=== PATIENT | male | born 1970 | race Caucasian/White ===

== ENCOUNTER 2019-05-24 10:22 | Inpatient (IN) | payer SELFPAY ==
[2019-05-24 10:47] LABS: HEMATOCRIT 54.1 % (37.9-51.0); HEMOGLOBIN 18.4 g/dL (13.5-17.0); MEAN CORPUSCULAR HEMOGLOBIN 34.9 pg (27.0-33.4); MEAN CORPUSCULAR HGB CONC 34.1 g/dL (32.0-36.0); MEAN CORPUSCULAR VOLUME 102 fl (80-97); RED BLOOD COUNT 5.28 10^6/uL (4.35-5.55); WHITE BLOOD COUNT 13.4 10^3/uL (4.0-10.5)
[2019-05-24] MEDS ORDERED: NORMAL SALINE 1000 ML 1,000 ML IV ONE ×2 (10:50→11:53)
[2019-05-24] MEDS ORDERED: PANTOPRAZOLE SODIUM 40 MG VIAL IV ONE (10:50)
[2019-05-24] MEDS ORDERED: LORAZEPAM INJ 2 MG/1 ML VIAL IV ONE ×5 (10:51→22:38)
[2019-05-24] MEDS ORDERED: ONDANSETRON HCL INJ/PF 4 MG/2 ML SDV IV ONE (10:51)
[2019-05-24 11:15] LABS: PLATELET COUNT 94 10^3/uL (150-450)
[2019-05-24 11:16] LABS: ABSOLUTE LYMPHOCYTES# (MANUAL) 0.8 10^3/uL (0.5-4.7); ABSOLUTE MONOCYTES # (MANUAL) 0.4 10^3/uL (0.1-1.4); BAND NEUTROPHILS % (MANUAL) 4 % (3-5); BASOPHILS % (MANUAL) 0 % (0-2); EOSINOPHILS % (MANUAL) 0 % (0-6); LYMPHOCYTES % (MANUAL) 6 % (13-45); MONOCYTES % (MANUAL) 3 % (3-13); SEGMENTED NEUTROPHILS % (MAN) 87 % (42-78); TOTAL CELLS COUNTED 100
[2019-05-24 11:20] LABS: PLATELET COMMENT DECREASED
[2019-05-24 11:21] LABS: INTERNATIONAL RATION (INR) 1.65; PARTIAL THROMBOPLASTIN TIME 38.5 SEC (23.5-35.8); PROTHROMBIN TIME 19.7 SEC (11.4-15.4)
[2019-05-24] MEDS ORDERED: CEFEPIME 2 GM/D5W RTU 50 ML IV ONE (11:36)
[2019-05-24] MEDS ORDERED: VANCOMYCIN HCL INJ 1000 MG VIAL IV ONE (11:37)
[2019-05-24 11:40] LABS: ALBUMIN 2.8 g/dL (3.5-5.0); ALCOHOL 158 mg/dL (NONE DETECTED); ALKALINE PHOSPHATASE 128 U/L (38-126); ASPARTATE AMINO TRANSFERASE 191 U/L (17-59); BLOOD UREA NITROGEN 12 mg/dL (7-20); CALCIUM 8.3 mg/dL (8.4-10.2); GLUCOSE 129 mg/dL (75-110); POTASSIUM 4.3 mmol/L (3.6-5.0); TOTAL PROTEIN 5.7 g/dL (6.3-8.2)
[2019-05-24 11:41] LABS: ACETAMINOPHEN < 10 ug/mL (10-30)
[2019-05-24 11:45] LABS: CARBON DIOXIDE 15 mmol/L (22-30); CHLORIDE 94 mmol/L (98-107)
[2019-05-24 11:48] LABS: ANION GAP 22 (5-19)
[2019-05-24] MEDS ORDERED: CEFEPIME HCL 2 GM in DEXTROSE 5%-WATER 50 ML IV ONE (12:00)
--- NOTE | 2019-05-24 12:32 | RADIOLOGY REPORT (SQ) ---
EXAM DESCRIPTION: ACUTE ABDOMEN SERIES IMAGES COMPLETED DATE/TIME: 05/24/2019 12:16 pm REASON FOR STUDY: n/v/d COMPARISON: None. NUMBER OF VIEWS: Three views. TECHNIQUE: Frontal chest, supine abdomen and upright/decubitus abdomen radiographic images acquired. LIMITATIONS: None. FINDINGS: CHEST: Lungs clear of infiltrates. FREE AIR: None. No abnormal gas collections. BOWEL GAS PATTERN: Nonobstructive pattern. No dilated loops or air fluid levels. CALCIFICATIONS: No suspicious calcifications. HARDWARE: None in the abdomen. SOFT TISSUES: No gross mass or suggestion of organomegaly. BONES: No acute fracture. No worrisome bone lesions. OTHER: No other significant finding. IMPRESSION: NO RADIOGRAPHIC EVIDENCE FOR ACUTE ABDOMINAL DISEASE. TECHNICAL DOCUMENTATION: JOB ID: [id number] 2010 [email or web address]- All Rights Reserved Reading location - IP/workstation name: [email or web address]
[2019-05-24] MEDS ORDERED: NOREPINEPHRINE BITARTRATE INJ/PF 4 MG/4 ML SDV IV ONE ×3 (14:14→22:54)
[2019-05-24] MEDS: DEXTROSE 5%-WATER 250 ML with NOREPINEPHRINE BITARTRATE 4 MG IV PRN ×6 (14:30→22:56)
[2019-05-24 14:59] LABS: AMORPHOUS SEDIMENT,URINE TRACE /HPF; APPEARANCE,URINE TURBID; BILIRUBIN,URINE NEGATIVE (NEGATIVE); COLOR,URINE AMBER; GLUCOSE, URINE 50 mg/dL (NEGATIVE); KETONES,URINE TRACE mg/dL (NEGATIVE); LEUKOCYTE ESTERASE,URINE NEGATIVE (NEGATIVE); NITRITE,URINE NEGATIVE (NEGATIVE); PROTEIN,URINE 100 mg/dL (NEGATIVE); URINE SPECIFIC GRAVITY 1.018; UROBILINOGEN,URINE NEGATIVE mg/dL (<2.0)
[2019-05-24 15:10] LABS: URINE AMPHETAMINES SCREEN NEGATIVE; URINE BARBITURATES SCREEN NEGATIVE; URINE BENZODIAZEPINES SCREEN NEGATIVE; URINE COCAINE SCREEN NEGATIVE; URINE MARIJUANA (THC) SCREEN NEGATIVE; URINE METHADONE SCREEN NEGATIVE; URINE PHENCYCLIDINE SCREEN NEGATIVE
[2019-05-24] MEDS ORDERED: ADENOSINE INJ/PF 6 MG/2 ML SDV IV ONE (16:19)
[2019-05-24] MEDS ORDERED: AMIODARONE HCL INJ 150 MG/3 ML VIAL IV ONE (16:19)
[2019-05-24] MEDS ORDERED: SODIUM BICARBONATE 8.4% INJ 50 MEQ/50 ML DISP.SYRIN ONE ×3 (16:19→19:17)
--- NOTE | 2019-05-24 17:04 | RADIOLOGY REPORT (SQ) ---
EXAM DESCRIPTION: CT ABD/PELVIS WITH IV ORAL IMAGES COMPLETED DATE/TIME: 05/24/2019 4:35 pm REASON FOR STUDY: abd pain COMPARISON: None. TECHNIQUE: CT scan of the abdomen and pelvis performed using helical scanning technique with dynamic intravenous contrast injection. He will oral contrast. Images reviewed with lung, soft tissue, and bone windows. Reconstructed coronal and sagittal MPR images reviewed. Delayed images for evaluation o f the urinary system also acquired. All images stored on PACS. All CT scanners at this facility use dose modulation, iterative reconstruction, and/or weight based d osing when appropriate to reduce radiation dose to as low as reasonably achievable (ALARA). [facility]: Dose Right [facility]: CareDose [facility]: Dose Right [facility]: Teradose 4D [facility]: [employer] CONTRAST TYPE AND DOSE: 80 Omnipaque 350- low osmolar. RENAL FUNCTION: Creatinine 1.37 RADIATION DOSE: . LIMITATIONS: None. FINDINGS: LOWER CHEST: See separate report of the CT of the chest. LIVER: Diffuse fatty infiltration of the liver. Heterogeneous pattern. No focal masses. SPLEEN: Normal size. No focal lesions. PANCREAS: Extensive peripancreatic fluid. Fatty pancreas. GALLBLADDER: No identified stones by CT criteria. No inflammatory changes to suggest cholecystitis. ADRENAL GLANDS: No significant masses or asymmetry. RIGHT KIDNEY AND URETER: No solid masses. No significant calcifications. No hydronephrosis or hyd roureter. Little contrast seen in the collecting system on delayed images. LEFT KIDNEY AND URETER: No solid masses. No significant calcifications. No hydronephrosis or hydr oureter. Little contrast seen the collecting system on delayed images. AORTA AND VESSELS: No aneurysm. No dissection. Renal arteries, SMA, celiac without stenosis. RETROPERITONEUM: No retroperitoneal adenopathy, hemorrhage or masses. BOWEL AND PERITONEAL CAVITY: No inflammatory changes in the bowel. There is marked ascites. Fluid i s seen in the perineum and along the gutters. Around the liver spleen in the pancreas. APPENDIX: Not visualized. PELVIS: Fluid in the pelvis. Bladder unremarkable. ABDOMINAL WALL: No masses. No hernias. BONES: No significant or acute findings. OTHER: No other significant finding. IMPRESSION: Marked fatty liver with a diffuse heterogeneous pattern to the liver but no focal masses . Extensive fluid around the pancreas and extending along the gutters and into the abdomen pelvis. Flu id around the liver and spleen. These findings related either to cirrhosis or pancreatitis. No contrast seen in the ureters on delayed imaging. Question early phase of imaging versus renal tub ular dysfunction. TECHNICAL DOCUMENTATION: JOB ID: [id number] Quality ID # 436: Final reports with documentation of one or more dose reduction techniques (e.g., Au tomated exposure control, adjustment of the mA and/or kV according to patient size, use of iterative reconstruction technique) 2010 [employer]- All Rights Reserved Reading location - IP/workstation name: [email or web address]
--- NOTE | 2019-05-24 17:06 | RADIOLOGY REPORT (SQ) ---
EXAM DESCRIPTION: CTA CHEST IMAGES COMPLETED DATE/TIME: 05/24/2019 4:36 pm REASON FOR STUDY: tachycardia COMPARISON: None. TECHNIQUE: CT scan of the chest performed using helical scanning technique with dynamic intravenous contrast injection. Images reviewed with lung, soft tissue and bone windows. Reconstructed coronal and sagittal MPR images reviewed. Additional 3 dimensional post-processing performed to develop Maximal Intensity Projection images (SD P). All images stored on PACS. All CT scanners at this facility use dose modulation, iterative reconstruction, and/or weight based d osing when appropriate to reduce radiation dose to as low as reasonably achievable (ALARA). [facility]: Dose Right [facility]: CareDose [facility]: Dose Right [facility]: Teradose 4D [facility]: [employer] CONTRAST TYPE AND DOSE: contrast/concentration: Isovue mg/ml; Total Contrast Delivered: 80.0 ml; To german Saline Delivered: 80.0 ml Contrast bolus adequate for pulmonary arteries and aorta. RENAL FUNCTION: Creatinine 1.37 RADIATION DOSE: CT Rad equipment meets quality standard of care and radiation dose reduction techniq ues were employed. CTDIvol: 7.6 - 29.8 mGy. DLP: 2886 mGy-cm. . LIMITATIONS: None. FINDINGS: LUNGS AND PLEURA: Fluid in the interstitium. Small effusions and atelectasis at the bases . No pneumothorax. AORTA AND GREAT VESSELS: No aneurysm. Contrast bolus not optimized for the aorta. HEART: No pericardial effusion. No significant coronary artery calcifications. PULMONARY ARTERIES: No emboli visualized in the main pulmonary arteries or the segmental branches. HILAR AND MEDIASTINAL STRUCTURES: No identified masses or abnormal nodes. HARDWARE: None in the chest. UPPER ABDOMEN: See separate report of the CT of the abdomen. THYROID AND OTHER SOFT TISSUES: No masses. No adenopathy. BONES: No acute or significant finding. 3D MIPS: Confirm above findings. OTHER: No other significant finding. IMPRESSION: No pulmonary emboli. Fluid in the interstitium of the lungs with basilar opacities and small effusions. COMMENT: Quality ID # 436: Final reports with documentation of one or more dose reduction techniques (e.g., Automated exposure control, adjustment of the mA and/or kV according to patient size, use of iterative reconstruction technique) TECHNICAL DOCUMENTATION: JOB ID: [id number] 2010 [employer]- All Rights Reserved Reading location - IP/workstation name: [email or web address]
[2019-05-24] MEDS ORDERED: THIAMINE HCL INJ 200 MG/2 ML VIAL IM ONE (17:49)
[2019-05-24] MEDS ORDERED: EPINEPHRINE INJ/PF 1 MG/1 ML AMPULE ONE (18:06)
[2019-05-24] MEDS ORDERED: DEXTROSE 5%-WATER 250 ML with EPINEPHRINE/PF 1 MG IV PRN ×2 (18:12)
--- NOTE | 2019-05-24 18:20 | RADIOLOGY REPORT (SQ) ---
EXAM DESCRIPTION: CT HEAD WITHOUT IMAGES COMPLETED DATE/TIME: 05/24/2019 4:35 pm REASON FOR STUDY: altered mental status COMPARISON: None. TECHNIQUE: Axial images acquired through the brain without intravenous contrast. Images reviewed wi th bone, brain and subdural windows. Additional sagittal and coronal reconstructions were generated. Images stored on PACS. All CT scanners at this facility use dose modulation, iterative reconstruction, and/or weight based d osing when appropriate to reduce radiation dose to as low as reasonably achievable (ALARA). [facility]: Dose Right [facility]: CareDose [facility]: Dose Right [facility]: Teradose 4D [facility]: [employer] RADIATION DOSE: CT Rad equipment meets quality standard of care and radiation dose reduction techniq ues were employed. CTDIvol: 53.2 mGy. DLP: 1070 mGy-cm. mGy. LIMITATIONS: None. FINDINGS: VENTRICLES: Normal size and contour. CEREBRUM: No masses. No hemorrhage. No midline shift. No evidence for acute infarction. Normal gra y/white matter differentiation. No areas of low density in the white matter. CEREBELLUM: No masses. No hemorrhage. No alteration of density. No evidence for acute infarction. EXTRAAXIAL SPACES: No fluid collections. No masses. ORBITS AND GLOBE: No intra- or extraconal masses. Normal contour of globe without masses. CALVARIUM: No fracture. PARANASAL SINUSES: No fluid or mucosal thickening. SOFT TISSUES: No mass or hematoma. OTHER: No other significant finding. IMPRESSION: NORMAL BRAIN CT WITHOUT CONTRAST. EVIDENCE OF ACUTE STROKE: NO. COMMENT: Quality ID # 436: Final reports with documentation of one or more dose reduction techniques (e.g., Automated exposure control, adjustment of the mA and/or kV according to patient size, use of iterative reconstruction technique) TECHNICAL DOCUMENTATION: JOB ID: [id number] 2010 [employer]- All Rights Reserved Reading location - IP/workstation name: [email or web address]
[2019-05-24] MEDS ORDERED: ALBUMIN HUMAN 500 ML IV ONE ×2 (18:30→18:38)
--- NOTE | 2019-05-24 18:32 | ER Document Report ---
Entered by FOX DEL TORO SCRIBE 05/24/19 1606 Acting as scribe for:SHERRIE SCHULER MD ED GI/ - General Chief Complaint: Abdominal Pain Stated Complaint: STOMACH PAIN Time Seen by Provider: 05/24/19 10:47 Information source: Emergency Med Personnel Notes: This 48 year old male patient presents to the emergency department today with abdominal pain. Patient arrived by EMS and personnel are at bedside. EMS states the patient had epigastric pain last night after eating [place]ian food and vomited x5 times. EMS states the patient has not urinated for x2 days and had trouble walking this morning. EMS states the patient was hypotensive and tachycardic prior to arriving at the ED. EMS states the patient was pale, vomiting, and his skin was cool. Patient drinks beer daily. - Related Data Allergies/Adverse Reactions: No Known Allergies Allergy (Verified 05/24/19 10:50) Past Medical History - General Information source: Emergency Med Personnel - Social History Smoking Status: Unknown if Ever Smoked Chew tobacco use (# tins/day): No Frequency of alcohol use: 3 / 4 beers a day Drug Abuse: None Family History: None Patient has suicidal ideation: No Patient has homicidal ideation: No - Past Medical History Cardiac Medical History: Reports: Hx Hypercholesterolemia - Immunizations Hx Diphtheria, Pertussis, Tetanus Vaccination: Yes Review of Systems - Review of Systems Constitutional: No symptoms reported EENT: No symptoms reported Cardiovascular: See HPI Respiratory: No symptoms reported Gastrointestinal: See HPI, Abdominal pain, Vomiting Genitourinary: See HPI Male Genitourinary: No symptoms reported Musculoskeletal: No symptoms reported Skin: No symptoms reported Hematologic/Lymphatic: No symptoms reported Neurological/Psychological: No symptoms reported -: Yes All other systems reviewed and negative Physical Exam - Vital signs Vitals: Resp Pulse Ox 28 H 97 05/24/19 10:25 05/24/19 10:25 - General General appearance: Lethargic In distress: Moderate - Moderate to severe distress. - HEENT Head: Normocephalic, Atraumatic Eyes: Normal Pupils: PERRL - Respiratory Respiratory status: No respiratory distress Chest status: Nontender Breath sounds: Normal - Cardiovascular Rhythm: Tachycardia Heart sounds: S1 appreciated, S2 appreciated Normal capillary refill: No - Diminished. Notes: Spider angioma on the upper chest. - Abdominal Distension: Distended, Fluid wave Bowel sounds: Normal Tenderness: Tender. No: Guarding - Extremities General upper extremity: Normal inspection. No: Edema General lower extremity: Normal inspection. No: Edema - Neurological Neuro grossly intact: Yes Cognition: Normal Orientation: AAOx4 - Psychological Associated symptoms: Normal affect, Normal mood - Skin Skin Temperature: Cool Skin Color: Pale Course - Re-evaluation Re-evalutation: 05/24/19 18:24 Patient's condition has worsened over the ED course to requiring a total of 5 L IV fluids a norepinephrine drip for hypotension and the addition of an epinephrine drip at this time to create a systolic blood pressure greater than 77 where he is now. Patient's heart rate tachycardia has improved from 140s down to 105 110 at this time showing a normal sinus rhythm tachycardia. Patient's mental status is somewhat subdued though is easily aroused and is able to carry on a conversation. Patient still appears agitated as though he is perhaps in delirium tremens or is having some other metabolic insult. Patient apparently has acute pancreatitis ascites dehydration and lack of urine output at this time. Patient was cultured x2 and blood cultures and IV antibiotics of vancomycin and cefepime were given. - Vital Signs Vital signs: Temp Pulse Resp BP Pulse Ox 98.0 F 24 H 65/41 L 99 05/24/19 10:45 05/24/19 18:02 05/24/19 18:02 05/24/19 18:02 - Laboratory Result Diagrams: 05/24/19 09:42 05/24/19 11:08 Laboratory results interpreted by me: 05/24/19 05/24/19 05/24/19 09:42 09:42 09:42 WBC 13.4 H Hgb 18.4 H Hct 54.1 H MCV 102 H MCH 34.9 H Plt Count 94 L Seg Neuts % (Manual) 87 H Lymphocytes % (Manual) 6 L Abs Neuts (Manual) 12.2 H PT 19.7 H APTT 38.5 H D-Dimer Sodium Chloride Carbon Dioxide Anion Gap Creatinine Est GFR (MDRD) Non-Af Glucose POC Glucose Lactic Acid 13.2 H Calcium Total Bilirubin Direct Bilirubin AST Alkaline Phosphatase Total Protein Albumin Lipase Urine Protein Urine Glucose (UA) Urine Ketones Urine Blood Acetaminophen 05/24/19 05/24/19 05/24/19 11:08 11:08 14:03 WBC Hgb Hct MCV MCH Plt Count Seg Neuts % (Manual) Lymphocytes % (Manual) Abs Neuts (Manual) PT APTT D-Dimer Sodium 130.9 L Chloride 94 L Carbon Dioxide 15 L Anion Gap 22 H Creatinine 1.37 H Est GFR (MDRD) Non-Af 55 L Glucose 129 H POC Glucose Lactic Acid Calcium 8.3 L Total Bilirubin 2.0 H Direct Bilirubin 1.0 H AST 191 H Alkaline Phosphatase 128 H Total Protein 5.7 L Albumin 2.8 L Lipase 42933.0 H Urine Protein 100 H Urine Glucose (UA) 50 H Urine Ketones TRACE H Urine Blood LARGE H Acetaminophen < 10 L 05/24/19 05/24/19 05/24/19 15:29 15:34 16:45 WBC Hgb Hct MCV MCH Plt Count Seg Neuts % (Manual) Lymphocytes % (Manual) Abs Neuts (Manual) PT APTT D-Dimer > 20.00 H* Sodium Chloride Carbon Dioxide Anion Gap Creatinine Est GFR (MDRD) Non-Af Glucose POC Glucose Lactic Acid 13.1 H Calcium Total Bilirubin Direct Bilirubin AST Alkaline Phosphatase Total Protein Albumin Lipase 08507.6 H Urine Protein Urine Glucose (UA) Urine Ketones Urine Blood Acetaminophen 05/24/19 17:59 WBC Hgb Hct MCV MCH Plt Count Seg Neuts % (Manual) Lymphocytes % (Manual) Abs Neuts (Manual) PT APTT D-Dimer Sodium Chloride Carbon Dioxide Anion Gap Creatinine Est GFR (MDRD) Non-Af Glucose POC Glucose 134 H Lactic Acid Calcium Total Bilirubin Direct Bilirubin AST Alkaline Phosphatase Total Protein Albumin Lipase Urine Protein Urine Glucose (UA) Urine Ketones Urine Blood Acetaminophen - EKG Interpretation by Me Additional EKG results interpreted by me: 05/24/19 16:50 Twelve-lead EKG shows sinus tachycardia rate of 134 05/24/19 17:57 Repeat 1652 shows sinus tach 142 borderline T wave abnormalities inferior leads Repeat EKG done at 1750 T shows a sinus tachycardia [address]-T wave changes. Critical Care Note - Critical Care Note Total time excluding time spent on procedures (mins): 59 - Hypotension, sepsis, pancreatitis, decreased urine output, sinus tachycardia, and mental status changes. Discharge - Discharge Clinical Impression: Intractable nausea and vomiting, Dehydration, Sinus tachycardia, Hypotension, Altered mental status, Acute pancreatitis Condition: Critical Disposition: ADMITTED INPATIENT Admitting Provider: Wolf (Heavy Forging Machine Operator) Unit Admitted: ICU I personally performed the services described in the documentation, reviewed and edited the documentation which was dictated to the scribe in my presence, and it accurately records my words and actions.
[2019-05-24] MEDS ORDERED: ETOMIDATE INJ/PF 20 MG/10 ML SDV IV ONE (19:12)
--- NOTE | 2019-05-24 19:26 | RADIOLOGY REPORT (SQ) ---
EXAM DESCRIPTION: CHEST SINGLE VIEW IMAGES COMPLETED DATE/TIME: 05/24/2019 7:17 pm REASON FOR STUDY: er t1 COMPARISON: CT scan 05/24/2019 EXAM PARAMETERS: NUMBER OF VIEWS: One view. TECHNIQUE: Single frontal radiographic view of the chest acquired. RADIATION DOSE: NA LIMITATIONS: None. FINDINGS: LUNGS AND PLEURA: Increasing bibasilar opacities. MEDIASTINUM AND HILAR STRUCTURES: No masses. Contour normal. HEART AND VASCULAR STRUCTURES: Heart normal in size. Normal vasculature. BONES: No acute findings. HARDWARE: Venous access catheter via right IJ approach. Tip in the right atrium. OTHER: No other significant finding. IMPRESSION: Venous access catheter expected location. Increasing basilar opacities. TECHNICAL DOCUMENTATION: JOB ID: [id number] 2010 [employer]- All Rights Reserved Reading location - IP/workstation name: [email or web address]
[2019-05-24] MEDS ORDERED: PROPOFOL 1,000 MG/100 ML INFUS..BTL IV PRN (19:33)
[2019-05-24] MEDS ORDERED: DEXMEDETOMIDINE IN 0.9 % NACL 400 MCG/100 ML RTUPB IV ONE (19:35)
--- NOTE | 2019-05-24 20:03 | Operative Report ---
Bedside Procedure - History of Present Illness History of Present Illness: 48-year-old male presented with abdominal pain after eating Sudanese food. He presented to the emergency room with severe hypotension with tachycardia and required vasopressor therapy. Was placed on Levophed and epinephrine required central access secondary to dehydration and the need for vasopressor therapy. Indication for Procedure: Shock Date: 05/24/19 Provider: TOMI CHOE - Central Line Right Internal jugular Time completed: 18:45 Consent obtained: Yes Central line pre-insertion: Sterile PPE donned, Chloraprep applied, Sterile drapes applied Central line lumen type: Triple Anesthetic type: 1% Lidocaine mL's of anesthesia: 4 Ultrasound guided: Yes CM at insertion site: 15 Line secured with sutures: Yes Central line post-insertion: Blood return from lumens, Biopatch applied, Sutured, Sterile dressing applied, Position confirmed w/ CXR, Other - Wire confirmed inside internal jugular tip of triple-lumen catheter at RA SVC junction Number of attempts: 2 Complications: No
[2019-05-24] MEDS ORDERED: NORMAL SALINE INJ/PF 0.9% 10 ML SDV IV PRN (20:09)
[2019-05-24] MEDS ORDERED: PHARMACY COMMUNICATION ORDER MC NR (20:15)
[2019-05-24 20:22] LABS: CHOLESTEROL 275.65 mg/dL (0-200); PHOSPHORUS 5.4 mg/dL (2.5-4.5); TRIGLYCERIDES 166 mg/dL (<150)
--- NOTE | 2019-05-24 20:23 | RADIOLOGY REPORT (SQ) ---
CLINICAL INDICATION: post intubation. TECHNIQUE: A single portable AP view was obtained of the chest at 1928 hours. COMPARISON: 1909. FINDINGS: The cardiomediastinal silhouette is prominent but stable. The lungs are grossly clear. No evidence of effusion or pneumothorax. Endotracheal tube tip is upper limits of acceptable just below thoracic inlet, 7 cm above the ramana. Nasogastric tube tip is in good position. Right IJ central venous catheter tip in good position. IMPRESSION: Endotracheal tube tip upper limits of acceptable.
[2019-05-24 20:34] LABS: DIRECT LDL 202 mg/dL (<100)
[2019-05-24] MEDS ORDERED: MAGNESIUM SULFATE 4 GM/100 ML RTUPB IV ONE (20:34)
[2019-05-24 20:36] LABS: VLDL CHOLESTEROL 33.2 mg/dL (10-31)
[2019-05-24] MEDS ORDERED: PROPOFOL 1,000 MG/100 ML INFUS..BTL IV ONE (20:43)
[2019-05-24] MEDS ORDERED: PHENYLEPHRINE HCL INJ/PF 10 MG/1 ML SDV ONE ×2 (20:46→20:47)
[2019-05-24] MEDS ORDERED: ZINC SULFATE 220 MG CAPSULE NG ONE (21:00)
[2019-05-24] MEDS ORDERED: D5W IV ONE (21:07)
[2019-05-24] MEDS ORDERED: MAGNESIUM SULFATE IV ONE (21:07)
[2019-05-24] MEDS ORDERED: MIDAZOLAM HCL 50 MG/100 ML RTUINJ ONE (21:15)
[2019-05-24] MEDS: DEXTROSE 5%-WATER 250 ML with PHENYLEPHRINE HCL 40 MG IV PRN ×2 (21:20)
[2019-05-24] MEDS: MIDAZOLAM HCL 50 MG/100 ML RTUINJ IV PRN (21:30)
[2019-05-24] MEDS ORDERED: FOLIC ACID INJ 5 MG/1 ML 10 ML VIAL ONE (21:33)
[2019-05-24] MEDS: MAGNESIUM SULFATE/D5W 1 GM/100 ML RTUPB IV SCH ×3 (21:38→23:05)
[2019-05-24] MEDS: PANTOPRAZOLE SODIUM 40 MG VIAL IV SCH (21:39)
[2019-05-24] MEDS: HYDROCORTISONE SOD SUCCINATE INJ/PF 100 MG/2 ML SDV IV SCH (21:41)
[2019-05-24 21:42] LABS: CREATINE KINASE MB 3.19 ng/mL (<4.55); TROPONIN I 0.056 ng/mL
[2019-05-24 21:48] LABS: C-REACTIVE PROTEIN 46.8 mg/L (<10.0)
[2019-05-24] MEDS: MINERAL OIL/PETROLATUM,WHITE OPH OINT 3.5 GM OU SCH (21:53)
[2019-05-24] MEDS ORDERED: FOLIC ACID INJ 5 MG/1 ML 10 ML VIAL IV SCH (22:00)
[2019-05-24] MEDS ORDERED: THIAMINE HCL INJ 200 MG/2 ML VIAL IV SCH (22:00)
[2019-05-24 22:06] LABS: ARTERIAL BLOOD BASE EXCESS -13.5 mmol/L; ARTERIAL BLOOD H2CO3 0.91 mmol/L (1.05-1.35); ARTERIAL BLOOD HCO3 12.6 mmol/L (20-24); ARTERIAL BLOOD O2 SATURATION 94.6 % (94-98); ARTERIAL BLOOD PCO2 30.2 mmHg (35-45); ARTERIAL BLOOD PH 7.24 (7.35-7.45); ARTERIAL BLOOD PO2 83.3 mmHg (80-100); ARTERIAL BLOOD TOTAL CO2 13.5 mmol/L (23-27)
[2019-05-24 22:07] LABS: ARTERIAL BLOOD FIO2 40%
--- NOTE | 2019-05-24 22:28 | EKG REPORT ---
SEVERITY:- OTHERWISE NORMAL ECG - SINUS TACHYCARDIA : Confirmed by: Hellen Luque MD 24-May-2019 22:28:13
--- NOTE | 2019-05-24 22:28 | EKG REPORT ---
SEVERITY:- BORDERLINE ECG - SINUS TACHYCARDIA BORDERLINE T ABNORMALITIES, INFERIOR LEADS : Confirmed by: Hellen Luque MD 24-May-2019 22:28:19
--- NOTE | 2019-05-24 22:28 | EKG REPORT ---
SEVERITY:- OTHERWISE NORMAL ECG - SINUS TACHYCARDIA : Confirmed by: Hellen Luque MD 24-May-2019 22:28:09
--- NOTE | 2019-05-24 22:28 | EKG REPORT ---
SEVERITY:- OTHERWISE NORMAL ECG - SINUS TACHYCARDIA : Confirmed by: Hellen Luque MD 24-May-2019 22:28:24
--- NOTE | 2019-05-24 22:31 | Operative Report ---
Bedside Procedure - History of Present Illness History of Present Illness: indication: Respiratory Failure Procedure tube sizer and cutter operator: Mushtaq Guerrero Attending physician: Dr. Bloom Consent: Emergency procedure with cardiac arrest. Procedure summary: My hands were washed immediately prior to the procedure. I were surgical cap, mask with protective eyewear, gown and gloves throughout the procedure. The patient was placed on a quality assurance monitor body including continuous pulse oximetry. Patient was unresponsive and did not require sedation for this procedure. Cricoid pressure was maintained from time induction agent was given the time of cuff balloon inflation. Using a size 4 Meera laryngoscope and a size 1.5 endotracheal tube with stylette, the patient was intubated on the first attempt. The stylette was removed and the cuff balloon was inflated. Appropriate endotracheal tube position was confirmed by direct visualization of vocal cord passage, CO2 colorimetric indicator and symmetric breath sounds. The tube was secured at 24 centimeters at the lips. Post intubation chest x-ray confirms ET tube at 6 centimeters above the ramana. The ET tube was advanced 2 cm and is now at 26 cm at the lips. Indication for Procedure: Respiratory Failure Date: 05/24/19 Provider: MUSHTAQ GUERRERO
[2019-05-24] MEDS ORDERED: RINGERS SOLUTION,LACTATED 1,000 ML IV PRN (22:37)
[2019-05-25] MEDS: MAGNESIUM SULFATE/D5W 1 GM/100 ML RTUPB IV SCH (00:10)
[2019-05-25] MEDS ORDERED: PHENYLEPHRINE HCL INJ/PF 10 MG/1 ML SDV ONE ×2 (00:44→04:17)
[2019-05-25] MEDS: DEXTROSE 5%-WATER 250 ML with PHENYLEPHRINE HCL 40 MG IV PRN ×8 (00:46→15:24)
[2019-05-25] MEDS ORDERED: VASOPRESSIN INJ 20 UNIT/1 ML VIAL ONE (01:07)
[2019-05-25] MEDS ORDERED: IMIPENEM/CILASTATIN SODIUM INJ 500 MG VIAL IV PRN (01:22)
[2019-05-25] MEDS ORDERED: IMIPENEM/CILASTATIN SODIUM 500 MG in NORMAL SALINE 100 ML IV ONE (01:30)
[2019-05-25] MEDS ORDERED: NOREPINEPHRINE BITARTRATE INJ/PF 4 MG/4 ML SDV IV ONE ×2 (01:53→05:14)
[2019-05-25 02:13] LABS: ANION GAP 17 (5-19); BLOOD UREA NITROGEN 20 mg/dL (7-20); CARBON DIOXIDE 14 mmol/L (22-30); CHLORIDE 95 mmol/L (98-107); GLUCOSE 240 mg/dL (75-110); POTASSIUM 3.8 mmol/L (3.6-5.0)
[2019-05-25] MEDS ORDERED: IMIPENEM/CILASTATIN SODIUM INJ 500 MG VIAL IV ONE (02:15)
[2019-05-25] MEDS: MIDAZOLAM HCL 50 MG/100 ML RTUINJ IV PRN ×4 (02:20→16:13)
[2019-05-25] MEDS: DEXTROSE 5%-WATER 250 ML with NOREPINEPHRINE BITARTRATE 4 MG IV PRN ×14 (02:20→22:56)
[2019-05-25 02:28] LABS: CALCIUM 6.3 mg/dL (8.4-10.2)
[2019-05-25] MEDS ORDERED: SODIUM BICARBONATE 8.4% INJ 50 MEQ/50 ML DISP.SYRIN ONE (02:35)
[2019-05-25] MEDS ORDERED: DEXTROSE 5%-NORMAL SALINE 1,000 ML IV PRN (02:46)
[2019-05-25] MEDS ORDERED: DEXTROSE 5%-WATER 250 ML with VASOPRESSIN 100 UNIT IV PRN ×2 (02:54)
--- NOTE | 2019-05-25 02:54 | Operative Report ---
Bedside Procedure - History of Present Illness History of Present Illness: Indication: Hypotension with multiple vasoactive medications. Procedure lacquer spray booth operator: Saad Guerrero Attending physician: Dr. Bloom Consent: Sent was obtained from patient's mother prior to the procedure. Indications, risks, and benefits were explained at length. Procedure summary: A timeout was performed. My hands were washed immediately prior to the procedure. I were surgical cap, mask with protective eyewear, sterile gown and sterile gloves throughout the procedure. After an Marcin test was performed to ensure adequate perfusion and collateral circulation, the right wrist was prepped using chlorhexidine scrub and draped in sterile fashion. A radial pulse was identified and the wrist was positioned in the optimal position for radial cannulation. Anesthesia was achieved using 1% lidocaine. Using the radial arterial line kit, a needle was inserted into the radial artery. Arterial blood was seen to pulsate in the flash chamber. The internal guidewire was advanced easily into the radial artery. The catheter was then advanced over the wire and the needle and wire were withdrawn. The catheter was sutured in place. A sterile OpSite was placed over the catheter at the insertion site. The patient tolerated the procedure without any hemodynamic compromise. At the time of procedure completion, the catheter was connected to the site monitor and calibrated. Appropriate waveform and blood pressure tracing was observed. Estimated blood loss is 10 cc. The above represents the third attempt at arterial cannulation. Left radial and left axillary artery line placement was attempted prior. Patient maintained good circulation despite not being able to cannulate the left side. No apparent hematoma evident over the left radial and axillary arteries. Indication for Procedure: Blood pressure monitoring, Hypotension on Multiple vasoactive medications. Date: 05/24/19 Provider: ASAD GUERRERO
[2019-05-25] MEDS ORDERED: DEXTROSE 5%-WATER 1000 ML 1,000 ML with SODIUM BICARBONATE 100 MEQ IV PRN ×2 (04:20)
[2019-05-25] MEDS ORDERED: DEXTROSE 50%-WATER 25 GM/50 ML DISP.SYRIN IV PRN ×4 (04:21→13:30)
[2019-05-25] MEDS ORDERED: GLUCAGON,HUMAN RECOMB 1 MG INJ IM PRN ×2 (04:21→13:30)
[2019-05-25] MEDS ORDERED: DEXTROSE 40% GEL 15 GM TUBE PO PRN ×4 (04:21→13:30)
[2019-05-25] MEDS: MINERAL OIL/PETROLATUM,WHITE OPH OINT 3.5 GM OU SCH ×3 (05:02→21:08)
[2019-05-25] MEDS: INSULIN REG, HUMAN 100 UNIT/ML 3 ML VIAL (PYX) SUBCUT SCH ×2 (05:30→11:47)
[2019-05-25] MEDS: HYDROCORTISONE SOD SUCCINATE INJ/PF 100 MG/2 ML SDV IV SCH ×3 (05:30→21:13)
[2019-05-25 06:16] LABS: HEMATOCRIT 37.5 % (37.9-51.0); MEAN CORPUSCULAR HEMOGLOBIN 34.7 pg (27.0-33.4); MEAN CORPUSCULAR VOLUME 102 fl (80-97); RED BLOOD COUNT 3.68 10^6/uL (4.35-5.55); RED CELL DISTRIBUTION WIDTH 12.7 % (11.5-14.0); WHITE BLOOD COUNT 12.7 10^3/uL (4.0-10.5)
[2019-05-25 06:18] LABS: INTERNATIONAL RATION (INR) 1.61; PROTHROMBIN TIME 19.3 SEC (11.4-15.4)
[2019-05-25 06:19] LABS: PARTIAL THROMBOPLASTIN TIME 52.3 SEC (23.5-35.8)
[2019-05-25 06:26] LABS: URINE CREATININE 72.1 mg/dL (22-328)
[2019-05-25 06:31] LABS: ALBUMIN 2.2 g/dL (3.5-5.0); ALKALINE PHOSPHATASE 58 U/L (38-126); ANION GAP 16 (5-19); ASPARTATE AMINO TRANSFERASE 175 U/L (17-59); BILIRUBIN,DIRECT 3.1 mg/dL (0.0-0.4); BLOOD UREA NITROGEN 21 mg/dL (7-20); CARBON DIOXIDE 14 mmol/L (22-30); CHLORIDE 94 mmol/L (98-107); GLUCOSE 301 mg/dL (75-110); PHOSPHORUS 4.6 mg/dL (2.5-4.5); POTASSIUM 4.1 mmol/L (3.6-5.0); TOTAL PROTEIN 4.5 g/dL (6.3-8.2); TRIGLYCERIDES 222 mg/dL (<150)
--- NOTE | 2019-05-25 06:34 | RADIOLOGY REPORT (SQ) ---
Chest one view on 05/25/2019 at 6:13 AM CLINICAL INDICATION: Respiratory failure, intubated COMPARISON: 05/24/2019 FINDINGS: ET tube has been advanced with its tip now in the mid thoracic trachea approximately 3.7 cm above the level of the ramana. NG tube extends into the body of the stomach. Right IJ catheter tip is in the SVC. A few wires are noted projecting over the chest. There is mild left retrocardiac opacity consistent with atelectasis and/or pneumonia. Lungs are otherwise clear. Cardiac, hilar and mediastinal contours are within normal limits. Pulmonary vascularity is within normal limits. IMPRESSION: Advancement of the ET tube which is in good position with otherwise no significant change.
[2019-05-25 06:42] LABS: DIRECT LDL 93 mg/dL (<100)
[2019-05-25 07:00] LABS: PLATELET COUNT 55 10^3/uL (150-450)
[2019-05-25 07:01] LABS: HEMOGLOBIN 12.8 g/dL (13.5-17.0)
[2019-05-25 07:08] LABS: ABSOLUTE LYMPHOCYTES# (MANUAL) 0.6 10^3/uL (0.5-4.7); BAND NEUTROPHILS % (MANUAL) 15 % (3-5); BASOPHILS % (MANUAL) 0 % (0-2); EOSINOPHILS % (MANUAL) 2 % (0-6); LYMPHOCYTES % (MANUAL) 5 % (13-45); MONOCYTES % (MANUAL) 16 % (3-13); MYELOCYTES % (MANUAL) 1 % (0); SEGMENTED NEUTROPHILS % (MAN) 61 % (42-78); TOTAL CELLS COUNTED 100
[2019-05-25 07:11] LABS: PLATELET COMMENT DECREASED; TEAR DROP CELLS SLIGHT
[2019-05-25 07:31] LABS: AMYLASE 2112 U/L (30-110); VLDL CHOLESTEROL 44.4 mg/dL (10-31)
[2019-05-25 07:33] LABS: CALCIUM 6.1 mg/dL (8.4-10.2)
[2019-05-25] MEDS ORDERED: IMIPENEM/CILASTATIN SODIUM 500 MG in NORMAL SALINE 100 ML IV SCH (09:00)
[2019-05-25] MEDS: PANTOPRAZOLE SODIUM 40 MG VIAL IV SCH ×2 (09:11→21:13)
[2019-05-25] MEDS ORDERED: FOLIC ACID 1 MG in NORMAL SALINE 50 ML IV SCH (10:00)
[2019-05-25] MEDS ORDERED: THIAMINE HCL 250 MG in NORMAL SALINE 50 ML IV SCH (10:00)
[2019-05-25] MEDS ORDERED: ZINC SULFATE 220 MG CAPSULE NG SCH (10:00)
[2019-05-25 11:26] LABS: ARTERIAL BLOOD BASE EXCESS -10.2 mmol/L; ARTERIAL BLOOD FIO2 40%; ARTERIAL BLOOD H2CO3 0.88 mmol/L (1.05-1.35); ARTERIAL BLOOD HCO3 14.6 mmol/L (20-24); ARTERIAL BLOOD O2 SATURATION 76.4 % (94-98); ARTERIAL BLOOD PCO2 29.4 mmHg (35-45); ARTERIAL BLOOD PH 7.31 (7.35-7.45); ARTERIAL BLOOD PO2 43.7 mmHg (80-100); ARTERIAL BLOOD TOTAL CO2 15.5 mmol/L (23-27)
[2019-05-25] MEDS ORDERED: VANCOMYCIN HCL 1,500 MG in DEXTROSE 5%-WATER 250 ML IV ONE (11:30)
[2019-05-25] MEDS ORDERED: PYRIDOXINE HCL INJ 100 MG/1 ML VIAL IV ONE (12:30)
[2019-05-25] MEDS: SODIUM BICARBONATE IV PRN ×4 (12:59→23:36)
[2019-05-25] MEDS: WATER IV PRN ×4 (12:59→23:36)
[2019-05-25] MEDS: DEXTROSE 5% IV PRN ×4 (12:59→23:36)
[2019-05-25] MEDS: MEROPENEM 1 GM in NORMAL SALINE 50 ML IV SCH ×2 (13:04→22:01)
[2019-05-25] MEDS ORDERED: DEXTROSE 5% IV ONE ×3 (13:30→14:00)
[2019-05-25] MEDS ORDERED: WATER IV ONE ×3 (13:30→14:00)
[2019-05-25] MEDS ORDERED: METHYLENE BLUE IV ONE ×3 (13:30→14:00)
[2019-05-25 13:58] LABS: PATH REVIEW PATHOLOGIST REVIEWED
--- NOTE | 2019-05-25 14:22 | RADIOLOGY REPORT (SQ) ---
EXAM DESCRIPTION: U/S ABDOMEN COMPLETE W/DOPPLER IMAGES COMPLETED DATE/TIME: 05/25/2019 1:43 pm REASON FOR STUDY: renal failure COMPARISON: CT of the abdomen and pelvis from 05/24/2019. TECHNIQUE: Dynamic and static grayscale images acquired of the abdomen and recorded on PACS. Additio nal selected color Doppler and spectral images recorded. Note: Study does not meet criteria for complete doppler/duplex scan LIMITATIONS: None. FINDINGS: PANCREAS: The pancreas is obscured by overlying bowel. LIVER: The echogenicity of the parenchyma is increased and there is attenuation of the far field. LIVER VASCULATURE: Hepatopetal directional flow within the portal veins. The hepatic veins are paten t. GALLBLADDER: The gallbladder wall measures 6 mm in thickness. There is sludge within the gallbladder lumen. There is no cholelithiasis or pericholecystic fluid. ULTRASOUND-DETECTED AZMORA'S SIGN: Negative. INTRAHEPATIC DUCTS AND COMMON DUCT: The CBD is obscured by overlying bowel. There is no dilatation o f the intrahepatic bile ducts. INFERIOR VENA CAVA: Obscured by overlying bowel. AORTA: Obscured by overlying bowel. RIGHT KIDNEY: The right kidney measures 12.3 cm in length. There is no hydronephrosis LEFT KIDNEY: The left kidney measures 10.7 cm in length. There is no hydronephrosis. SPLEEN: The spleen measures 10.7 cm in length PERITONEAL AND PLEURAL SPACES: There is a small amount of ascites. OTHER: No other finding. IMPRESSION: 1. Limited ultrasound of the abdomen with non visualization of the pancreas, IVC, aorta and CBD due to overlying bowel. 2. Increased echogenicity of hepatic parenchyma consistent with diffuse hepatocellular disease (most commonly hepatic steatosis). 3. No hydronephrosis. 4. No splenomegaly. 5. Small amount of ascites. 6. Circumferential thickening of the gallbladder wall. TECHNICAL DOCUMENTATION: JOB ID: [id number] 2010 [employer]- All Rights Reserved Reading location - IP/workstation name: [email or web address]
[2019-05-25] MEDS: FOLIC ACID IV SCH ×2 (14:24→20:50)
[2019-05-25] MEDS: NORMAL SALINE IV SCH ×2 (14:24→20:50)
[2019-05-25 14:33] LABS: ARTERIAL BLOOD BASE EXCESS -11.3 mmol/L; ARTERIAL BLOOD HCO3 12.4 mmol/L (20-24); ARTERIAL BLOOD O2 SATURATION 96.7 % (94-98); ARTERIAL BLOOD PCO2 23.1 mmHg (35-45); ARTERIAL BLOOD PH 7.35 (7.35-7.45); ARTERIAL BLOOD PO2 90.1 mmHg (80-100); ARTERIAL BLOOD TOTAL CO2 13.1 mmol/L (23-27)
[2019-05-25 14:40] LABS: ARTERIAL BLOOD FIO2 ROOM AIR
[2019-05-25] MEDS: THIAMINE HCL 250 MG in NORMAL SALINE 50 ML IV SCH ×2 (14:42→22:01)
[2019-05-25 14:45] LABS: ALBUMIN 2.2 g/dL (3.5-5.0); ALKALINE PHOSPHATASE 61 U/L (38-126); ANION GAP 17 (5-19); ASPARTATE AMINO TRANSFERASE 164 U/L (17-59); BILIRUBIN,DIRECT 3.6 mg/dL (0.0-0.4); BILIRUBIN,TOTAL 4.5 mg/dL (0.2-1.3); BLOOD UREA NITROGEN 24 mg/dL (7-20); CARBON DIOXIDE 13 mmol/L (22-30); CHLORIDE 89 mmol/L (98-107); POTASSIUM 4.9 mmol/L (3.6-5.0); TOTAL PROTEIN 4.6 g/dL (6.3-8.2)
[2019-05-25] MEDS: HYDROMORPHONE HCL 30 MG/60 ML RTUINJ IV PRN (14:54)
[2019-05-25 14:58] LABS: CALCIUM 5.2 mg/dL (8.4-10.2); GLUCOSE 403 mg/dL (75-110)
[2019-05-25] MEDS: MICAFUNGIN SODIUM 100 MG in NORMAL SALINE 100 ML IV SCH (14:58)
[2019-05-25 15:31] LABS: SALICYLATE < 1.0 mg/dL (2.0-20.0)
[2019-05-25] MEDS: NORMAL SALINE 100 ML with INSULIN REGULAR, HUMAN 100 UNIT IV PRN ×2 (15:47)
[2019-05-25 16:40] LABS: C-REACTIVE PROTEIN 166.1 mg/L (<10.0)
[2019-05-25] MEDS ORDERED: CALCIUM CHLORIDE 10% PF/INJ 1000 MG/10 ML SDV IV ONE (17:30)
[2019-05-25] MEDS ORDERED: CALCIUM GLUCONATE 1 GM/NS 50 ML RTU IV ONE (18:15)
[2019-05-25 19:08] LABS: ARTERIAL BLOOD BASE EXCESS -10.6 mmol/L; ARTERIAL BLOOD FIO2 40%; ARTERIAL BLOOD H2CO3 0.81 mmol/L (1.05-1.35); ARTERIAL BLOOD HCO3 13.8 mmol/L (20-24); ARTERIAL BLOOD O2 SATURATION 96.7 % (94-98); ARTERIAL BLOOD PCO2 26.9 mmHg (35-45); ARTERIAL BLOOD PH 7.33 (7.35-7.45); ARTERIAL BLOOD PO2 91.9 mmHg (80-100); ARTERIAL BLOOD TOTAL CO2 14.6 mmol/L (23-27)
[2019-05-25 19:15] LABS: BLOOD UREA NITROGEN 26 mg/dL (7-20); CARBON DIOXIDE 13 mmol/L (22-30); CHLORIDE 86 mmol/L (98-107); PHOSPHORUS 5.9 mg/dL (2.5-4.5); POTASSIUM 4.9 mmol/L (3.6-5.0)
--- NOTE | 2019-05-25 19:27 | PDOC CONSULTATION ---
Consultation Consult Date: 05/25/19 Provider Consulted: SUSANNE SALVADOR Consult reason:: SUMAN, Severe acidosis, Anuria History of Present Illness Admission Date/PCP: 05/24/19 18:42 History of Present Illness: MEHRDAD HERMOSILLO II is a 48 year old male with unknown past medical history who presented to the emergency room yesterday with abdominal pain. History is just obtained from emergency room record as the patient is currently intubated and sedated and no one else can provide a history. ER notes indicated that the patient vomited 5 times after eating [place] food. There was also history of no urine output for 2 days. EMS found the patient to be very hypotensive, tachycardic, pale and clammy. There was a note that the patient does drink beer daily. In the emergency room patient was very hypotensive for prolonged period of time as low as blood pressure of 52/31. At one point his temperature was 94. He was also very tachycardic with heart rate into the 140s initially. He was then given fluid resuscitation of about 5 L but did nothing with the patient's blood pressure. He was started on vasopressors with norepinephrine and epinephrine initially. No urine output was noted. Patient has had multiple radiographic studies. Significantly patient had a CTA of the chest with c ontrast showing no pulmonary emboli with some fluid in the interstitium. A CT of the abdomen concomitantly done with contrast showed the kidneys have no masses nor hydronephrosis, note of fatty liver with diffuse heterogeneous pattern, note of fluid around the pancreas, findings likely could be related to pancreatitis or cirrhosis. Chest x-ray showed increased bilateral opacities but normal vasculature. Today the patient had another chest x-ray which showed the lungs are clear without pulmonary vascular congestion. Abdominal ultrasound showed normal size kidneys with right kidney of 12.3 cm and left kidney of 10.7 cm without any hydronephrosis. Currently the patient is admitted in the ICU and is on 3 vasopressors when I saw him including vasopressin, Thomas-Synephrine and Levoped with persistent low blood pressure with systolic blood pressure into the 70s and 80s this palpable dose pressors. Patient was also noted to have metabolic acidosis and is currently on sodium bicarbonate drip. His initial bicarbonate was 15. He also came in with BUN of 12 and creatinine of 1.27 and the most recent labs today showed a BUN of 24, and creatinine of 2.85. His bicarbonate continues to be low at 13. His sodium was also low with initial level of 130.9 and currently at 118.7. His initial serum osmolality was 292 and negative a small gap. Alcohol level is 158. Ethylene glycol was also was sent but pending. His serum osmolality has progressively decreased for the past 24 hours. He is HIV negative. He is severely hypocalcemic as well. His lipase is markedly elevated consistent with pancreatitis. Of note there was a report of a brief cardiac arrest in the emergency room. Past Medical History Cardiac Medical History: Reports: Hyperlipidemia Past Surgical History Past Surgical Note: Unable to get surgical history due to the patient being intubated and sedated.. Past Surgical History: Reports: None Social History Smoking Status: Unknown if Ever Smoked Electronic Cigarette use?: No Past Social History Note: Due to patient being intubated, personal social history cannot be confirmed. However EMS has gotten the information that he drinks beer daily. - Advance Directive Resuscitation Status: Full Code Family History Family History: Could not be obtained at this time due to patient being intubated. Parental Family History Reviewed: No Children Family History Reviewed: Unknown Sibling(s) Family History Reviewed.: Unknown Medication/Allergy Home Medications: Unobtainable 05/25/19 Allergies/Adverse Reactions: No Known Allergies Allergy (Verified 05/24/19 10:50) Review of Systems ROS unobtainable: Due to endotracheal tube, Due to mental status Physical Exam Vital Signs: Temp Pulse Resp BP Pulse Ox 100.0 F 28 L 25 H 84/72 L 98 05/25/19 08:00 05/24/19 21:15 05/25/19 10:11 05/25/19 10:11 05/25/19 10:10 Intake & Output 05/24/19 05/25/19 05/26/19 06:59 06:59 06:59 Intake Total 4674 567.2 Output Total 236 125 Balance 4438 442.2 Weight 74.6 kg Exam: General appearance: Intubated and sedated who looks older than his age Head exam: PRESENT: atraumatic, normocephalic Eye exam: PRESENT: Eyes are closed Mouth exam: PRESENT: ET tube in place Neck exam: PRESENT: full ROM. ABSENT: carotid bruit, JVD, lymphadenopathy, thyromegaly Respiratory exam: PRESENT: clear to auscultation bilaterally. ABSENT: rales, rhonchi, stridor, wheezes Cardiovascular exam: PRESENT: RRR, +S1, +S2. ABSENT: systolic murmur Pulses: PRESENT: normal radial pulses, normal dorsalis pedis pulses GI/Abdominal exam: PRESENT: normal bowel sounds, firm and mildly distended ABSENT: guarding, mass, tenderness Rectal exam: Deferred Extremities exam: PRESENT: full ROM. ABSENT: calf tenderness, pedal edema Musculoskeletal: PRESENT: full ROM. ABSENT: deformity Neurological exam: PRESENT: Sedated Psychiatric exam: PRESENT: Cannot be assessed at this time Skin exam: PRESENT: intact, dry, cool to touch and pale. ABSENT: rash Results Laboratory Results: 05/25/19 05:43 05/25/19 05:43 05/24/19 05/24/19 05/24/19 11:08 11:08 11:08 WBC RBC Hgb Hct MCV MCH MCHC RDW Plt Count Seg Neutrophils % Carbonic Acid HCO3/H2CO3 Ratio ABG pH ABG pCO2 ABG pO2 ABG HCO3 ABG O2 Saturation ABG Base Excess FiO2 Sodium Potassium Chloride Carbon Dioxide Anion Gap BUN Creatinine Est GFR ( Amer) Glucose Serum Osmolality Lactic Acid Calcium Phosphorus 5.4 H Magnesium 1.2 L* Ferritin Total Bilirubin AST Alkaline Phosphatase Ammonia C-Reactive Protein Total Protein Albumin Triglycerides 166 H Cholesterol 275.65 H LDL Cholesterol Direct 202 H VLDL Cholesterol 33.2 H HDL Cholesterol 51 Amylase Lipase TSH 4.61 Urine Color Urine Appearance Urine pH Ur Specific [place] Urine Protein Urine Glucose (UA) Urine Ketones Urine Blood Urine Nitrite Ur Leukocyte Esterase Urine WBC (Auto) Urine RBC (Auto) Urine Osmolality 05/24/19 05/24/19 05/24/19 14:03 14:03 14:03 WBC RBC Hgb Hct MCV MCH MCHC RDW Plt Count Seg Neutrophils % Carbonic Acid HCO3/H2CO3 Ratio ABG pH ABG pCO2 ABG pO2 ABG HCO3 ABG O2 Saturation ABG Base Excess FiO2 Sodium Potassium Chloride Carbon Dioxide Anion Gap BUN Creatinine Est GFR ( Amer) Glucose Serum Osmolality Lactic Acid Calcium Phosphorus Magnesium Ferritin Total Bilirubin AST Alkaline Phosphatase Ammonia C-Reactive Protein Total Protein Albumin Triglycerides Cholesterol LDL Cholesterol Direct VLDL Cholesterol HDL Cholesterol Amylase Lipase TSH Urine Color FADI Cancelled Urine Appearance TURBID Cancelled Urine pH 5.0 Cancelled Ur Specific [place] 1.018 Cancelled Urine Protein 100 H Cancelled Urine Glucose (UA) 50 H Cancelled Urine Ketones TRACE H Cancelled Urine Blood LARGE H Cancelled Urine Nitrite NEGATIVE Cancelled Ur Leukocyte Esterase NEGATIVE Cancelled Urine WBC (Auto) 1 Cancelled Urine RBC (Auto) 1 Cancelled Urine Osmolality Cancelled 05/24/19 05/24/19 05/24/19 15:29 15:34 16:45 WBC RBC Hgb Hct MCV MCH MCHC RDW Plt Count Seg Neutrophils % Carbonic Acid HCO3/H2CO3 Ratio ABG pH ABG pCO2 ABG pO2 ABG HCO3 ABG O2 Saturation ABG Base Excess FiO2 Sodium Potassium Chloride Carbon Dioxide Anion Gap BUN Creatinine Est GFR ( Amer) Glucose Serum Osmolality Lactic Acid 13.1 H Calcium Phosphorus Magnesium Ferritin Total Bilirubin AST Alkaline Phosphatase Ammonia 17.6 C-Reactive Protein Total Protein Albumin Triglycerides Cholesterol LDL Cholesterol Direct VLDL Cholesterol HDL Cholesterol Amylase Lipase 33765.6 H TSH Urine Color Urine Appearance Urine pH Ur Specific [place] Urine Protein Urine Glucose (UA) Urine Ketones Urine Blood Urine Nitrite Ur Leukocyte Esterase Urine WBC (Auto) Urine RBC (Auto) Urine Osmolality 05/24/19 05/24/19 05/24/19 21:00 21:00 21:00 WBC RBC Hgb Hct MCV MCH MCHC RDW Plt Count Seg Neutrophils % Carbonic Acid HCO3/H2CO3 Ratio ABG pH ABG pCO2 ABG pO2 ABG HCO3 ABG O2 Saturation ABG Base Excess FiO2 Sodium Potassium Chloride Carbon Dioxide Anion Gap BUN Creatinine Est GFR ( Amer) Glucose Serum Osmolality 292 Lactic Acid Calcium Phosphorus Magnesium Ferritin 1020.00 H Total Bilirubin AST Alkaline Phosphatase Ammonia C-Reactive Protein 46.8 H Total Protein Albumin Triglycerides 133 Cholesterol LDL Cholesterol Direct VLDL Cholesterol HDL Cholesterol Amylase 2322 H Lipase TSH Urine Color Urine Appearance Urine pH Ur Specific [place] Urine Protein Urine Glucose (UA) Urine Ketones Urine Blood Urine Nitrite Ur Leukocyte Esterase Urine WBC (Auto) Urine RBC (Auto) Urine Osmolality 05/24/19 05/25/19 05/25/19 21:32 01:23 05:08 WBC RBC Hgb Hct MCV MCH MCHC RDW Plt Count Seg Neutrophils % Carbonic Acid 0.91 L HCO3/H2CO3 Ratio 13:1 ABG pH 7.24 L ABG pCO2 30.2 L ABG pO2 83.3 ABG HCO3 12.6 L ABG O2 Saturation 94.6 ABG Base Excess -13.5 FiO2 40% Sodium 126.2 L Potassium 3.8 Chloride 95 L Carbon Dioxide 14 L Anion Gap 17 BUN 20 Creatinine 2.12 H Est GFR ( Amer) 40 L Glucose 240 H Serum Osmolality Lactic Acid Calcium 6.3 L* Phosphorus Magnesium 2.5 H D Ferritin Total Bilirubin AST Alkaline Phosphatase Ammonia C-Reactive Protein Total Protein Albumin Triglycerides Cholesterol LDL Cholesterol Direct VLDL Cholesterol HDL Cholesterol Amylase Lipase TSH Urine Color Urine Appearance Urine pH Ur Specific [place] Urine Protein Urine Glucose (UA) Urine Ketones Urine Blood Urine Nitrite Ur Leukocyte Esterase Urine WBC (Auto) Urine RBC (Auto) Urine Osmolality 293 L 05/25/19 05/25/19 05/25/19 05:43 05:43 05:43 WBC 12.7 H RBC 3.68 L Hgb 12.8 L D Hct 37.5 L MCV 102 H MCH 34.7 H MCHC 34.0 RDW 12.7 Plt Count 55 L Seg Neutrophils % Not Reportable Carbonic Acid HCO3/H2CO3 Ratio ABG pH ABG pCO2 ABG pO2 ABG HCO3 ABG O2 Saturation ABG Base Excess FiO2 Sodium 123.8 L Potassium 4.1 Chloride 94 L Carbon Dioxide 14 L Anion Gap 16 BUN 21 H Creatinine 2.51 H Est GFR ( Amer) 33 L Glucose 301 H Serum Osmolality Lactic Acid Calcium 6.1 L* Phosphorus 4.6 H Magnesium 2.1 Ferritin Total Bilirubin 4.0 H AST 175 H Alkaline Phosphatase 58 Ammonia 15.5 C-Reactive Protein Total Protein 4.5 L Albumin 2.2 L Triglycerides 222 H Cholesterol 171.10 LDL Cholesterol Direct 93 VLDL Cholesterol 44.4 H HDL Cholesterol 29 L Amylase 2112 H Lipase 82274.9 H TSH Urine Color Urine Appearance Urine pH Ur Specific [place] Urine Protein Urine Glucose (UA) Urine Ketones Urine Blood Urine Nitrite Ur Leukocyte Esterase Urine WBC (Auto) Urine RBC (Auto) Urine Osmolality 05/25/19 09:40 WBC RBC Hgb Hct MCV MCH MCHC RDW Plt Count Seg Neutrophils % Carbonic Acid 0.88 L HCO3/H2CO3 Ratio 16:1 ABG pH 7.31 L ABG pCO2 29.4 L ABG pO2 43.7 L ABG HCO3 14.6 L ABG O2 Saturation 76.4 L ABG Base Excess -10.2 FiO2 40% Sodium Potassium Chloride Carbon Dioxide Anion Gap BUN Creatinine Est GFR ( Amer) Glucose Serum Osmolality Lactic Acid Calcium Phosphorus Magnesium Ferritin Total Bilirubin AST Alkaline Phosphatase Ammonia C-Reactive Protein Total Protein Albumin Triglycerides Cholesterol LDL Cholesterol Direct VLDL Cholesterol HDL Cholesterol Amylase Lipase TSH Urine Color Urine Appearance Urine pH Ur Specific [place] Urine Protein Urine Glucose (UA) Urine Ketones Urine Blood Urine Nitrite Ur Leukocyte Esterase Urine WBC (Auto) Urine RBC (Auto) Urine Osmolality 05/24/19 05/24/19 05/24/19 11:08 11:08 21:00 Creatine Kinase CK-MB (CK-2) 3.19 Troponin I 0.013 0.056 NT-Pro-B Natriuret Pep 109 05/24/19 05/25/19 05/25/19 21:00 04:07 09:40 Creatine Kinase 403 H CK-MB (CK-2) Troponin I 0.106 0.122 NT-Pro-B Natriuret Pep Impressions: Abdomen/Pelvis CT 05/24/19 00:00 IMPRESSION: Marked fatty liver with a diffuse heterogeneous pattern to the liver but no focal masses. Extensive fluid around the pancreas and extending along the gutters and into the abdomen pelvis. Fluid around the liver and spleen. These findings related either to cirrhosis or pancreatitis. No contrast seen in the ureters on delayed imaging. Question early phase of imaging versus renal tubular dysfunction. Acute Abdomen Series 05/24/19 10:49 IMPRESSION: NO RADIOGRAPHIC EVIDENCE FOR ACUTE ABDOMINAL DISEASE. Head CT 05/24/19 13:32 IMPRESSION: NORMAL BRAIN CT WITHOUT CONTRAST. EVIDENCE OF ACUTE STROKE: NO. Chest/Abdomen CTA 05/24/19 14:09 IMPRESSION: No pulmonary emboli. Fluid in the interstitium of the lungs with basilar opacities and small effusions. Chest X-Ray 05/25/19 06:00 IMPRESSION: Advancement of the ET tube which is in good position with otherwise no significant change. Assessment & Plan - Diagnosis (1) Refractory shock Is this a current diagnosis for this admission?: Yes Plan: Patient appears to have initially hypovolemic shock but there is high likelihood that he could have septic shock as well as he did not respond well to fluid resuscitation. Currently on multiple vasopressors. He was initially given Primaxin and currently on meropenem, micafungin and vancomycin just started. 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 (2) Acute kidney injury (SUMAN) with acute tubular necrosis (ATN) Is this a current diagnosis for this admission?: Yes Plan: Patient is currently oligo- anuric. Patient has a rapidly progressing kidney injury secondary to refractory shock with hypotension and contribution of IV contrast given for imaging studies on admission. Although the patient does not require emergent renal replacement therapy at this time, I think he will require renal replacement therapy in the next 24 to 72 hours. Given that the patient has refractory shock and is very hypotensive, the only form of renal replacement therapy that we can do is continuous renal replacement therapy which is currently unavailable in this facility. I spoke to Dr. Vera about this and encouraged him to arrange for possible transfer to a tertiary care sooner than later. I do not think we can offer much in this facility for his AK I at this point. (3) Pancreatitis, alcoholic, acute Is this a current diagnosis for this admission?: Yes (4) Metabolic acidosis Is this a current diagnosis for this admission?: Yes Plan: Multifactorial causes including possible septic shock and SUMAN. I doubt toxic alcohol ingestion at this time. (5) Lactic acidosis Is this a current diagnosis for this admission?: Yes (6) Dehydration Is this a current diagnosis for this admission?: Yes (7) Hypotension Is this a current diagnosis for this admission?: Yes Plan: Refractory to fluids and pressors at this time. (8) Hyponatremia Is this a current diagnosis for this admission?: Yes Plan: Is most likely secondary to hypotonic fluids that are simultaneously being given to the patient at this point. Renal replacement therapy might help with volume control in this patient and may help with electrolyte abnormalities as well. If sodium level continues to go down he may need it hypertonic saline. (9) Hypocalcemia Is this a current diagnosis for this admission?: Yes Plan: This is most likely related to severe acute pancreatitis. Needs replacement. (10) Intractable nausea and vomiting Is this a current diagnosis for this admission?: Yes - Notes Notes: Discussed with Dr. Vera, [facility]. Patient's prognosis is poor. Needs aggressive and immediate management. Thank you very much for this consultation. - Time Time Spent: Greater than 70 Minutes
[2019-05-25 20:13] LABS: ANION GAP 18 (5-19)
[2019-05-25 20:16] LABS: CALCIUM 4.8 mg/dL (8.4-10.2); GLUCOSE 432 mg/dL (75-110)
[2019-05-25] MEDS ORDERED: THIAMINE HCL INJ 200 MG/2 ML VIAL IV SCH (22:00)
[2019-05-25] MEDS: CALCIUM GLUC IN NACL, ISO-OSM 1 GM/50 ML RTUPB IV SCH ×3 (22:08→23:36)
[2019-05-25 22:46] LABS: ARTERIAL BLOOD BASE EXCESS -10.4 mmol/L; ARTERIAL BLOOD H2CO3 0.82 mmol/L (1.05-1.35); ARTERIAL BLOOD O2 SATURATION 96.5 % (94-98); ARTERIAL BLOOD PCO2 27.1 mmHg (35-45); ARTERIAL BLOOD PH 7.33 (7.35-7.45); ARTERIAL BLOOD PO2 89.6 mmHg (80-100); ARTERIAL BLOOD TOTAL CO2 14.9 mmol/L (23-27)
[2019-05-25 22:49] LABS: ARTERIAL BLOOD FIO2 40%
[2019-05-25 23:12] LABS: BLOOD UREA NITROGEN 27 mg/dL (7-20); CARBON DIOXIDE 14 mmol/L (22-30); CHLORIDE 84 mmol/L (98-107); PHOSPHORUS 5.5 mg/dL (2.5-4.5); POTASSIUM 4.5 mmol/L (3.6-5.0)
[2019-05-25 23:17] LABS: ANION GAP 19 (5-19)
[2019-05-25 23:21] LABS: GLUCOSE 416 mg/dL (75-110)
[2019-05-25 23:23] LABS: CALCIUM 5.2 mg/dL (8.4-10.2)
[2019-05-26] MEDS ORDERED: CALCIUM GLUC IN NACL, ISO-OSM 1 GM/50 ML RTUPB IV ONE ×2 (00:22→06:41)
[2019-05-26] MEDS: CALCIUM GLUC IN NACL, ISO-OSM 1 GM/50 ML RTUPB IV SCH ×9 (01:00→21:54)
[2019-05-26] MEDS: NORMAL SALINE IV SCH ×2 (02:40→09:07)
[2019-05-26] MEDS: FOLIC ACID IV SCH ×2 (02:40→09:07)
[2019-05-26] MEDS: DEXTROSE 5%-WATER 250 ML with NOREPINEPHRINE BITARTRATE 4 MG IV PRN ×4 (02:40→06:18)
[2019-05-26 02:49] LABS: ARTERIAL BLOOD BASE EXCESS -7.8 mmol/L; ARTERIAL BLOOD H2CO3 0.78 mmol/L (1.05-1.35); ARTERIAL BLOOD HCO3 15.5 mmol/L (20-24); ARTERIAL BLOOD O2 SATURATION 96.4 % (94-98); ARTERIAL BLOOD PCO2 25.9 mmHg (35-45); ARTERIAL BLOOD PO2 83.1 mmHg (80-100); ARTERIAL BLOOD TOTAL CO2 16.3 mmol/L (23-27)
[2019-05-26 02:51] LABS: ARTERIAL BLOOD FIO2 35%
[2019-05-26] MEDS ORDERED: INSULIN REG, HUMAN 100 UNIT/ML 3 ML VIAL (PYX) ONE (02:56)
[2019-05-26] MEDS: NORMAL SALINE 100 ML with INSULIN REGULAR, HUMAN 100 UNIT IV PRN ×6 (03:00→16:00)
[2019-05-26 03:09] LABS: ANION GAP 15 (5-19); BLOOD UREA NITROGEN 28 mg/dL (7-20); CARBON DIOXIDE 18 mmol/L (22-30); CHLORIDE 85 mmol/L (98-107); GLUCOSE 334 mg/dL (75-110); PHOSPHORUS 5.2 mg/dL (2.5-4.5); POTASSIUM 4.2 mmol/L (3.6-5.0)
[2019-05-26 03:24] LABS: CALCIUM 5.4 mg/dL (8.4-10.2)
[2019-05-26] MEDS ORDERED: NORMAL SALINE 1000 ML 500 ML IV ONE (04:01)
[2019-05-26] MEDS ORDERED: MAGNESIUM SULFATE/D5W 1 GM/100 ML RTUPB IV ONE (04:04)
[2019-05-26] MEDS: MAGNESIUM SULFATE/D5W 1 GM/100 ML RTUPB IV SCH ×3 (04:14→06:19)
[2019-05-26] MEDS: MIDAZOLAM HCL 50 MG/100 ML RTUINJ IV PRN (04:38)
[2019-05-26] MEDS: DEXTROSE 5%-WATER 250 ML with PHENYLEPHRINE HCL 40 MG IV PRN ×2 (04:57)
[2019-05-26] MEDS: HYDROCORTISONE SOD SUCCINATE INJ/PF 100 MG/2 ML SDV IV SCH ×3 (05:18→21:07)
[2019-05-26] MEDS: MINERAL OIL/PETROLATUM,WHITE OPH OINT 3.5 GM OU SCH ×3 (05:19→21:09)
[2019-05-26 06:12] LABS: ARTERIAL BLOOD BASE EXCESS -6.9 mmol/L; ARTERIAL BLOOD H2CO3 0.79 mmol/L (1.05-1.35); ARTERIAL BLOOD O2 SATURATION 95.4 % (94-98); ARTERIAL BLOOD PCO2 26.2 mmHg (35-45); ARTERIAL BLOOD PO2 75.4 mmHg (80-100); ARTERIAL BLOOD TOTAL CO2 16.8 mmol/L (23-27)
[2019-05-26 06:14] LABS: ARTERIAL BLOOD FIO2 35%
[2019-05-26 06:23] LABS: HEMATOCRIT 33.3 % (37.9-51.0); HEMOGLOBIN 11.4 g/dL (13.5-17.0); MEAN CORPUSCULAR HEMOGLOBIN 34.6 pg (27.0-33.4); MEAN CORPUSCULAR HGB CONC 34.1 g/dL (32.0-36.0); MEAN CORPUSCULAR VOLUME 101 fl (80-97); RED BLOOD COUNT 3.29 10^6/uL (4.35-5.55); RED CELL DISTRIBUTION WIDTH 12.8 % (11.5-14.0); WHITE BLOOD COUNT 18.6 10^3/uL (4.0-10.5)
[2019-05-26 06:28] LABS: ANION GAP 16 (5-19); BLOOD UREA NITROGEN 29 mg/dL (7-20); CARBON DIOXIDE 17 mmol/L (22-30); CHLORIDE 84 mmol/L (98-107); GLUCOSE 288 mg/dL (75-110); POTASSIUM 3.8 mmol/L (3.6-5.0)
[2019-05-26 06:47] LABS: CALCIUM 4.8 mg/dL (8.4-10.2)
[2019-05-26 06:49] LABS: INTERNATIONAL RATION (INR) 2.01; PROTHROMBIN TIME 23.1 SEC (11.4-15.4)
[2019-05-26 06:50] LABS: PARTIAL THROMBOPLASTIN TIME 62.9 SEC (23.5-35.8)
--- NOTE | 2019-05-26 06:51 | RADIOLOGY REPORT (SQ) ---
CLINICAL HISTORY: respiratory failure COMPARISON: 05/25/2019. TECHNIQUE: XR CHEST 1 VIEW 05/26/2019 6:00 AM CDT FINDINGS: Cardiac silhouette is normal in size. Lungs are clear without consolidation, atelectasis, mass or edema. There are small pleural effusions. There is no pneumothorax. There are no acute osseous findings. Endotracheal tube has been slightly advanced into the lower third of the trachea. NG tube is unchanged as is the right central line there is bibasilar airspace disease. IMPRESSION: Developing pleural effusions with bibasilar airspace disease.
[2019-05-26 06:57] LABS: URINE CREATININE 38.7 mg/dL (22-328)
[2019-05-26 06:58] LABS: PLATELET COUNT 36 10^3/uL (150-450)
[2019-05-26 06:59] LABS: PHOSPHORUS 4.6 mg/dL (2.5-4.5)
[2019-05-26 07:07] LABS: ABSOLUTE LYMPHOCYTES# (MANUAL) 1.3 10^3/uL (0.5-4.7); ABSOLUTE MONOCYTES # (MANUAL) 4.5 10^3/uL (0.1-1.4); BAND NEUTROPHILS % (MANUAL) 18 % (3-5); BASOPHILS % (MANUAL) 0 % (0-2); EOSINOPHILS % (MANUAL) 1 % (0-6); LYMPHOCYTES % (MANUAL) 7 % (13-45); MONOCYTES % (MANUAL) 24 % (3-13); PLATELET COMMENT DECREASED; SEGMENTED NEUTROPHILS % (MAN) 50 % (42-78); TOTAL CELLS COUNTED 100
[2019-05-26 08:22] LABS: ARTERIAL BLOOD BASE EXCESS -5.8 mmol/L; ARTERIAL BLOOD H2CO3 0.85 mmol/L (1.05-1.35); ARTERIAL BLOOD HCO3 17.6 mmol/L (20-24); ARTERIAL BLOOD O2 SATURATION 95.3 % (94-98); ARTERIAL BLOOD PCO2 28.2 mmHg (35-45); ARTERIAL BLOOD PH 7.41 (7.35-7.45); ARTERIAL BLOOD PO2 73.9 mmHg (80-100); ARTERIAL BLOOD TOTAL CO2 18.4 mmol/L (23-27)
[2019-05-26 08:24] LABS: ARTERIAL BLOOD FIO2 35%
[2019-05-26 08:30] LABS: ANION GAP 15 (5-19); BLOOD UREA NITROGEN 31 mg/dL (7-20); CARBON DIOXIDE 17 mmol/L (22-30); CHLORIDE 84 mmol/L (98-107); GLUCOSE 252 mg/dL (75-110); PHOSPHORUS 4.8 mg/dL (2.5-4.5)
[2019-05-26 08:46] LABS: CALCIUM 5.1 mg/dL (8.4-10.2)
[2019-05-26] MEDS: PANTOPRAZOLE SODIUM 40 MG VIAL IV SCH ×2 (09:02→14:12)
[2019-05-26] MEDS: MEROPENEM 1 GM in NORMAL SALINE 50 ML IV SCH ×2 (09:03→21:53)
[2019-05-26] MEDS: THIAMINE HCL 250 MG in NORMAL SALINE 50 ML IV SCH ×2 (09:47→22:29)
[2019-05-26] MEDS: DEXTROSE 5% IV PRN ×2 (10:30)
[2019-05-26] MEDS: SODIUM BICARBONATE IV PRN ×6 (10:30→21:26)
[2019-05-26] MEDS: WATER IV PRN ×2 (10:30)
[2019-05-26] MEDS: HYDROMORPHONE HCL 30 MG/60 ML RTUINJ IV PRN (10:34)
[2019-05-26] MEDS: MICAFUNGIN SODIUM 100 MG in NORMAL SALINE 100 ML IV SCH (11:04)
--- NOTE | 2019-05-26 11:13 | PDOC PROGRESS REPORT ---
Subjective Progress Note for:: 05/26/19 Subjective:: Patient remains intubated, sedated and on 3 vasopressors. His blood pressure seems a little bit better with systolic blood pressure on the 80s and 90s. He made about 343 mL only of urine output yesterday. His intake and output balance since admission is +10+ liters. He continues to have multiple electrolyte abnormalities. Reason For Visit: CARDIAC ARREST METABOLIC ACIDOSIS Physical Exam Vital Signs: Temp Pulse Resp BP Pulse Ox 98.8 F 119 H 20 90/55 L 94 05/26/19 05:38 05/25/19 20:14 05/26/19 10:00 05/26/19 09:12 05/26/19 10:00 Intake & Output 05/25/19 05/26/19 05/27/19 06:59 06:59 06:59 Intake Total 4816 6653.7 1195 Output Total 236 443 60 Balance 4580 6210.7 1135 Weight 74.6 kg 80.9 kg Exam: General appearance: [PRESENT: Intubated and sedated] Head exam: [PRESENT: atraumatic, normocephalic] Eye exam: [PRESENT: Eyes are closed] Neck exam: [ABSENT: JVD] Respiratory exam: [PRESENT: Normal breath sounds. ABSENT: crackles, rales, rhonchi, unlabored, wheezes] Cardiovascular exam: [PRESENT: Regular rate rhythm -+S1, +S2. Tachycardic ABSENT: diastolic murmur, systolic murmur] GI/Abdominal exam: [PRESENT: normal bowel sounds, firm. ABSENT: guarding, mass, tenderness] Extremities exam: [ABSENT: No edema] Neurological exam: [PRESENT: Sedated] Skin exam: [PRESENT: dry, warm, pale] Results Laboratory Results: 05/26/19 05:50 05/26/19 08:00 05/25/19 05/25/19 05/25/19 09:40 12:35 14:00 WBC RBC Hgb Hct MCV MCH MCHC RDW Plt Count Seg Neutrophils % Carbonic Acid 0.88 L HCO3/H2CO3 Ratio 16:1 ABG pH 7.31 L ABG pCO2 29.4 L ABG pO2 43.7 L ABG HCO3 14.6 L ABG O2 Saturation 76.4 L ABG Base Excess -10.2 FiO2 40% Sodium 118.7 L* Potassium 4.9 Chloride 89 L Carbon Dioxide 13 L Anion Gap 17 BUN 24 H Creatinine 2.85 H Est GFR ( Amer) 29 L Glucose 403 H* Serum Osmolality Lactic Acid 9.2 H Calcium 5.2 L* Ionized Calcium Naomie Phosphorus Magnesium Ferritin 1170.00 H Total Bilirubin 4.5 H AST 164 H Alkaline Phosphatase 61 Ammonia C-Reactive Protein 166.1 H Total Protein 4.6 L Albumin 2.2 L Amylase Lipase 05/25/19 05/25/19 05/25/19 14:00 14:03 14:15 WBC RBC Hgb Hct MCV MCH MCHC RDW Plt Count Seg Neutrophils % Carbonic Acid 0.70 L HCO3/H2CO3 Ratio 17:1 ABG pH 7.35 ABG pCO2 23.1 L ABG pO2 90.1 ABG HCO3 12.4 L ABG O2 Saturation 96.7 ABG Base Excess -11.3 FiO2 ROOM AIR Sodium Potassium Chloride Carbon Dioxide Anion Gap BUN Creatinine Est GFR ( Amer) Glucose Serum Osmolality 274 L Lactic Acid Calcium Ionized Calcium Naomie Phosphorus Magnesium 1.9 Ferritin Total Bilirubin AST Alkaline Phosphatase Ammonia C-Reactive Protein Total Protein Albumin Amylase Lipase 05/25/19 05/25/19 05/25/19 18:10 18:10 20:35 WBC RBC Hgb Hct MCV MCH MCHC RDW Plt Count Seg Neutrophils % Carbonic Acid 0.81 L HCO3/H2CO3 Ratio 17:1 ABG pH 7.33 L ABG pCO2 26.9 L ABG pO2 91.9 ABG HCO3 13.8 L ABG O2 Saturation 96.7 ABG Base Excess -10.6 FiO2 40% Sodium 117.4 L* Potassium 4.9 Chloride 86 L Carbon Dioxide 13 L Anion Gap 18 BUN 26 H Creatinine 2.64 H Est GFR ( Amer) 31 L Glucose 432 H* Serum Osmolality Lactic Acid Calcium 4.8 L* Ionized Calcium Naomie 0.70 L Phosphorus 5.9 H Magnesium 1.7 Ferritin Total Bilirubin AST Alkaline Phosphatase Ammonia C-Reactive Protein Total Protein Albumin Amylase Lipase 05/25/19 05/25/19 05/26/19 22:35 22:35 02:32 WBC RBC Hgb Hct MCV MCH MCHC RDW Plt Count Seg Neutrophils % Carbonic Acid 0.82 L 0.78 L HCO3/H2CO3 Ratio 17:1 19:1 ABG pH 7.33 L 7.40 ABG pCO2 27.1 L 25.9 L ABG pO2 89.6 83.1 ABG HCO3 14.0 L 15.5 L ABG O2 Saturation 96.5 96.4 ABG Base Excess -10.4 -7.8 FiO2 40% 35% Sodium 117.4 L* Potassium 4.5 Chloride 84 L Carbon Dioxide 14 L Anion Gap 19 BUN 27 H Creatinine 3.25 H Est GFR ( Amer) 25 L Glucose 416 H* Serum Osmolality Lactic Acid Calcium 5.2 L* Ionized Calcium Naomie Phosphorus 5.5 H Magnesium 1.5 L Ferritin Total Bilirubin AST Alkaline Phosphatase Ammonia C-Reactive Protein Total Protein Albumin Amylase Lipase 05/26/19 05/26/19 05/26/19 02:32 05:50 05:50 WBC RBC Hgb Hct MCV MCH MCHC RDW Plt Count Seg Neutrophils % Carbonic Acid 0.79 L HCO3/H2CO3 Ratio 20:1 ABG pH 7.40 ABG pCO2 26.2 L ABG pO2 75.4 L ABG HCO3 16.0 L ABG O2 Saturation 95.4 ABG Base Excess -6.9 FiO2 35% Sodium 118.1 L* 117.4 L* Potassium 4.2 3.8 Chloride 85 L 84 L Carbon Dioxide 18 L 17 L Anion Gap 15 16 BUN 28 H 29 H Creatinine 3.45 H 3.41 H Est GFR ( Amer) 23 L 23 L Glucose 334 H 288 H Serum Osmolality Lactic Acid Calcium 5.4 L* 4.8 L* Ionized Calcium Naomie 0.75 L Phosphorus 5.2 H Magnesium 1.5 L 2.2 Ferritin Total Bilirubin AST Alkaline Phosphatase Ammonia C-Reactive Protein Total Protein Albumin Amylase Lipase 6464.3 H 05/26/19 05/26/19 05/26/19 05:50 05:50 06:12 WBC 18.6 H RBC 3.29 L Hgb 11.4 L Hct 33.3 L MCV 101 H MCH 34.6 H MCHC 34.1 RDW 12.8 Plt Count 36 L Seg Neutrophils % Not Reportable Carbonic Acid HCO3/H2CO3 Ratio ABG pH ABG pCO2 ABG pO2 ABG HCO3 ABG O2 Saturation ABG Base Excess FiO2 Sodium Potassium Chloride Carbon Dioxide Anion Gap BUN Creatinine Est GFR ( Amer) Glucose Serum Osmolality Lactic Acid 6.2 H Calcium Ionized Calcium Naomie 0.75 L Phosphorus Magnesium Ferritin Total Bilirubin AST Alkaline Phosphatase Ammonia C-Reactive Protein Total Protein Albumin Amylase Lipase 05/26/19 05/26/19 05/26/19 06:25 06:25 08:00 WBC RBC Hgb Hct MCV MCH MCHC RDW Plt Count Seg Neutrophils % Carbonic Acid HCO3/H2CO3 Ratio ABG pH ABG pCO2 ABG pO2 ABG HCO3 ABG O2 Saturation ABG Base Excess FiO2 Sodium 116.2 L* Potassium 4.0 Chloride 84 L Carbon Dioxide 17 L Anion Gap 15 BUN 31 H Creatinine 3.14 H Est GFR ( Amer) 26 L Glucose 252 H Serum Osmolality Lactic Acid Calcium 5.1 L* Ionized Calcium Naomie Phosphorus 4.6 H 4.8 H Magnesium 2.1 Ferritin Total Bilirubin AST Alkaline Phosphatase Ammonia 13.9 C-Reactive Protein Total Protein Albumin Amylase 762 H Lipase 05/26/19 08:00 WBC RBC Hgb Hct MCV MCH MCHC RDW Plt Count Seg Neutrophils % Carbonic Acid 0.85 L HCO3/H2CO3 Ratio 20:1 ABG pH 7.41 ABG pCO2 28.2 L ABG pO2 73.9 L ABG HCO3 17.6 L ABG O2 Saturation 95.3 ABG Base Excess -5.8 FiO2 35% Sodium Potassium Chloride Carbon Dioxide Anion Gap BUN Creatinine Est GFR ( Amer) Glucose Serum Osmolality Lactic Acid Calcium Ionized Calcium Naomie Phosphorus Magnesium Ferritin Total Bilirubin AST Alkaline Phosphatase Ammonia C-Reactive Protein Total Protein Albumin Amylase Lipase 05/24/19 05/24/19 05/24/19 11:08 11:08 21:00 Creatine Kinase CK-MB (CK-2) 3.19 Troponin I 0.013 0.056 NT-Pro-B Natriuret Pep 109 05/24/19 05/25/19 05/25/19 21:00 04:07 09:40 Creatine Kinase 403 H CK-MB (CK-2) Troponin I 0.106 0.122 NT-Pro-B Natriuret Pep Impressions: Abdomen/Pelvis CT 05/24/19 00:00 IMPRESSION: Marked fatty liver with a diffuse heterogeneous pattern to the liver but no focal masses. Extensive fluid around the pancreas and extending along the gutters and into the abdomen pelvis. Fluid around the liver and spleen. These findings related either to cirrhosis or pancreatitis. No contrast seen in the ureters on delayed imaging. Question early phase of imaging versus renal tubular dysfunction. Acute Abdomen Series 04/12/20 10:49 IMPRESSION: NO RADIOGRAPHIC EVIDENCE FOR ACUTE ABDOMINAL DISEASE. Head CT 05/24/19 13:32 IMPRESSION: NORMAL BRAIN CT WITHOUT CONTRAST. EVIDENCE OF ACUTE STROKE: NO. Chest/Abdomen CTA 05/24/19 14:09 IMPRESSION: No pulmonary emboli. Fluid in the interstitium of the lungs with basilar opacities and small effusions. Abdomen Ultrasound 05/25/19 00:00 IMPRESSION: 1. Limited ultrasound of the abdomen with non visualization of the pancreas, IVC, aorta and CBD due to overlying bowel. 2. Increased echogenicity of hepatic parenchyma consistent with diffuse hepatocellular disease (most commonly hepatic steatosis). 3. No hydronephrosis. 4. No splenomegaly. 5. Small amount of ascites. 6. Circumferential thickening of the gallbladder wall. Chest X-Ray 05/26/19 06:00 IMPRESSION: Developing pleural effusions with bibasilar airspace disease. Assessment & Plan - Diagnosis (1) Refractory shock Is this a current diagnosis for this admission?: Yes Plan: Patient remains to be on 3 vasopressors as above. He is also on antibiotics. Room Service Attendant managing. (2) Acute kidney injury (SUMAN) with acute tubular necrosis (ATN) Is this a current diagnosis for this admission?: Yes Plan: Remains to be oliguric. Kidney function is getting worse. No urgent need for renal replacement therapy at this time. Patient would still be a candidate for CRRT which is unavailable in our facility. If the patient's blood pressure improves by tomorrow and the patient's kidney function is not any better, who will consider doing a very cautious intermittent hemodialysis. I discussed this again with Dr. Vera. I will reevaluate tomorrow morning. (3) Pancreatitis, alcoholic, acute Is this a current diagnosis for this admission?: Yes Plan: Amylase and lipase levels are still elevated. (4) Metabolic acidosis Is this a current diagnosis for this admission?: Yes Plan: Slightly improved with ongoing bicarb drip. Agree with increasing the rate to 150 mL an hour. (5) Lactic acidosis Is this a current diagnosis for this admission?: Yes (6) Dehydration Is this a current diagnosis for this admission?: Yes Plan: Has been fluid resuscitated. (7) Hypotension Is this a current diagnosis for this admission?: Yes (8) Hyponatremia Is this a current diagnosis for this admission?: Yes Plan: Due to hypotonic fluids. Discussed with Dr. Vera to see if we can have his drips mixed in saline instead of D5 solutions. Hypertonic saline cautious infusion can help. (9) Hypocalcemia Is this a current diagnosis for this admission?: Yes Plan: On continuous replacements per legislative assistant. (10) Intractable nausea and vomiting Is this a current diagnosis for this admission?: Yes - Time Time with patient: 15-25 minutes
[2019-05-26 11:25] LABS: ARTERIAL BLOOD BASE EXCESS -4.7 mmol/L; ARTERIAL BLOOD H2CO3 0.83 mmol/L (1.05-1.35); ARTERIAL BLOOD HCO3 18.2 mmol/L (20-24); ARTERIAL BLOOD PCO2 27.6 mmHg (35-45); ARTERIAL BLOOD PH 7.44 (7.35-7.45); ARTERIAL BLOOD PO2 70.4 mmHg (80-100); ARTERIAL BLOOD TOTAL CO2 19.1 mmol/L (23-27)
[2019-05-26 11:30] LABS: ARTERIAL BLOOD FIO2 35%
[2019-05-26] MEDS ORDERED: NORMAL SALINE 250 ML with VASOPRESSIN 100 UNIT IV PRN ×2 (11:56)
[2019-05-26] MEDS ORDERED: VANCOMYCIN HCL 1,250 MG in DEXTROSE 5%-WATER 250 ML IV SCH (12:00)
[2019-05-26] MEDS: VANCOMYCIN HCL 750 MG in DEXTROSE 5%-WATER 250 ML IV SCH (12:31)
[2019-05-26] MEDS: NORMAL SALINE 250 ML with NOREPINEPHRINE BITARTRATE 4 MG IV PRN ×6 (13:20→20:34)
[2019-05-26] MEDS: WATER FOR INJECTION STERILE IV PRN ×4 (13:42→21:26)
[2019-05-26] MEDS: NORMAL SALINE 250 ML with PHENYLEPHRINE HCL 40 MG IV PRN ×4 (14:14→21:29)
[2019-05-26 14:26] LABS: ANION GAP 13 (5-19); BLOOD UREA NITROGEN 31 mg/dL (7-20); CARBON DIOXIDE 20 mmol/L (22-30); CHLORIDE 82 mmol/L (98-107); GLUCOSE 211 mg/dL (75-110); PHOSPHORUS 4.1 mg/dL (2.5-4.5); POTASSIUM 3.9 mmol/L (3.6-5.0)
[2019-05-26 14:51] LABS: CALCIUM 4.9 mg/dL (8.4-10.2)
[2019-05-26 15:27] LABS: ARTERIAL BLOOD BASE EXCESS -2.8 mmol/L; ARTERIAL BLOOD HCO3 20.2 mmol/L (20-24); ARTERIAL BLOOD O2 SATURATION 94.7 % (94-98); ARTERIAL BLOOD PCO2 29.9 mmHg (35-45); ARTERIAL BLOOD PH 7.45 (7.35-7.45); ARTERIAL BLOOD PO2 68.4 mmHg (80-100); ARTERIAL BLOOD TOTAL CO2 21.1 mmol/L (23-27)
[2019-05-26 15:28] LABS: ARTERIAL BLOOD FIO2 35%
[2019-05-26] MEDS: CLINDAMYCIN 900 MG/D5W RTU 900 MG/50 ML RTUPB IV SCH (15:41)
[2019-05-26] MEDS ORDERED: SODIUM CHLORIDE 3% 100 ML IV ONE (16:00)
--- NOTE | 2019-05-26 16:10 | PDOC CRITICAL CARE PROG REPORT ---
General Date:: 05/26/19 ICU Day:: 3 Ventilator Day:: 3 Hospital Day:: 3 Resuscitation Status: Full Code Medical Power of Shirt Turner: Mother Padilla Events in the past 12 to 24 Hours:: 05.26.2019: Patient is still vasopressor dependent but has had some reduction in dose. His creatinine has plateaued and is now decreasing. He does not appear to have an toxic alcohol process. Mother did disclose that he does drink a significant amount of alcohol in the form of beer. Cultures grew gram-positive cocci and he was started on clindamycin today as well. 05.25.2019: Patient admitted through the emergency room last night as noted by the H&P. During the initiation of chest x-ray after line placement he went into what appeared to be a cardiac arrest. This appeared to be related to an orthostatic process. He had transient CPR and he responded to epinephrine and intubation. He has been in refractory shock with multiple vasopressors. Epinephrine has been discontinued. As noted his amylase and lipase were extremely elevated. Notably, his osmole gap is 24 and we initiated treatment for toxic alcohol ingestion this morning. We have also notified poison control and awaiting their return phone call. Review of systems relevant to events:: 05.26.2019: Of note his calcium has been extremely low and has to be replaced multiple times. His sodium is also low. FeNa yesterday was 3% suggestive of intrinsic renal disease today 7%. Notably he has a significant monocytosis. Spoke with his mother who states that the patient has been sometime in [facility]. This raises the suspicion of a parasite disorder especially with a monocytosis. This is such as endocarditis, brucellosis, TB,rickettsial dz, celiac sprue and Listeria need to be considered as well as Loren Torito. He had no stigmata to suggest COVID19 flexion. 05.25.2019: Patient sedation has been difficult to control but propofol caused further hypotension. He is currently well sedated. Blood pressure still low and adjustments and vasopressors have been done. In consideration for toxic alcohol ingestion started on fomepizole, folic acid and thiamine. Developed temperature elevation above 103. Broad-spectrum antibiotics have been started. No clear source of infection has been found. - Medications: Medications reviewed and adjusted accordingly: Yes Vasopressors:: Levophed, vasopressin, neosynephrine Sedation:: Dexmedetomidine, benzodiazepine, Dilaudid [employer] Physical Exam Vital Signs: Temp Pulse Resp BP Pulse Ox 98.8 F 119 H 20 81/57 L 93 05/26/19 05:38 05/25/19 20:14 05/26/19 14:00 05/26/19 13:15 05/26/19 14:00 Intake & Output 05/25/19 05/26/19 05/27/19 06:59 06:59 06:59 Intake Total 4816 6653.7 1968.5 Output Total 236 443 125 Balance 4580 6210.7 1843.5 Weight 74.6 kg 80.9 kg Weight/Height Weight 80.9 kg Height 6 ft General appearance: PRESENT: no acute distress, disheveled, thin Exam: Intubated nontoxic but extremely ill 48-year-old male no active distress he is sedated appropriately Eye exam: PRESENT: PERRLA, scleral icterus. ABSENT: conjunctival injection, nys tagmus Ear exam: ABSENT: bleeding Mouth exam: PRESENT: dry mucosa Teeth exam: PRESENT: edentulous Neck exam: ABSENT: carotid bruit, JVD, lymphadenopathy, meningismus, thyromegaly, tracheal deviation Respiratory exam: PRESENT: clear to auscultation dmitri, unlabored. ABSENT: ac cessory muscle use, rales, rhonchi, tachypnea, wheezes Cardiovascular exam: PRESENT: RRR, +S1, +S2. ABSENT: clicks, systolic murmur, tachycardia Pulses: PRESENT: +1 pedal pulses bilateral GI/Abdominal exam: PRESENT: ascites - mils, firm, hypoactive bowel sounds. ABSENT: distended, guarding, mass, Ulrich's sign, organolmegaly, rebound, rigid, tenderness Rectal exam: PRESENT: deferred Gentrourinary exam: PRESENT: indwelling catheter Extremities exam: PRESENT: +1 edema Musculoskeletal exam: ABSENT: deformity, dislocation Neurological exam: PRESENT: altered - Response to noxious stimulus appropriately no focal deficit Psychiatric exam: ABSENT: agitated Skin exam: PRESENT: dry, intact, normal color, warm. ABSENT: cyanosis, jaundice, mottled, rash Tubes/Lines: PRESENT: Endotracheal Tube, Central Line, Arterial Catheter - Orogastric tube, [place] Laboratory/Radiographs Laboratory Results: 05/26/19 05:50 05/26/19 13:55 04/05/25/19 05/25/19 14:00 14:03 18:10 WBC RBC Hgb Hct MCV MCH MCHC RDW Plt Count Seg Neutrophils % Carbonic Acid 0.81 L HCO3/H2CO3 Ratio 17:1 ABG pH 7.33 L ABG pCO2 26.9 L ABG pO2 91.9 ABG HCO3 13.8 L ABG O2 Saturation 96.7 ABG Base Excess -10.6 FiO2 40% Sodium 118.7 L* Potassium 4.9 Chloride 89 L Carbon Dioxide 13 L Anion Gap 17 BUN 24 H Creatinine 2.85 H Est GFR ( Amer) 29 L Glucose 403 H* Lactic Acid Calcium 5.2 L* Ionized Calcium Naomie Phosphorus Magnesium 1.9 Ferritin 1170.00 H Total Bilirubin 4.5 H AST 164 H Alkaline Phosphatase 61 Ammonia C-Reactive Protein 166.1 H Total Protein 4.6 L Albumin 2.2 L Amylase Lipase 05/25/19 05/25/19 05/25/19 18:10 20:35 22:35 WBC RBC Hgb Hct MCV MCH MCHC RDW Plt Count Seg Neutrophils % Carbonic Acid 0.82 L HCO3/H2CO3 Ratio 17:1 ABG pH 7.33 L ABG pCO2 27.1 L ABG pO2 89.6 ABG HCO3 14.0 L ABG O2 Saturation 96.5 ABG Base Excess -10.4 FiO2 40% Sodium 117.4 L* Potassium 4.9 Chloride 86 L Carbon Dioxide 13 L Anion Gap 18 BUN 26 H Creatinine 2.64 H Est GFR ( Amer) 31 L Glucose 432 H* Lactic Acid Calcium 4.8 L* Ionized Calcium Naomie 0.70 L Phosphorus 5.9 H Magnesium 1.7 Ferritin Total Bilirubin AST Alkaline Phosphatase Ammonia C-Reactive Protein Total Protein Albumin Amylase Lipase 05/25/19 05/26/19 05/26/19 22:35 02:32 02:32 WBC RBC Hgb Hct MCV MCH MCHC RDW Plt Count Seg Neutrophils % Carbonic Acid 0.78 L HCO3/H2CO3 Ratio 19:1 ABG pH 7.40 ABG pCO2 25.9 L ABG pO2 83.1 ABG HCO3 15.5 L ABG O2 Saturation 96.4 ABG Base Excess -7.8 FiO2 35% Sodium 117.4 L* 118.1 L* Potassium 4.5 4.2 Chloride 84 L 85 L Carbon Dioxide 14 L 18 L Anion Gap 19 15 BUN 27 H 28 H Creatinine 3.25 H 3.45 H Est GFR ( Amer) 25 L 23 L Glucose 416 H* 334 H Lactic Acid Calcium 5.2 L* 5.4 L* Ionized Calcium Naomie Phosphorus 5.5 H 5.2 H Magnesium 1.5 L 1.5 L Ferritin Total Bilirubin AST Alkaline Phosphatase Ammonia C-Reactive Protein Total Protein Albumin Amylase Lipase 05/26/19 05/26/19 05/26/19 05:50 05:50 05:50 WBC 18.6 H RBC 3.29 L Hgb 11.4 L Hct 33.3 L MCV 101 H MCH 34.6 H MCHC 34.1 RDW 12.8 Plt Count 36 L Seg Neutrophils % Not Reportable Carbonic Acid 0.79 L HCO3/H2CO3 Ratio 20:1 ABG pH 7.40 ABG pCO2 26.2 L ABG pO2 75.4 L ABG HCO3 16.0 L ABG O2 Saturation 95.4 ABG Base Excess -6.9 FiO2 35% Sodium 117.4 L* Potassium 3.8 Chloride 84 L Carbon Dioxide 17 L Anion Gap 16 BUN 29 H Creatinine 3.41 H Est GFR ( Amer) 23 L Glucose 288 H Lactic Acid Calcium 4.8 L* Ionized Calcium Naomie 0.75 L Phosphorus Magnesium 2.2 Ferritin Total Bilirubin AST Alkaline Phosphatase Ammonia C-Reactive Protein Total Protein Albumin Amylase Lipase 6464.3 H 05/26/19 05/26/19 05/26/19 05:50 06:12 06:25 WBC RBC Hgb Hct MCV MCH MCHC RDW Plt Count Seg Neutrophils % Carbonic Acid HCO3/H2CO3 Ratio ABG pH ABG pCO2 ABG pO2 ABG HCO3 ABG O2 Saturation ABG Base Excess FiO2 Sodium Potassium Chloride Carbon Dioxide Anion Gap BUN Creatinine Est GFR ( Amer) Glucose Lactic Acid 6.2 H Calcium Ionized Calcium Naomie 0.75 L Phosphorus Magnesium Ferritin Total Bilirubin AST Alkaline Phosphatase Ammonia 13.9 C-Reactive Protein Total Protein Albumin Amylase Lipase 05/26/19 05/26/19 05/26/19 06:25 08:00 08:00 WBC RBC Hgb Hct MCV MCH MCHC RDW Plt Count Seg Neutrophils % Carbonic Acid 0.85 L HCO3/H2CO3 Ratio 20:1 ABG pH 7.41 ABG pCO2 28.2 L ABG pO2 73.9 L ABG HCO3 17.6 L ABG O2 Saturation 95.3 ABG Base Excess -5.8 FiO2 35% Sodium 116.2 L* Potassium 4.0 Chloride 84 L Carbon Dioxide 17 L Anion Gap 15 BUN 31 H Creatinine 3.14 H Est GFR ( Amer) 26 L Glucose 252 H Lactic Acid Calcium 5.1 L* Ionized Calcium Naomie Phosphorus 4.6 H 4.8 H Magnesium 2.1 Ferritin Total Bilirubin AST Alkaline Phosphatase Ammonia C-Reactive Protein Total Protein Albumin Amylase 762 H Lipase 05/26/19 05/26/19 05/26/19 11:00 11:00 13:55 WBC RBC Hgb Hct MCV MCH MCHC RDW Plt Count Seg Neutrophils % Carbonic Acid 0.83 L HCO3/H2CO3 Ratio 21:1 ABG pH 7.44 ABG pCO2 27.6 L ABG pO2 70.4 L ABG HCO3 18.2 L ABG O2 Saturation 95.0 ABG Base Excess -4.7 FiO2 35% Sodium 115.1 L* Potassium 3.9 Chloride 82 L Carbon Dioxide 20 L Anion Gap 13 BUN 31 H Creatinine 3.09 H Est GFR ( Amer) 26 L Glucose 211 H Lactic Acid Calcium 4.9 L* Ionized Calcium Naomie Phosphorus 4.1 Magnesium 1.9 Ferritin Total Bilirubin AST Alkaline Phosphatase Ammonia C-Reactive Protein Total Protein Albumin Amylase Lipase 05/24/19 05/24/19 05/24/19 11:08 11:08 21:00 Creatine Kinase CK-MB (CK-2) 3.19 Troponin I 0.013 0.056 NT-Pro-B Natriuret Pep 109 05/24/19 05/25/19 05/25/19 21:00 04:07 09:40 Creatine Kinase 403 H CK-MB (CK-2) Troponin I 0.106 0.122 NT-Pro-B Natriuret Pep Impressions: Abdomen/Pelvis CT 05/24/19 00:00 IMPRESSION: Marked fatty liver with a diffuse heterogeneous pattern to the liver but no focal masses. Extensive fluid around the pancreas and extending along the gutters and into the abdomen pelvis. Fluid around the liver and spleen. These findings related either to cirrhosis or pancreatitis. No contrast seen in the ureters on delayed imaging. Question early phase of imaging versus renal tubular dysfunction. Acute Abdomen Series 05/24/19 10:49 IMPRESSION: NO RADIOGRAPHIC EVIDENCE FOR ACUTE ABDOMINAL DISEASE. Head CT 05/24/19 13:32 IMPRESSION: NORMAL BRAIN CT WITHOUT CONTRAST. EVIDENCE OF ACUTE STROKE: NO. Chest/Abdomen CTA 05/24/19 14:09 IMPRESSION: No pulmonary emboli. Fluid in the interstitium of the lungs with basilar opacities and small effusions. Abdomen Ultrasound 05/25/19 00:00 IMPRESSION: 1. Limited ultrasound of the abdomen with non visualization of the pancreas, IVC, aorta and CBD due to overlying bowel. 2. Increased echogenicity of hepatic parenchyma consistent with diffuse hepatocellular disease (most commonly hepatic steatosis). 3. No hydronephrosis. 4. No splenomegaly. 5. Small amount of ascites. 6. Circumferential thickening of the gallbladder wall. Chest X-Ray 05/26/19 06:00 IMPRESSION: Developing pleural effusions with bibasilar airspace disease. All labs, radiographs, diagnostic studies and EKGs were personally reviewed: Yes In addition, reports of radiographic and diagnostic studies were read: Yes Assessment and Plan - Diagnosis (1) Refractory shock Is this a current diagnosis for this admission?: Yes (2) Pancreatitis, alcoholic, acute Is this a current diagnosis for this admission?: Yes (3) Acute renal failure Qualifiers: Acute renal failure type: with acute renal cortical necrosis Qualified Code(s): N17.1 - Acute kidney failure with acute cortical necrosis Is this a current diagnosis for this admission?: Yes (4) High anion gap metabolic acidosis Is this a current diagnosis for this admission?: Yes (5) High serum osmolar gap Is this a current diagnosis for this admission?: Yes (6) Toxic effect of unspecified alcohol Qualifiers: Encounter type: initial encounter Injury intent: accidental or unintentional Qualified Code(s): T51.91XA - Toxic effect of unspecified alcohol, accidental (unintentional), initial encounter Is this a current diagnosis for this admission?: Yes (7) Cardiac arrest Is this a current diagnosis for this admission?: Yes (8) Lactic acidosis Is this a current diagnosis for this admission?: Yes Plan Summary: 05.26.2019: Patient has improved slightly in his creatinine has plateaued. Of utmost concern is the source for his refractory shock. Treated with steroids which did not seem to improve significantly. He is on broad-spectrum antibiotics with the addition of clindamycin and micafungin today. The easiest and most convenient diagnosis is gram-positive bacteremia based on 1 blood culture however his presentation seems significant in light of this. The most concerning issue was the monocytosis which may be a harbinger of a para sitic or viral infection. I had a lengthy discussion with infectious disease and hematology today as well. In addition have sent serologic studies for mumps, CMV and gold Quantsferin He did not present with a presentation consistent with COVID however infectious disease states that with the heterogeneous nature of this pandemic it would be at least advisable to check. Added clindamycin on the off chance that the gram-positive represents a toxic shock related bacteremia If possible we will obtain a NAIMA however this cannot be accomplished until his CODE STATUS has been ruled out given the concern for droplets From a respiratory standpoint he is not ready to be weaned yet and has mild degree of hypoxia. His creatinine has plateaued and is now declining. Is oliguric but does not need dialysis. A status has improved on bicarb drip. He does have profound hypocalcemia and hyponatremia which have been replaced. Amylase and lipase are improving significantly and patient's abdomen although firm is not distinctly distended. Abdominal pressures have ranged between 13- 20. He has had no problems with vent pressures. Have moved the patient to a PUI status for SARS, 2-CoViD19. Have added clindamycin for toxin mediation Continue micafungin. On the off chance that this may be a Strongyloides superinfection have sent serologies. Ova and parasites have also been ordered. 05.25.2019: Respiratory: Patient's respiratory status is somewhat quiescent. He required intubation secondary to acute hypoxic respiratory failure associated with his cardiac arrest. His chest x-ray, is quite clear and there is no evidence to support SARS, 2- CoViD19. I would not be surprised that interstitial changes do start to occur with the amount of volume the patient is needed but will continue to watch vigilantly Infectious: Patient's refractory shock may be the result of an infection however the source is still under investigation. Another possible infectious etiology would be Strongyloides superinfection. He does not have all the stigmata of this however if we do not find a source this would be a consideration. He has developed a fever and all of this may be the result of an autoimmune or infectious process. I have broadened out his antibiotics and will include antifungals as well. Cardiac: Bedside critical care echo has been done which shows somewhat normal ejection fraction and a hyperdynamic state. Ordered a more formal echo to rule out any other causes. Due to the degree of pancreatitis I am unable to evaluate his IVC to determine his volume status. He is in refractory shock and may consider the use of methylene blue to reduce the vaso-plegia. Hematologic: Patient has again hemoconcentration. He did not seem to be in a capillary leak syndrome but this may have been the start. Hemoglobin hematocrit are lower but not to the degree that requires transfusion. Other consideration is that this patient may be in the early phases of lympho-cytosis hemophagocytic syndrome. We will continue to monitor. Endocrine: Cortisol level at 72 which is indicative of the degree of stress. This also would predict a higher mortality. He is on Solu-Cortef but will try to reduce the dose as quickly as possible. I have also kept him on this on the off chance that there is some degree of alcohol related liver disease. Discriminate factor is not high Renal: Patient is in oliguric renal failure and have asked the nephrology service for assistance. 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 If that is the case we may be compelled to transfer if we cannot do CRRT in this institution. Metabolic: Pt. has profound metabolic acidosis. He had an elevated anion gap and osmolar gap of 24 raising suspicion for toxic alcohol ingestion. Have started treatment and discussed the case with poison control who have been quite helpful. Changes IV solution to a higher bicarbonate. He may require CRRT given his hemodynamic instability. Continue to monitor closely and repeat labs have been ordered including lactic acid. Complete abdominal ultrasound has been ordered to look at his kidneys and his liver as well as portal flow. Alimentary: Patient has significant pancreatitis but exam is out of proportion to elevation. This may be related to his acidosis and a spurious result. Being said his CT scan findings are suspicious for significant fluid. This raises the diagnostic possibility of capillary leak syndrome which is usually a culmination of malignancy until proven otherwise. Ordered complete abdomen ultrasound and will follow amylase and lipase. Have ordered 4-hour abdominal compartment pressures as well. Neurologic: Need to maintain vigilance for alcohol withdrawal syndrome. Have started thiamine and other supplemental medications as well. Is been extremely difficult to sedate which may be the heralding event for withdrawal. He had complete neurological recovery after his cardiac arrest. Sedation: Maintained on benzodiazepine and Dilaudid as well as Precedex Lines/Tubes: Central venous catheter and arterial lines placed 05/24/2019. Has [place] in place which is necessary given his acute renal dysfunction and acute critical illness Other: Critical Time Critical Time (minutes): 70 Level of Care: ICU -: 1. The care of a critical patient is a dynamic process. This note is a registered representative synopsis but static in nature. The timeframe for treatments given in order is not necessarily the actual time these treatments may have been done. 2. This patient requires critical care secondary to ongoing requirements for therapy not offered or safe outside the critical care environment. Transfer to a lower level of care will result in altered life or limb morbidity and mortality. 3. Multidisciplinary rounds completed. 4. ABCDE bundle addressed.
[2019-05-26 18:49] LABS: ANION GAP 12 (5-19); BLOOD UREA NITROGEN 32 mg/dL (7-20); CARBON DIOXIDE 21 mmol/L (22-30); CHLORIDE 84 mmol/L (98-107); GLUCOSE 83 mg/dL (75-110); PHOSPHORUS 4.1 mg/dL (2.5-4.5); POTASSIUM 4.1 mmol/L (3.6-5.0)
[2019-05-26 19:11] LABS: CALCIUM 4.9 mg/dL (8.4-10.2)
[2019-05-26 19:16] LABS: ARTERIAL BLOOD BASE EXCESS -3.2 mmol/L; ARTERIAL BLOOD FIO2 40%; ARTERIAL BLOOD H2CO3 0.69 mmol/L (1.05-1.35); ARTERIAL BLOOD HCO3 18.2 mmol/L (20-24); ARTERIAL BLOOD O2 SATURATION 94.3 % (94-98); ARTERIAL BLOOD PCO2 22.8 mmHg (35-45); ARTERIAL BLOOD PH 7.52 (7.35-7.45); ARTERIAL BLOOD PO2 61.7 mmHg (80-100); ARTERIAL BLOOD TOTAL CO2 18.9 mmol/L (23-27)
[2019-05-26] MEDS ORDERED: SODIUM CHLORIDE 3% 500 ML IV ONE (23:22)
[2019-05-26] MEDS ORDERED: SODIUM CHLORIDE 3% 250 ML IV ONE (23:30)
[2019-05-26 23:32] LABS: ARTERIAL BLOOD BASE EXCESS -3.3 mmol/L; ARTERIAL BLOOD H2CO3 0.96 mmol/L (1.05-1.35); ARTERIAL BLOOD HCO3 20.3 mmol/L (20-24); ARTERIAL BLOOD O2 SATURATION 94.3 % (94-98); ARTERIAL BLOOD PCO2 31.8 mmHg (35-45); ARTERIAL BLOOD PH 7.42 (7.35-7.45); ARTERIAL BLOOD PO2 68.4 mmHg (80-100); ARTERIAL BLOOD TOTAL CO2 21.2 mmol/L (23-27)
[2019-05-26 23:40] LABS: ARTERIAL BLOOD FIO2 45%
[2019-05-26 23:48] LABS: ANION GAP 19 (5-19); BLOOD UREA NITROGEN 34 mg/dL (7-20); CARBON DIOXIDE 17 mmol/L (22-30); CHLORIDE 81 mmol/L (98-107); GLUCOSE 127 mg/dL (75-110); PHOSPHORUS 4.9 mg/dL (2.5-4.5); POTASSIUM 4.6 mmol/L (3.6-5.0)
[2019-05-26 23:57] LABS: CALCIUM 4.7 mg/dL (8.4-10.2)
[2019-05-27] MEDS ORDERED: SODIUM CHLORIDE IV ONE (00:04)
[2019-05-27] MEDS ORDERED: CALCIUM GLUCONATE IV ONE (00:04)
[2019-05-27] MEDS ORDERED: [UNRECOGNIZED DRUG - OTHER] IV ONE (00:04)
[2019-05-27] MEDS ORDERED: NORMAL SALINE 500 ML IV ONE (00:17)
[2019-05-27] MEDS ORDERED: NORMAL SALINE 250 ML IV ONE (00:30)
[2019-05-27] MEDS: CALCIUM GLUC IN NACL, ISO-OSM 1 GM/50 ML RTUPB IV PRN ×3 (00:44→01:07)
[2019-05-27] MEDS: NORMAL SALINE 250 ML with NOREPINEPHRINE BITARTRATE 4 MG IV PRN ×22 (00:44→23:18)
[2019-05-27] MEDS: CLINDAMYCIN 900 MG/D5W RTU 900 MG/50 ML RTUPB IV SCH ×3 (01:00→17:10)
[2019-05-27] MEDS: MAGNESIUM SULFATE/D5W 1 GM/100 ML RTUPB IV SCH ×3 (01:00→03:17)
[2019-05-27] MEDS: NORMAL SALINE 250 ML with PHENYLEPHRINE HCL 40 MG IV PRN ×14 (01:34→21:06)
[2019-05-27] MEDS: ALBUMIN HUMAN 12.5 GM/50 ML RTUINJ IV SCH ×4 (01:45→03:58)
[2019-05-27] MEDS ORDERED: ALBUMIN HUMAN 12.5 GM/50 ML RTUINJ IV ONE ×3 (01:58→03:06)
[2019-05-27] MEDS ORDERED: CALCIUM GLUCONATE 1000 MG/10 ML INJ IV SCH (02:00)
[2019-05-27] MEDS ORDERED: EPINEPHRINE INJ 1 MG/10 ML DISP.SYRIN ONE (02:00)
[2019-05-27 02:05] LABS: ARTERIAL BLOOD BASE EXCESS -8.6 mmol/L; ARTERIAL BLOOD H2CO3 1.02 mmol/L (1.05-1.35); ARTERIAL BLOOD HCO3 16.7 mmol/L (20-24); ARTERIAL BLOOD O2 SATURATION 86.3 % (94-98); ARTERIAL BLOOD PCO2 33.9 mmHg (35-45); ARTERIAL BLOOD PH 7.31 (7.35-7.45); ARTERIAL BLOOD TOTAL CO2 17.8 mmol/L (23-27)
[2019-05-27 02:07] LABS: ARTERIAL BLOOD FIO2 45%
[2019-05-27] MEDS ORDERED: EPINEPHRINE INJ/PF 1 MG/1 ML AMPULE ONE ×3 (02:08→05:54)
[2019-05-27] MEDS ORDERED: EPINEPHRINE INJ 1 MG/10 ML DISP.SYRIN IV ONE ×2 (02:30→05:23)
[2019-05-27] MEDS: CALCIUM GLUCONATE 1000 MG/10 ML INJ IV SCH ×3 (03:00→03:57)
[2019-05-27] MEDS ORDERED: CALCIUM GLUCONATE 1000 MG/10 ML INJ IV ONE (03:03)
--- NOTE | 2019-05-27 03:09 | RADIOLOGY REPORT (SQ) ---
AP Portable chest: 05/27/2019 2:06 AM CDT History: 48-year old patient with respiratory failure. Comparison: Chest radiograph performed 05/26/2019. Findings: The cardiomediastinal silhouette is enlarged. No pneumothorax is seen. There are increasing bibasilar airspace opacities and bilateral effusions, right greater than left. There is obscuration of both hemidiaphragms, likely due to overlying airspace opacities and/or effusions. A right internal jugular central line catheter tip projects near the SVC/right atrial junction. An endotracheal tube tip projects approximately 2.5 cm above the ramana. A nasogastric tube tip is seen overlying the left upper quadrant of the abdomen, projecting at the stomach. Impression: There are bibasilar space opacities with moderate bilateral effusions, right greater than left. These appear increased to prior imaging.
--- NOTE | 2019-05-27 03:14 | RADIOLOGY REPORT (SQ) ---
ABDOMINAL RADIOGRAPH: 05/27/2019 2:13 AM CDT COMPARISON: None available TECHNIQUE: A single radiograph of the abdomen was obtained. HISTORY: 48-year old with abdominal pain. FINDINGS: Only the upper abdomen was included on this examination. The visualized bowel gas pattern is nonspecific and nonobstructive. No abnormal intra-abdominal calcifications are seen. There are no findings to suggest organomegaly. A nasogastric tube tip is seen overlying the left upper quadrant of the abdomen, projecting at the stomach. There are bibasilar airspace opacities with bilateral pleural effusions present. There is contrast seen at both kidneys. IMPRESSION: A nasogastric tube tip is seen overlying the left upper quadrant of the abdomen, projecting at the stomach. There is persistent enhancement of both kidneys which could be due to recent contrast administration or contrast nephropathy.
[2019-05-27 03:57] LABS: ARTERIAL BLOOD BASE EXCESS -14.3 mmol/L; ARTERIAL BLOOD HCO3 12.6 mmol/L (20-24); ARTERIAL BLOOD PCO2 33.3 mmHg (35-45); ARTERIAL BLOOD PO2 89.3 mmHg (80-100); ARTERIAL BLOOD TOTAL CO2 13.6 mmol/L (23-27)
[2019-05-27] MEDS: DEXTROSE 5%-WATER 250 ML with EPINEPHRINE/PF 1 MG IV PRN ×8 (03:57→08:12)
[2019-05-27 03:59] LABS: ARTERIAL BLOOD FIO2 65%
[2019-05-27 04:01] LABS: HEMATOCRIT 27.5 % (37.9-51.0); HEMOGLOBIN 9.4 g/dL (13.5-17.0); MEAN CORPUSCULAR HEMOGLOBIN 34.9 pg (27.0-33.4); MEAN CORPUSCULAR HGB CONC 34.3 g/dL (32.0-36.0); MEAN CORPUSCULAR VOLUME 102 fl (80-97); RED CELL DISTRIBUTION WIDTH 12.9 % (11.5-14.0)
[2019-05-27 04:10] LABS: AMYLASE 362 U/L (30-110); BLOOD UREA NITROGEN 31 mg/dL (7-20); CHLORIDE 85 mmol/L (98-107); GLUCOSE 213 mg/dL (75-110); PHOSPHORUS 6.6 mg/dL (2.5-4.5); POTASSIUM 4.3 mmol/L (3.6-5.0)
[2019-05-27 04:16] LABS: CARBON DIOXIDE 12 mmol/L (22-30)
[2019-05-27 04:28] LABS: ANION GAP 23 (5-19); CALCIUM 4.9 mg/dL (8.4-10.2)
[2019-05-27 04:31] LABS: ABSOLUTE LYMPHOCYTES# (MANUAL) 0.7 10^3/uL (0.5-4.7); ABSOLUTE MONOCYTES # (MANUAL) 1.7 10^3/uL (0.1-1.4); BAND NEUTROPHILS % (MANUAL) 13 % (3-5); BASOPHILS % (MANUAL) 0 % (0-2); EOSINOPHILS % (MANUAL) 0 % (0-6); LYMPHOCYTES % (MANUAL) 4 % (13-45); MONOCYTES % (MANUAL) 10 % (3-13); NUCLEATED RED BLOOD CELLS 1 /100 WBC (0); SEGMENTED NEUTROPHILS % (MAN) 73 % (42-78); TOTAL CELLS COUNTED 100
[2019-05-27 04:34] LABS: BURR CELLS SLIGHT; PLATELET COMMENT DECREASED; SCHISTOCYTES SLIGHT; TEAR DROP CELLS SLIGHT; TOXIC GRANULATION SLIGHT
[2019-05-27 04:35] LABS: PLATELET COUNT 36 10^3/uL (150-450)
[2019-05-27] MEDS ORDERED: NORMAL SALINE IV ONE ×2 (05:01→10:30)
[2019-05-27] MEDS: WATER FOR INJECTION STERILE IV PRN ×4 (05:23→11:12)
[2019-05-27] MEDS ORDERED: NORMAL SALINE 1000 ML 500 ML IV ONE ×3 (05:23→05:43)
[2019-05-27] MEDS: SODIUM BICARBONATE IV PRN ×4 (05:23→11:12)
[2019-05-27] MEDS: MINERAL OIL/PETROLATUM,WHITE OPH OINT 3.5 GM OU SCH ×3 (05:24→21:07)
[2019-05-27] MEDS ORDERED: SODIUM BICARBONATE IV PRN ×2 (05:44)
[2019-05-27] MEDS ORDERED: WATER FOR INJECTION STERILE IV PRN ×2 (05:44)
[2019-05-27] MEDS: HYDROCORTISONE SOD SUCCINATE INJ/PF 100 MG/2 ML SDV IV SCH (05:45)
[2019-05-27] MEDS ORDERED: NOREPINEPHRINE BITARTRATE INJ/PF 4 MG/4 ML SDV IV ONE (06:26)
--- NOTE | 2019-05-27 07:33 | EKG REPORT ---
SEVERITY:- ABNORMAL ECG - JUNCTIONAL TACHYCARDIA VS SINUS TACHYCARDIA (SEE P WAVES IN V2) LOW VOLTAGE THROUGHOUT BORDERLINE T ABNORMALITIES, INFERIOR LEADS : Confirmed by: Young Myers MD 27-May-2019 07:32:27
--- NOTE | 2019-05-27 07:58 | XCELERA REPORT ---
[address] [address] Transthoracic Echocardiogram Report Name: MEHRDAD HERMOSILLO II Age: 48 yrs Gender: Male : 1970 Patient Status: Inpatient Patient Location: ICU^[id number]^A Study Date: 05/27/2019 06:10 AM History: CHF Height: 72 in Weight: 178 lb BSA: 2.0 m2 Procedure: A complete two-dimensional transthoracic echocardiogram was performed (2D, M-mode, spectral and color flow Doppler). The study was technically difficult with many images being suboptimal in quality. Reason For Study: heart failure Previous Evaluation: No previous studies were available. History: Hypotension Pancreatitis. Ordering Physician: BRYANNA^^^PARTS SALESPERSON Performed By: Danielle Matos Interpretation Summary The study was technically difficult with many images being suboptimal in quality. Left ventricular systolic function is normal. The Ejection Fraction estimate is 60-65% The right ventricle is normal in size and function. There is a trace amount of mitral regurgitation There is no aortic valve stenosis There is a mild amount of tricuspid regurgitation There is mild pulmonary hypertension by echo Minimal pericardial effusion. MMode/2D Measurements & Calculations RVDd: 2.6 cm LVIDd: 4.6 cm FS: 32.9 % Ao root diam: 3.0 cm IVSd: 1.1 cm LVIDs: 3.1 cm EDV(Teich): 99.5 ml Ao root area: 7.1 cm2 LVPWd: 0.89 cm ESV(Teich): 38.3 ml LA dimension: 3.4 cm EF(Teich): 61.4 % Doppler Measurements & Calculations MV E max nazia: MV P1/2t max nazia: Ao V2 max: LV V1 max P.4 cm/sec 151.3 cm/sec 210.4 cm/sec 11.3 mmHg MV A max nazia: MV P1/2t: 59.7 msec Ao max PG: LV V1 max: 107.4 cm/sec MVA(P1/2t): 3.7 cm2 17.7 mmHg 168.4 cm/sec MV E/A: 1.3 MV dec slope: 742.0 cm/sec2 MV dec time: 0.18 sec PA V2 max: TR max nazia: MV P1/2t-pr_phl: 139.1 cm/sec 314.9 cm/sec 59.7 msec PA max P.9 mmHgTR max P.7 mmHg Left Ventricle The left ventricle is grossly normal size. There is normal left ventricular wall thickness. Left ventricular systolic function is normal. The Ejection Fraction estimate is 60-65%. LV diastolic function not assessed. No regional wall motion abnormalities noted. Right Ventricle The right ventricle is normal in size and function. Atria The right atrium is normal. The left atrial size is normal. Mitral Valve The mitral valve is grossly normal. There is a trace amount of mitral regurgitation. Aortic Valve The aortic valve is normal in structure and function. The aortic valve is trileaflet. The aortic valve opens well. There is no aortic valve stenosis. No aortic regurgitation is present. Tricuspid Valve The tricuspid valve is normal in structure and function. There is a mild amount of tricuspid regurgitation. Right ventricular systolic pressure is estimated to be elevated at 40-50mmHg. There is mild pulmonary hypertension by echo. Pulmonic Valve The pulmonic valve is not well visualized. There is a mild amount of pulmonic regurgitation. Great Vessels The aortic root is normal size. The inferior vena cava was not well visualized. Effusions Minimal pericardial effusion. : BRYANNA^^^Jeff Salazar
[2019-05-27 08:25] LABS: HIV-1 RNA PCR QUANT <20 copies/mL (.)
[2019-05-27] MEDS ORDERED: NORMAL SALINE IV PRN ×2 (08:41)
[2019-05-27] MEDS ORDERED: EPINEPHRINE IV PRN ×2 (08:41)
[2019-05-27 08:48] LABS: ARTERIAL BLOOD H2CO3 0.79 mmol/L (1.05-1.35); ARTERIAL BLOOD HCO3 10.4 mmol/L (20-24); ARTERIAL BLOOD O2 SATURATION 93.4 % (94-98); ARTERIAL BLOOD PCO2 26.3 mmHg (35-45); ARTERIAL BLOOD PH 7.21 (7.35-7.45); ARTERIAL BLOOD PO2 78.6 mmHg (80-100); ARTERIAL BLOOD TOTAL CO2 11.2 mmol/L (23-27)
[2019-05-27] MEDS ORDERED: AMINOPHYLLINE INJ/PF 250 MG/10 ML SDV IV ONE (08:52)
[2019-05-27 08:54] LABS: ARTERIAL BLOOD FIO2 65%
[2019-05-27] MEDS ORDERED: TERBUTALINE SULFATE INJ/PF 1 MG/1 ML SDV SUBCUT ONE (09:30)
[2019-05-27] MEDS: PANTOPRAZOLE SODIUM 40 MG VIAL IV SCH (09:48)
[2019-05-27] MEDS: NORMAL SALINE IV PRN ×14 (09:51→23:18)
[2019-05-27] MEDS: EPINEPHRINE IV PRN ×10 (09:51→23:18)
[2019-05-27] MEDS: MEROPENEM 1 GM in NORMAL SALINE 50 ML IV SCH ×2 (09:55→22:21)
[2019-05-27] MEDS ORDERED: FOLIC ACID IV SCH (10:00)
[2019-05-27] MEDS ORDERED: NORMAL SALINE IV SCH (10:00)
[2019-05-27] MEDS ORDERED: AMINOPHYLLINE IV ONE (10:30)
[2019-05-27] MEDS: AMINOPHYLLINE IV PRN ×4 (10:47→23:02)
[2019-05-27] MEDS: THIAMINE HCL 250 MG in NORMAL SALINE 50 ML IV SCH ×2 (11:21→22:44)
[2019-05-27 11:38] LABS: PHOSPHORUS 7.2 mg/dL (2.5-4.5)
[2019-05-27] MEDS: METRONIDAZOLE 500 MG/NS RTU 500 MG/100 ML RTUPB IV SCH ×3 (11:44→21:07)
[2019-05-27] MEDS ORDERED: IVERMECTIN 3 MG TABLET PO ONE (12:00)
[2019-05-27] MEDS: MICAFUNGIN SODIUM 100 MG in NORMAL SALINE 100 ML IV SCH (12:05)
[2019-05-27 13:24] LABS: ARTERIAL BLOOD BASE EXCESS -13.6 mmol/L; ARTERIAL BLOOD H2CO3 0.81 mmol/L (1.05-1.35); ARTERIAL BLOOD O2 SATURATION 92.8 % (94-98); ARTERIAL BLOOD PCO2 26.9 mmHg (35-45); ARTERIAL BLOOD PH 7.27 (7.35-7.45); ARTERIAL BLOOD PO2 72.3 mmHg (80-100); ARTERIAL BLOOD TOTAL CO2 12.8 mmol/L (23-27)
[2019-05-27] MEDS: VANCOMYCIN HCL 750 MG in DEXTROSE 5%-WATER 250 ML IV SCH (13:26)
[2019-05-27 13:27] LABS: ARTERIAL BLOOD FIO2 65%
[2019-05-27] MEDS ORDERED: SODIUM CHLORIDE 3% 500 ML IV ONE ×2 (13:30→22:46)
[2019-05-27 13:36] LABS: ALBUMIN 1.8 g/dL (3.5-5.0); ALKALINE PHOSPHATASE 66 U/L (38-126); ASPARTATE AMINO TRANSFERASE 85 U/L (17-59); BILIRUBIN,DIRECT 6.9 mg/dL (0.0-0.4); BILIRUBIN,TOTAL 7.8 mg/dL (0.2-1.3); TOTAL PROTEIN 3.7 g/dL (6.3-8.2)
[2019-05-27] MEDS: WATER FOR INJECTION,STERILE 1,000 ML with SODIUM BICARBONATE 150 MEQ IV PRN ×4 (14:00→18:39)
[2019-05-27] MEDS: INSULIN REG, HUMAN 100 UNIT/ML 3 ML VIAL (PYX) SUBCUT SCH ×2 (14:42→18:31)
[2019-05-27 17:07] LABS: PAPPENHEIMER BODIES PRESENT; TOXIC VACUOLATION PRESENT
--- NOTE | 2019-05-27 17:16 | PDOC CRITICAL CARE PROG REPORT ---
General Date:: 05/27/19 ICU Day:: 3 Ventilator Day:: 3 Hospital Day:: 3 Resuscitation Status: Full Code Medical Power of Veneer Marker: Mother Padilla Events in the past 12 to 24 Hours:: 05.27.2019: Patient in extreme vasodilatory shock. Appeared hypovolemic on bedside echo. Had consult from ID. Ruling out COVID as well. Multiple laboratory abnormalities. Responded to volume. In discussion with mom patient had been in [place] a number of years ago but recently (2014) he was in [place]. Official echo reading shows underfilled left ventricle. Ventricular pressure minimally elevated at 30. Significant anasarca with edema of scrotum face and body. Intra-abdominal pressures abated at 20 however peak and plateau pressures are not elevated. Thrombocytopenia is present and anticoagulation has been held Consistent hypocalcemia and hyponatremia. Concern for vasodilatory shock secondary to a capillary leak syndrome was given terbutaline and bolus Aminophylline. 05.26.2019: Patient is still vasopressor dependent but has had some reduction in dose. His creatinine has plateaued and is now decreasing. He does not appear to have an toxic alcohol process. Mother did disclose that he does drink a significant amount of alcohol in the form of beer. Cultures grew gram-positive cocci and he was started on clindamycin today as well. 05.25.2019: Patient admitted through the emergency room last night as noted by the H&P. During the initiation of chest x-ray after line placement he went into what appeared to be a cardiac arrest. This appeared to be related to an orthostatic process. He had transient CPR and he responded to epinephrine and intubation. He has been in refractory shock with multiple vasopressors. Epinephrine has been discontinued. As noted his amylase and lipase were extremely elevated. Notably, his osmole gap is 24 and we initiated treatment for toxic alcohol ingestion this morning. We have also notified poison control and awaiting their return phone call. Review of systems relevant to events:: 05.27.2019: Very labile hemodynamics. Urine output minimal. Creatinine elevated O2 Extraction shows SvO2 at 86%. Wet reading of echo by this author: LV function is good. RV appears acceptable. X-ray shows pleural effusions which were not present on admission 05.26.2019: Of note his calcium has been extremely low and has to be replaced mu ltiple times. His sodium is also low. FeNa yesterday was 3% suggestive of intrinsic renal disease today 7%. Notably he has a significant monocytosis. Spoke with his mother who states that the patient has been sometime in [place]. This raises the suspicion of a parasite disorder especially with a monocytosis. This is such as endocarditis, brucellosis, TB,rickettsial dz, celiac sprue and Listeria need to be considered as well as Loren Torito. He had no stigmata to suggest COVID19 flexion. 4.: Patient sedation has been difficult to control but propofol caused further hypotension. He is currently well sedated. Blood pressure still low and adjustments and vasopressors have been done. In consideration for toxic alcohol ingestion started on fomepizole, folic acid and thiamine. Developed temperature elevation above 103. Broad-spectrum antibiotics have been started. No clear source of infection has been found. - Medications: Vasopressors:: Levophed, vasopressin, neosynephrine, epinephrine. Methylene blue yesterday Sedation:: Dexmedetomidine, benzodiazepine, Dilaudid UNDERWRITING MANAGER Physical Exam Vital Signs: Temp Pulse Resp BP Pulse Ox 99.9 F 109 H 22 H 107/69 95 05/27/19 05:43 05/26/19 21:00 05/27/19 06:12 05/27/19 06:12 05/27/19 06:12 Intake & Output 05/26/19 05/27/19 05/28/19 06:59 06:59 06:59 Intake Total 6653.7 4595.5 Output Total 443 455 Balance 6210.7 4140.5 Weight 80.9 kg 91.8 kg Weight/Height Weight 91.8 kg Height 6 ft General appearance: PRESENT: no acute distress, thin Exam: Intubated, very ill, 48 yo white male. Sedated Head exam: PRESENT: atraumatic, normocephalic, other - Facial anasarca Eye exam: PRESENT: conjunctival injection, conjunctiva pink, PERRLA, scleral icterus. ABSENT: nystagmus Ear exam: ABSENT: bleeding Mouth exam: PRESENT: dry mucosa Neck exam: ABSENT: JVD, lymphadenopathy, thyromegaly, tracheal deviation Respiratory exam: PRESENT: tachypnea, other - Lung sounds not auscultated secondary to the confines of PPE and poor auditory capability of disposable stethoscope. ABSENT: accessory muscle use, unlabored Cardiovascular exam: PRESENT: tachycardia, other - Heart sounds not auscultated secondary to the confines of PPE and poor auditory capability of disposable stethoscope. ABSENT: bradycardia, irregular rhythm Pulses: ABSENT: normal dorsalis pedis pul, +1 pedal pulses bilateral Vascular exam: PRESENT: pallor. ABSENT: normal capillary refill GI/Abdominal exam: PRESENT: ascites, distended - Minimal distention, soft - Moderately soft certainly not tympanic, other - Gastric sounds not auscultated secondary to the confines of PPE and poor auditory capability of disposable stethoscope. ABSENT: rebound, rigid, tenderness Rectal exam: PRESENT: deferred Gentrourinary exam: PRESENT: ecchymosis, scrotal swelling - Significant, indwelling catheter Extremities exam: PRESENT: pedal edema, +2 edema, other - Lysed upper and lower extremity edema Musculoskeletal exam: ABSENT: deformity, dislocation Neurological exam: PRESENT: altered - Patient opens eyes to voice. No movement to noxious stimulus. Psychiatric exam: PRESENT: appropriate affect Skin exam: PRESENT: pallor. ABSENT: cyanosis, erythema, jaundice, mottled, petechiae, rash, urticaria, vesicles Tubes/Lines: PRESENT: Endotracheal Tube, Central Line, Arterial Catheter, Other - [place] type urinary catheter, OG-tube Laboratory/Radiographs Laboratory Results: 05/27/19 03:33 05/27/19 03:33 05/26/19 05/26/19 05/26/19 08:00 08:00 11:00 WBC RBC Hgb Hct MCV MCH MCHC RDW Plt Count Seg Neutrophils % Carbonic Acid 0.85 L 0.83 L HCO3/H2CO3 Ratio 20:1 21:1 ABG pH 7.41 7.44 ABG pCO2 28.2 L 27.6 L ABG pO2 73.9 L 70.4 L ABG HCO3 17.6 L 18.2 L ABG O2 Saturation 95.3 95.0 ABG Base Excess -5.8 -4.7 FiO2 35% 35% Sodium 116.2 L* Potassium 4.0 Chloride 84 L Carbon Dioxide 17 L Anion Gap 15 BUN 31 H Creatinine 3.14 H Est GFR ( Amer) 26 L Glucose 252 H Lactic Acid Calcium 5.1 L* Ionized Calcium Naomie Phosphorus 4.8 H Magnesium 2.1 Amylase Lipase 05/26/19 05/26/19 05/26/19 11:00 13:55 13:55 WBC RBC Hgb Hct MCV MCH MCHC RDW Plt Count Seg Neutrophils % Carbonic Acid HCO3/H2CO3 Ratio ABG pH ABG pCO2 ABG pO2 ABG HCO3 ABG O2 Saturation ABG Base Excess FiO2 Sodium 115.1 L* Potassium 3.9 Chloride 82 L Carbon Dioxide 20 L Anion Gap 13 BUN 31 H Creatinine 3.09 H Est GFR ( Amer) 26 L Glucose 211 H Lactic Acid Calcium 4.9 L* Ionized Calcium Naomie Phosphorus 4.1 Magnesium 1.9 1.8 Amylase Lipase 05/26/19 05/26/19 05/26/19 15:10 17:50 17:50 WBC RBC Hgb Hct MCV MCH MCHC RDW Plt Count Seg Neutrophils % Carbonic Acid 0.90 L HCO3/H2CO3 Ratio 22:1 ABG pH 7.45 ABG pCO2 29.9 L ABG pO2 68.4 L ABG HCO3 20.2 ABG O2 Saturation 94.7 ABG Base Excess -2.8 FiO2 35% Sodium 117.0 L* Potassium 4.1 Chloride 84 L Carbon Dioxide 21 L Anion Gap 12 BUN 32 H Creatinine 3.17 H Est GFR ( Amer) 25 L Glucose 83 Lactic Acid Calcium 4.9 L* Ionized Calcium Naomie Phosphorus 4.1 Magnesium 1.7 Amylase Lipase 05/26/19 05/26/19 05/26/19 18:45 23:14 23:14 WBC RBC Hgb Hct MCV MCH MCHC RDW Plt Count Seg Neutrophils % Carbonic Acid 0.69 L 0.96 L HCO3/H2CO3 Ratio 26:1 21:1 ABG pH 7.52 H 7.42 ABG pCO2 22.8 L 31.8 L ABG pO2 61.7 L 68.4 L ABG HCO3 18.2 L 20.3 ABG O2 Saturation 94.3 94.3 ABG Base Excess -3.2 -3.3 FiO2 40% 45% Sodium 117.1 L* Potassium 4.6 Chloride 81 L Carbon Dioxide 17 L Anion Gap 19 BUN 34 H Creatinine 3.44 H Est GFR ( Amer) 23 L Glucose 127 H Lactic Acid Calcium 4.7 L* Ionized Calcium Naomie 0.70 L Phosphorus 4.9 H Magnesium 1.7 Amylase Lipase 05/27/19 05/27/19 05/27/19 01:58 03:33 03:33 WBC 17.0 H RBC 2.70 L Hgb 9.4 L Hct 27.5 L MCV 102 H MCH 34.9 H MCHC 34.3 RDW 12.9 Plt Count 36 L Seg Neutrophils % Not Reportable Carbonic Acid 1.02 L HCO3/H2CO3 Ratio 16:1 ABG pH 7.31 L ABG pCO2 33.9 L ABG pO2 55.0 L ABG HCO3 16.7 L ABG O2 Saturation 86.3 L ABG Base Excess -8.6 FiO2 45% Sodium 120.0 L* Potassium 4.3 Chloride 85 L Carbon Dioxide 12 L Anion Gap 23 H BUN 31 H Creatinine 3.25 H Est GFR ( Amer) 25 L Glucose 213 H Lactic Acid Calcium 4.9 L* Ionized Calcium Naomie Phosphorus 6.6 H Magnesium 2.6 H Amylase 362 H Lipase 1461.6 H 05/27/19 05/27/19 03:33 03:33 WBC RBC Hgb Hct MCV MCH MCHC RDW Plt Count Seg Neutrophils % Carbonic Acid 1.00 L HCO3/H2CO3 Ratio 12:1 ABG pH 7.20 L* ABG pCO2 33.3 L ABG pO2 89.3 ABG HCO3 12.6 L ABG O2 Saturation 95.0 ABG Base Excess -14.3 FiO2 65% Sodium Potassium Chloride Carbon Dioxide Anion Gap BUN Creatinine Est GFR ( Amer) Glucose Lactic Acid 11.6 H Calcium Ionized Calcium Naomie Phosphorus Magnesium Amylase Lipase 05/24/19 05/24/19 05/24/19 11:08 11:08 21:00 Creatine Kinase CK-MB (CK-2) 3.19 Troponin I 0.013 0.056 NT-Pro-B Natriuret Pep 109 05/24/19 05/25/19 05/25/19 21:00 04:07 09:40 Creatine Kinase 403 H CK-MB (CK-2) Troponin I 0.106 0.122 NT-Pro-B Natriuret Pep 05/27/19 03:33 Creatine Kinase CK-MB (CK-2) Troponin I 0.098 NT-Pro-B Natriuret Pep Impressions: Abdomen/Pelvis CT 05/24/19 00:00 IMPRESSION: Marked fatty liver with a diffuse heterogeneous pattern to the liver but no focal masses. Extensive fluid around the pancreas and extending along the gutters and into the abdomen pelvis. Fluid around the liver and spleen. These findings related either to cirrhosis or pancreatitis. No contrast seen in the ureters on delayed imaging. Question early phase of imaging versus renal tubular dysfunction. Acute Abdomen Series 05/24/19 10:49 IMPRESSION: NO RADIOGRAPHIC EVIDENCE FOR ACUTE ABDOMINAL DISEASE. Head CT 05/24/19 13:32 IMPRESSION: NORMAL BRAIN CT WITHOUT CONTRAST. EVIDENCE OF ACUTE STROKE: NO. Chest/Abdomen CTA 05/24/19 14:09 IMPRESSION: No pulmonary emboli. Fluid in the interstitium of the lungs with basilar opacities and small eff usions. Abdomen Ultrasound 05/25/19 00:00 IMPRESSION: 1. Limited ultrasound of the abdomen with non visualization of the pancreas, IVC, aorta and CBD due to overlying bowel. 2. Increased echogenicity of hepatic parenchyma consistent with diffuse hepatocellular disease (most commonly hepatic steatosis). 3. No hydronephrosis. 4. No splenomegaly. 5. Small amount of ascites. 6. Circumferential thickening of the gallbladder wall. KUB X-Ray 05/27/19 00:00 IMPRESSION: A nasogastric tube tip is seen overlying the left upper quadrant of the abdomen, projecting at the stomach. There is persistent enhancement of both kidneys which could be due to recent contrast administration or contrast nephropathy. All labs, radiographs, diagnostic studies and EKGs were personally reviewed: Yes In addition, reports of radiographic and diagnostic studies were read: Yes Assessment and Plan - Diagnosis (1) Refractory shock Is this a current diagnosis for this admission?: Yes (2) Systemic capillary leak syndrome Is this a current diagnosis for this admission?: Yes (3) Acute renal failure Qualifiers: Acute renal failure type: with acute renal cortical necrosis Qualified Code(s): N17.1 - Acute kidney failure with acute cortical necrosis Is this a current diagnosis for this admission?: Yes (4) High anion gap metabolic acidosis Is this a current diagnosis for this admission?: Yes (5) High serum osmolar gap Is this a current diagnosis for this admission?: Yes (6) Toxic effect of unspecified alcohol Qualifiers: Encounter type: initial encounter Injury intent: accidental or unintentional Qualified Code(s): T51.91XA - Toxic effect of unspecified alcohol, accidental (unintentional), initial encounter Is this a current diagnosis for this admission?: Yes (7) Cardiac arrest Is this a current diagnosis for this admission?: Yes (8) Lactic acidosis Is this a current diagnosis for this admission?: Yes (9) Pancreatitis, alcoholic, acute Is this a current diagnosis for this admission?: Yes Plan Summary: 05.27.2019: Patient is much worse. At this point, I am going to treat with Ivermectin. He is dying and we have no other recourse. His mortality and morbidity prognosis. He has a significant capillary leak like syndrome. There is only a parenteral form of Ivermectin an I am not sure of absorption. I believe this case is justified. Have contacted family (both mother and father). Patient is likely to succumb today. Had lengthy discussion guarding goals of care. Have given terbutaline and Aminophylline and will check levels throughout the day. Respiratory: Patient has worsening hypoxia most likely from compressive atelectasis due to large pleural effusions. These are all related to capillary leak syndrome. No evidence to support pulmonary infection however SARS, 2- CoViD19 testing has been done. No ability to wean secondary to profound hemodynamic instability and hypoxia. Keep plateau pressures less than 30 Infectious: Patient has 1 blood culture with shayy positive organisms in clusters. He is being actively treated with vancomycin and broad-spectrum gram-negative coverage as well as antifungal. I have now added an anti-parasitic in hopes that it will be appropriately absorbed. I have to assume that a parasite might be involved given his massive capillary leak syndrome and and shock. It appeared to worsen after being given steroids which is an indication that a parasite might be present. He did have a significant elevation in monocytes prompted multi organism testing. All of these are still pending so we do not have time to wait for test to return before treating. Appreciate the help of Dr. Herman from infectious disease Cardiac: The patient has a hyperdynamic refractory shock. Mixed-Venous saturation is 86% representing a sepsis looking picture. Ejection fraction is intact. No significant RV dysfunction. He is in vasodilatory shock and responded to methylene blue 24 hours ago. We may be forced to use this again. I discontinued steroids and the concerned that this may have worsened a possible parasitic infection. Hematologic: Patient has mild anemia but came in with extreme hemoconcentration. His platelet count is extremely low and we have discontinue any anticoagulation. This most likely represents a manifestation of an overwhelming infection however HIT panel has been sent. No active bleeding however if drops below 50,000 and/or bleeding occurs will need to transfuse. There is no petechiae or rash to suggest TTP or ITP. Endocrine: Steroids have been stopped. Glucose has been elevated and supplementing with insulin. This is somewhat positive in that he is not in fulminant hepatic failure. Renal: Patient is in acute renal failure with both ATN and cortical necrosis. Patient is a been adjusted for this. This point he is too unstable for transfer for dialysis or renal replacement therapy. Nephrology service also states that he is unstable for renal replacement therapy. Metabolic: Extensive metabolic and electrolyte abnormalities have been addressed. He has a significant metabolic acidosis and is on bicarb drip to maintain a somewhat beneficial pH. We will continue to monitor and support judiciously Alimentary: Not currently being fed. Amylase and lipase improved. I believe his lipase may still be elevated although much improved, very to renal failure and other sources. Neurologic: Patient sedated with only minimal elevation in ammonia level. Will monitor sedation for appropriate affect Sedation: On benzodiazepine and Dilaudid Lines/Tubes: All placed on admission the days ago. Appear clean dry and intact. Other: Patient is very ill and in refractory shock. Have updated the family and will continue to do so. Expect poor outcome. 05.26.2019: Patient has improved slightly in his creatinine has plateaued. Of utmost concern is the source for his refractory shock. Treated with steroids which did not seem to improve significantly. He is on broad-spectrum antibiotics with the addition of clindamycin and micafungin today. The easiest and most convenient diagnosis is gram-positive bacteremia based on 1 blood culture however his presentation seems significant in light of this. The most concerning issue was the monocytosis which may be a harbinger of a parasitic or viral infection. I had a lengthy discussion with infectious disease and hematology today as well. In addition have sent serologic studies for mumps, CMV and gold Quantsferin He did not present with a presentation consistent with COVID however infectious disease states that with the heterogeneous nature of this pandemic it would be at least advisable to check. Added clindamycin on the off chance that the gram-positive represents a toxic shock related bacteremia If possible we will obtain a NAIMA however this cannot be accomplished until his CODE STATUS has been ruled out given the concern for droplets From a respiratory standpoint he is not ready to be weaned yet and has mild degree of hypoxia. His creatinine has plateaued and is now declining. Is oliguric but does not need dialysis. A status has improved on bicarb drip. He does have profound hypocalcemia and hyponatremia which have been replaced. Amylase and lipase are improving significantly and patient's abdomen although firm is not distinctly distended. Abdominal pressures have ranged between 13- 20. He has had no problems with vent pressures. Have moved the patient to a PUI status for SARS, 2-CoViD19. Have added clindamycin for toxin mediation Continue micafungin. On the off chance that this may be a Strongyloides superinfection have sent serologies. Ova and parasites have also been ordered. Patient seen multiple times throughout the day. His blood pressures have improved map is just hovering at 65. His lactic acid is elevated. His Thomas-Synephrine is at 300 mics levo is at 40. There is not much further vasopressor therapy at this point. I suspect that patient will decline further but we are hopeful that he will absorb the ivermectin if in fact a parasite infection is the problem Hematology and the pathology staff to examine red blood smear cells and peripheral smear for any help 05.25.2019: Respiratory: Patient's respiratory status is somewhat quiescent. He required intubation secondary to acute hypoxic respiratory failure associated with his cardiac arrest. His chest x-ray, is quite clear and there is no evidence to support SARS, 2- CoViD19. I would not be surprised that interstitial changes do start to occur with the amount of volume the patient is needed but will continue to watch vigilantly Infectious: Patient's refractory shock may be the result of an infection however the source is still under investigation. Another possible infectious etiology would be Strongyloides superinfection. He does not have all the stigmata of this however if we do not find a source this would be a consideration. He has developed a fever and all of this may be the result of an autoimmune or infectious process. I have broadened out his antibiotics and will include antifungals as well. Cardiac: Bedside critical care echo has been done which shows somewhat normal ejection fraction and a hyperdynamic state. Ordered a more formal echo to rule out any other causes. Due to the degree of pancreatitis I am unable to evaluate his IVC to determine his volume status. He is in refractory shock and may consider the use of methylene blue to reduce the vaso-plegia. Hematologic: Patient has again hemoconcentration. He did not seem to be in a capillary leak syndrome but this may have been the start. Hemoglobin hematocrit are lower but not to the degree that requires transfusion. Other consideration is that this patient may be in the early phases of lympho-cytosis hemophagocytic syndrome. We will continue to monitor. Endocrine: Cortisol level at 72 which is indicative of the degree of stress. This also would predict a higher mortality. He is on Solu-Cortef but will try to reduce the dose as quickly as possible. I have also kept him on this on the off chance that there is some degree of alcohol related liver disease. Discriminate factor is not high Renal: Patient is in oliguric renal failure and have asked the nephrology service for assistance. 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 If that is the case we may be compelled to transfer if we cannot do CRRT in this institution. Metabolic: Pt. has profound metabolic acidosis. He had an elevated anion gap and osmolar gap of 24 raising suspicion for toxic alcohol ingestion. Have started treatment and discussed the case with poison control who have been quite helpful. Changes IV solution to a higher bicarbonate. He may require CRRT given his hemodynamic instability. Continue to monitor closely and repeat labs have been ordered including lactic acid. Complete abdominal ultrasound has been ordered to look at his kidneys and his liver as well as portal flow. Alimentary: Patient has significant pancreatitis but exam is out of proportion to elevation. This may be related to his acidosis and a spurious result. Being said his CT scan findings are suspicious for significant fluid. This raises the diagnostic possibility of capillary leak syndrome which is usually a culmination of malignancy until proven otherwise. Ordered complete abdomen ultrasound and will follow amylase and lipase. Have ordered 4-hour abdominal compartment pressures as well. Neurologic: Need to maintain vigilance for alcohol withdrawal syndrome. Have started thiamine and other supplemental medications as well. Is been extremely difficult to sedate which may be the heralding event for withdrawal. He had complete neurological recovery after his cardiac arrest. Sedation: Maintained on benzodiazepine and Dilaudid as well as Precedex Lines/Tubes: Central venous catheter and arterial lines placed 05/24/2019. Has [place] in place which is necessary given his acute renal dysfunction and acute critical illness Other: Critical Time Critical Time (minutes): 120 Level of Care: ICU -: 1. The care of a critical patient is a dynamic process. This note is a order entry representative synopsis but static in nature. The timeframe for treatments given in order is not necessarily the actual time these treatments may have been done. 2. This patient requires critical care secondary to ongoing requirements for therapy not offered or safe outside the critical care environment. Transfer to a lower level of care will result in altered life or limb morbidity and mortality. 3. Multidisciplinary rounds completed. 4. ABCDE bundle addressed.
[2019-05-27] MEDS: TERBUTALINE SULFATE INJ/PF 1 MG/1 ML SDV SUBCUT SCH ×2 (21:13→21:33)
[2019-05-27] MEDS ORDERED: ALBUMIN HUMAN 500 ML IV ONE ×2 (22:01→22:50)
[2019-05-27] MEDS ORDERED: MIDAZOLAM 2 MG/2 ML INJ IV ONE (22:15)
[2019-05-27] MEDS: MIDAZOLAM HCL 50 MG/100 ML RTUINJ IV PRN (22:37)
[2019-05-27] MEDS ORDERED: VECURONIUM BROMIDE INJ 10 MG VIAL IV ONE (23:48)
[2019-05-28] MEDS ORDERED: VECURONIUM BROMIDE INJ 10 MG VIAL IV ONE (00:30)
[2019-05-28] MEDS ORDERED: IPRATROPIUM/ALBUTEROL 0.5-2.5 MG/3 ML AMPUL NEB ONE ×2 (00:30)
[2019-05-28] MEDS: NORMAL SALINE 250 ML with PHENYLEPHRINE HCL 40 MG IV PRN ×2 (00:32)
[2019-05-28] MEDS ORDERED: ITRACONAZOLE 100 MG CAPSULE NG ONE (01:01)
[2019-05-28] MEDS ORDERED: EPINEPHRINE INJ 1 MG/10 ML DISP.SYRIN ONE ×3 (01:12→01:42)
[2019-05-28] MEDS: NORMAL SALINE 250 ML with NOREPINEPHRINE BITARTRATE 4 MG IV PRN ×2 (01:21)
[2019-05-28 02:38] VITALS: BP 113/56
[2019-05-28] MEDS ORDERED: PHARMACY COMMUNICATION ORDER MC NR (04:00)
[2019-05-28 08:58] LABS: UNC RESP CORONAVIRUS 229E NOT DETECTED; UNC RESP CORONAVIRUS OC43 NOT DETECTED; UNCRES RHINOVIRUS/ENTEROVIRUS NOT DETECTED
[2019-05-28] MEDS ORDERED: IVERMECTIN 3 MG TABLET PO SCH (10:00)
[2019-05-28 11:26] LABS: BLOOD PARASITE THICK SMEAR NO ORGANISMS SEEN
[2019-05-28 11:28] LABS: PATH REVIEW PATHOLOGIST REVIEWED
[2019-05-28 11:29] LABS: BLOOD PARASITE SCREEN RESULT NO ORGANISMS SEEN
--- NOTE | 2019-05-28 14:57 | PDOC PROGRESS REPORT ---
Subjective Progress Note for:: 05/27/19 Subjective:: Patient is no isolated and is being tested for COVID. Patient continues to be critical with persistent hypotension despite 3 vasopressors. Fourth vasopressor is being added at this point. I discussed the case with Dr. Vera. He was able to speak to the mother and there was a history of travel to [facility] so he is considering some parasitic infection and considering starting the patient on ivermectin. At this point the patient is too unstable for any renal replacement therapy and Dr. Vera agree with that. Reason For Visit: CARDIAC ARREST METABOLIC ACIDOSIS Physical Exam Vital Signs: Temp Pulse Resp BP Pulse Ox 99.9 F 109 H 22 H 107/69 93 05/27/19 05:43 05/26/19 21:00 05/27/19 06:12 05/27/19 06:12 05/27/19 08:22 Intake & Output 05/26/19 05/27/19 05/28/19 06:59 06:59 06:59 Intake Total 6653.7 4595.5 500 Output Total 443 455 45 Balance 6210.7 4140.5 455 Weight 80.9 kg 91.8 kg Exam: Physical exam deferred due to COVID-19 isolation. Patient remains to be intubated, sedated with multiple pressors. Results Laboratory Results: 05/27/19 03:33 05/27/19 03:33 05/26/19 05/26/19 05/26/19 11:00 11:00 13:55 WBC RBC Hgb Hct MCV MCH MCHC RDW Plt Count Seg Neutrophils % Carbonic Acid 0.83 L HCO3/H2CO3 Ratio 21:1 ABG pH 7.44 ABG pCO2 27.6 L ABG pO2 70.4 L ABG HCO3 18.2 L ABG O2 Saturation 95.0 ABG Base Excess -4.7 FiO2 35% Sodium 115.1 L* Potassium 3.9 Chloride 82 L Carbon Dioxide 20 L Anion Gap 13 BUN 31 H Creatinine 3.09 H Est GFR ( Amer) 26 L Glucose 211 H Lactic Acid Calcium 4.9 L* Ionized Calcium Naomie Phosphorus 4.1 Magnesium 1.9 Ammonia Amylase Lipase 05/26/19 05/26/19 05/26/19 13:55 15:10 17:50 WBC RBC Hgb Hct MCV MCH MCHC RDW Plt Count Seg Neutrophils % Carbonic Acid 0.90 L HCO3/H2CO3 Ratio 22:1 ABG pH 7.45 ABG pCO2 29.9 L ABG pO2 68.4 L ABG HCO3 20.2 ABG O2 Saturation 94.7 ABG Base Excess -2.8 FiO2 35% Sodium 117.0 L* Potassium 4.1 Chloride 84 L Carbon Dioxide 21 L Anion Gap 12 BUN 32 H Creatinine 3.17 H Est GFR ( Amer) 25 L Glucose 83 Lactic Acid Calcium 4.9 L* Ionized Calcium Naomie Phosphorus 4.1 Magnesium 1.8 Ammonia Amylase Lipase 05/26/19 05/26/19 05/26/19 17:50 18:45 23:14 WBC RBC Hgb Hct MCV MCH MCHC RDW Plt Count Seg Neutrophils % Carbonic Acid 0.69 L 0.96 L HCO3/H2CO3 Ratio 26:1 21:1 ABG pH 7.52 H 7.42 ABG pCO2 22.8 L 31.8 L ABG pO2 61.7 L 68.4 L ABG HCO3 18.2 L 20.3 ABG O2 Saturation 94.3 94.3 ABG Base Excess -3.2 -3.3 FiO2 40% 45% Sodium Potassium Chloride Carbon Dioxide Anion Gap BUN Creatinine Est GFR ( Amer) Glucose Lactic Acid Calcium Ionized Calcium Naomie 0.70 L Phosphorus Magnesium 1.7 Ammonia Amylase Lipase 05/26/19 05/27/19 05/27/19 23:14 01:58 03:33 WBC RBC Hgb Hct MCV MCH MCHC RDW Plt Count Seg Neutrophils % Carbonic Acid 1.02 L HCO3/H2CO3 Ratio 16:1 ABG pH 7.31 L ABG pCO2 33.9 L ABG pO2 55.0 L ABG HCO3 16.7 L ABG O2 Saturation 86.3 L ABG Base Excess -8.6 FiO2 45% Sodium 117.1 L* 120.0 L* Potassium 4.6 4.3 Chloride 81 L 85 L Carbon Dioxide 17 L 12 L Anion Gap 19 23 H BUN 34 H 31 H Creatinine 3.44 H 3.25 H Est GFR ( Amer) 23 L 25 L Glucose 127 H 213 H Lactic Acid Calcium 4.7 L* 4.9 L* Ionized Calcium Naomie Phosphorus 4.9 H 6.6 H Magnesium 1.7 2.6 H Ammonia Amylase 362 H Lipase 1461.6 H 05/27/19 05/27/19 05/27/19 03:33 03:33 03:33 WBC 17.0 H RBC 2.70 L Hgb 9.4 L Hct 27.5 L MCV 102 H MCH 34.9 H MCHC 34.3 RDW 12.9 Plt Count 36 L Seg Neutrophils % Not Reportable Carbonic Acid 1.00 L HCO3/H2CO3 Ratio 12:1 ABG pH 7.20 L* ABG pCO2 33.3 L ABG pO2 89.3 ABG HCO3 12.6 L ABG O2 Saturation 95.0 ABG Base Excess -14.3 FiO2 65% Sodium Potassium Chloride Carbon Dioxide Anion Gap BUN Creatinine Est GFR ( Amer) Glucose Lactic Acid 11.6 H Calcium Ionized Calcium Naomie Phosphorus Magnesium Ammonia Amylase Lipase 05/27/19 05/27/19 07:50 07:50 WBC RBC Hgb Hct MCV MCH MCHC RDW Plt Count Seg Neutrophils % Carbonic Acid 0.79 L HCO3/H2CO3 Ratio 13:1 ABG pH 7.21 L ABG pCO2 26.3 L ABG pO2 78.6 L ABG HCO3 10.4 L ABG O2 Saturation 93.4 L ABG Base Excess -16.0 FiO2 65% Sodium Potassium Chloride Carbon Dioxide Anion Gap BUN Creatinine Est GFR ( Amer) Glucose Lactic Acid Calcium Ionized Calcium Naomie 0.71 L Phosphorus Magnesium Ammonia 37.3 H Amylase Lipase 05/24/19 05/24/19 05/24/19 11:08 11:08 21:00 Creatine Kinase CK-MB (CK-2) 3.19 Troponin I 0.013 0.056 NT-Pro-B Natriuret Pep 109 05/24/19 05/25/19 05/25/19 21:00 04:07 09:40 Creatine Kinase 403 H CK-MB (CK-2) Troponin I 0.106 0.122 NT-Pro-B Natriuret Pep 05/27/19 03:33 Creatine Kinase CK-MB (CK-2) Troponin I 0.098 NT-Pro-B Natriuret Pep Impressions: Abdomen/Pelvis CT 05/24/19 00:00 IMPRESSION: Marked fatty liver with a diffuse heterogeneous pattern to the liver but no focal masses. Extensive fluid around the pancreas and extending along the gutters and into the abdomen pelvis. Fluid around the liver and spleen. These findings related either to cirrhosis or pancreatitis. No contrast seen in the ureters on delayed imaging. Question early phase of imaging versus renal tubular dysfunction. Acute Abdomen Series 05/24/19 10:49 IMPRESSION: NO RADIOGRAPHIC EVIDENCE FOR ACUTE ABDOMINAL DISEASE. Head CT 05/24/19 13:32 IMPRESSION: NORMAL BRAIN CT WITHOUT CONTRAST. EVIDENCE OF ACUTE STROKE: NO. Chest/Abdomen CTA 05/24/19 14:09 IMPRESSION: No pulmonary emboli. Fluid in the interstitium of the lungs with basilar opacities and small effusions. Abdomen Ultrasound 05/25/19 00:00 IMPRESSION: 1. Limited ultrasound of the abdomen with non visualization of the pancreas, IVC, aorta and CBD due to overlying bowel. 2. Increased echogenicity of hepatic parenchyma consistent with diffuse hepatocellular disease (most commonly hepatic steatosis). 3. No hydronephrosis. 4. No splenomegaly. 5. Small amount of ascites. 6. Circumferential thickening of the gallbladder wall. KUB X-Ray 05/27/19 00:00 IMPRESSION: A nasogastric tube tip is seen overlying the left upper quadrant of the abdomen, projecting at the stomach. There is persistent enhancement of both kidneys which could be due to recent contrast administration or contrast nephropathy. Assessment & Plan - Diagnosis (1) Refractory shock Is this a current diagnosis for this admission?: Yes Plan: Patient remains to be on 3 vasopressors and epinephrine is going to be added. He is also on antibiotics and antifungal. [employer] managing. Prognosis is almost grim at this point. (2) Acute kidney injury (SUMAN) with acute tubular necrosis (ATN) Is this a current diagnosis for this admission?: Yes Plan: Remains to be oliguric. Kidney function is getting worse. Patient would still be a candidate for CRRT which is unavailable in our facility and the patient is too unstable to be transferred anyways. Patient will definitely not tolerate intermittent conventional hemodialysis. Dr. Vera, tmr teacher informed. (3) Pancreatitis, alcoholic, acute Is this a current diagnosis for this admission?: Yes Plan: Amylase and lipase levels are still elevated. (4) Metabolic acidosis Is this a current diagnosis for this admission?: Yes Plan: Still on bicarbonate drip (5) Lactic acidosis Is this a current diagnosis for this admission?: Yes (6) Dehydration Is this a current diagnosis for this admission?: Yes Plan: Has been fluid resuscitated. (7) Hypotension Is this a current diagnosis for this admission?: Yes Plan: Resistant to vasopressors as above. (8) Hyponatremia Is this a current diagnosis for this admission?: Yes Plan: Due to hypotonic fluids. Discussed with Dr. Vera to see if we can have his drips mixed in saline instead of D5 solutions. Hypertonic saline cautious in fusion can help. (9) Hypocalcemia Is this a current diagnosis for this admission?: Yes Plan: On continuous replacements per tmr teacher. (10) Intractable nausea and vomiting Is this a current diagnosis for this admission?: Yes - Notes Notes: Prognosis is very poor in this patient. - Time Time with patient: 15-25 minutes
[2019-05-29 07:58] LABS: CMV DNA PCR QUANT Negative (Negative)
--- NOTE | 2019-06-08 13:11 | Progress Note ---
Provider Note Provider Note: I was notified around midnight that Mr Downs had elevated peak inspiratory pressures on the ventilator for which I went to evaluate the patient. His peak inspiratory pressures were 48-50 with a plateau pressure of 40. I was unaware that he was already on 100% FiO2 and Peep 10. The patient was suctioned without any evidence of mucus plug contributing to pressures, he was adequately sedated without biting on the endotracheal tube, the ETT was not kinked, the inline filter was not clogged/saturated, and there was no fluid in the circuit. No tracheal deviation or subcutaneous emphysema present. Despite changing the ventilator settings to a lower tidal volume 6 mL/kg of ideal body weight per ARDS guidelines, attempting mode change to lung-protective pressure control, increasing the Peep, attempting APRV with 4:1 inverse I:E ratio, and even administering Vecuronium, the patient remained with refractory hypoxia SPO2 78% and a PiP of 44-46 with Pplat of 36 which was the best I could achieve. To note, the patient's chest wall and abdomen were tight from anasarca, resultant of capillary leak syndrome. Though patient was already maxed out on Epinephrine, Norepinephrine, Phenylephrine, and Vasopressin for >12 hrs, his MAP remained >65. Unfortunately, decompressive laparotomy with pleural thoracostomy tubes would likely not benefit Mr Downs given the chest wall anasarca alone, not to mention with the patient being a COVID-19 person under investigation (PUI), would risk aerosolization of the virus in bodily fluids to those involved in the procedure room, especially if iatrogenic injury were to occur to the lungs. Parasitic as well as COVID-19 lab results have yet to result, though patient did receive empiric Ivermectin in addition to the very broad empiric antibiotics he was already on as an attempt to halt clinical deterioration. Discussed the above with Dr Bloom with the plan to notify the family of their son's impending . Update: Spoke to patient's mother, Valerie, as well as father, Ramiro johnson, who both agree to make their son a [id number]-Xuptvttdiis (DNR) at this time, unders tanding he is actively dying. They also both expressed they would like an autopsy performed to determine cause of as well as request that his body be donated to science. Will inform Dr Bloom of their request. Critical care time spent: 50 minutes
--- NOTE | 2019-06-10 01:39 | Progress Note ---
Provider Note Provider Note: Date/Time this encounter began: 05/26/2019 21:30 pm Patient well known to service, see HPI on critical care progress notes. RN informed me that Mr Downs was hypotensive for which she wanted clarification of BP goals/cutoffs. To note, patient's condition deteriorated earlier today with increasing Phenylephrine requirements for which Norepinephrine and Vasopressin infusions were also added. Patient was already on steroids. Throughout the early overnight hours, the patient's vasopressor requirements continued to increase despite IV crystalloid/colloid boluses. Eventually Epinephrine infusion was added and has since required maximum infusion dose. POCUS performed twice overnight demonstrated hypovolemia with respirophasic changes of both ventricles and the hepatic veins. Unfortunately, I was unable to visualize the IVC due to edema/gas in both the sub-xiphoid and hepatic windows. No cardiac ventricular wall motion abnormalities were observed. A 12-lead electrocardiogram was performed which is not actually junctional tachycardia, rather it is sinus tachycardia as you can see some p waves present in certain leads and I visualize complete atrial contraction on POCUS. There is very low voltage, though no significant ST elevation/depression noted. An elevated troponin level was noted for which I suspect a troponin leak from hypotension/hypovolemia as there was no evidence of overt cardiac ischemia/infarction at the time on EKG along with no ventricular wall motion abnormalities on POCUS. Hypocalcemia was being corrected with repletion. Blood Cx's were performed within the past 48 hrs with new respiratory specimens sent within the past 24 hrs, therefore repeat panculture was not performed at this time and would not yield information in a timely fashion to be of assistance right now. Has good coverage from empiric antibiotic standpoint. Awaiting results of parasitic blood test to r/o strongyloides. An ABG was performed demonstrating metabolic acidemia with a pH 7.20 for which Mr Downs for which the bicarb infusion rate was increased given the need for volume. A CXR was performed demonstrating increasing bilateral pleural effusions, no pneumothorax. No free air on upright KUB indicating perforated viscus. Unable to repeat an abdominal CT for pancreatic pseudocyst versus abscess at this time given hemodynamic instability and SUMAN preventing IV contrast exposure. Milrinone was considered in case the patient has severe pulmonary HTN for which the hemodynamics would improve, but I worried about further vasodilitation by reducing PVR which may be of more harm than good. Lasix gtt was also entertained but I do not feel the patient is on the right side of the starling curve at this time, especially in light of POCUS findings. A transthoracic echocardiogram was ordered for which I spoke with Dr Jeff Gage, Cardiology, at 04:30 am to approve calling in the tire technician (whom I also spoke to at 04:40 am). While awaiting the proced tech's arrival, passive leg raise was performed with increase in SBP by 8 mm Hg for which another 500 mL NS fluid bolus was administered with improvement in blood pressure. The peep was also decreased from 10 to 8 to have less effect on preload. Plan: Will continue to monitor with support as able and update Dr Bloom. Follow up echocardiogram. Critical Care Time: 160 minutes of ongoing critical care time was spent throughout the night assessing/reassessing the patient, POCUS, self-interpreting EKG/CXR/KUB, ordering/evaluating lab work, and developing plan of care. Billing code [id number] on date 05/26/2019
--- NOTE | 2019-06-19 05:12 | Death Summary ---
Summary Date : 05/28/19 Time of :: 03:26 Autopsy: Yes - at the request of patient's mother and father Resuscitation Status: Do Not Resuscitate - Final Diagnosis (1) Cardiac arrest Is this a current diagnosis for this admission?: Yes (2) Acute respiratory failure with hypoxia Is this a current diagnosis for this admission?: Yes (3) Refractory shock Is this a current diagnosis for this admission?: Yes (4) Pancreatitis, alcoholic, acute Is this a current diagnosis for this admission?: Yes (5) Acute kidney injury (SUMAN) with acute tubular necrosis (ATN) Is this a current diagnosis for this admission?: Yes (6) High anion gap metabolic acidosis Is this a current diagnosis for this admission?: Yes (7) Hepatic steatosis Is this a current diagnosis for this admission?: Yes (8) High serum osmolar gap Is this a current diagnosis for this admission?: Yes (9) Hypocalcemia Is this a current diagnosis for this admission?: Yes (10) Hyponatremia Is this a current diagnosis for this admission?: Yes (11) Lactic acidosis Is this a current diagnosis for this admission?: Yes (12) Sinus tachycardia Is this a current diagnosis for this admission?: Yes (13) Systemic capillary leak syndrome Is this a current diagnosis for this admission?: Yes (14) Toxic effect of unspecified alcohol Is this a current diagnosis for this admission?: Yes Hospital Course:: HPI: Mr Downs is a 48 year-old male with a past medical history of hyperlipidemia and daily alcohol abuse who presented to [facility] via EMS on 05/24/2019 with tachycardia, hypotension, and tachypnea with a chief complaint of epigastric abdominal pain following the consumption of [place] food the previous evening followed by vomiting approximately 5 times. Labs revealed leukocytosis with a left shift, hemoconcentrated H&H, thrombocytopenia, hyponatremia, philip vated serum creatinine, hyperphosphatemia, hypocalcemia, hypomagnesemia, elevated LFT's, hypertriglyceridemia, low albumin, profound lactic acidemia, and significantly elevated amylase/lipase with a serum EtOH level of 158. To note, the patient consumes approximately 3-4 beers daily per chart documentation. CT of the abdomen/pelvis demonstrated pancreatitis, marked hepatic steatosis, and possibility of renal tubular dysfunction. CTA chest negative for PE with minimal posterior bibasilar atelectasis. Head CT without any acute intracranial process. Limited view abdominal ultrasound with a small amount of ascites and circumferential gall bladder wall thickening without any evidence of hydronephrosis. Mr Downs's condition deteriorated in the ED receiving 5L of IV crystalloid solution and initiation of a Norepinephrine infusion for hypotension. He ultimately ended up experiencing cardiac arrest for which he was intubated for respiratory failure, subsequently achieving ROSC. Mr Downs was the n transferred to ICU. Hospital course: Mr Downs originally demonstrated neurological recovery following his cardiac arrest in the ED. He received Thiamine and Folate for chronic alcohol abuse and concern for the development of alcohol withdrawal. Due to severity of illness, Mr Downs was placed in a medically induced coma to tolerate life-sustaining treatment, which was very difficult to obtain likely due to his history of drinking. His pulmonary compliance worsened likely from the quantity of IV fluids received for hypovolemia in setting of capillary leaking resulting in abdominal and chest wall edema as well as developed pleural effusions. He developed refractory shock very quickly ending up on maximum doses of four different vasopressor agents, IV steroids, and received a dose of methylene blue for vasoplegia. A transthoracic echocardiogram was performed demonstrating a normal ejection fraction, mild pulmonary hypertension, and no significant valvular abnormalities. No cardiac ischemia or infarction by EKG. Mr Downs's abdomen was somewhat firm, but his abdominal compartment pressures were not sustained >20 mm Hg. He was not able to tolerate enteral nutrition given the amount of vasopressor support. His pancreatitis appeared to be improving given the significant decrease in his pancreatic biomarkers. He was placed on a bicarbonate infusion for his metabolic acidosis. There was concern for ethylene glycol toxicity. Nephrology was consulted for worsening oliguric renal failure for which Mr Downs would require continuous renal replacement therapy but his hemodynamics would not be able to tolerate given that he was on maximum dose of multiple vasopressors, as well as was experiencing capillary leak syndrome causing ongoing hypovolemia. He received treatment for hypocalcemia and hyponatremia, treating with many doses of IV Calcium as well as 3% hypertonic saline. Other than normal linda and a contaminated blood culture, Mr Downs never had an identified infectious cause of illness though it is important to note he received empiric antibiotic therapy since arriving in the ED due to severity of illness. He received coverage for gram negative, gram positive, aerobe/anaerobe, and fungal organisms. Consultation was performed with infectious disease recommending testing for COVID-19 and other viral illness given his monocytosis for which the tests returned negative. Stool for ova and parasites was ordered. A blood parasite test was performed given his remote travel history to [place] and [place] for which he was empirically treated with Ivermectin, also returning negative. A HIT panel was negative when working up the cause of his thrombocytopenia. He never required blood transfusion. Unfortunately, Mr Downs developed worsening acidosis despite bicarbonate infusion and refractory hypoxia that was no longer able to be resolved for which his family was informed and the decision was made by both his mother Valerie as well as father Ramiro Serrano to make their son a DNR. His mother was able to visit him before his on 05/28/2019 at 03:26 AM. 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
--- NOTE | 2019-07-10 17:17 | PDOC CRITICAL CARE PROG REPORT ---
General Date:: 05/25/19 ICU Day:: 2 Ventilator Day:: 2 Hospital Day:: 2 Resuscitation Status: Full Code Medical Power of Wet Crown Blocking Operator: Mother Events in the past 12 to 24 Hours:: 05.25.2019: Patient admitted through the emergency room last night as noted by the H&P. During the initiation of chest x-ray after line placement he went into what appeared to be a cardiac arrest. This appeared to be related to an orthostatic process. He had transient CPR and he responded to epinephrine and intubation. He has been in refractory shock with multiple vasopressors. Epinephrine has been discontinued. As noted his amylase and lipase were extremely elevated. Notably, his osmole gap is 24 and we initiated treatment for toxic alcohol ingestion this morning. We have also notified poison control and awaiting their return phone call. Review of systems relevant to events:: 05.15.2019: Patient sedation has been difficult to control but propofol caused further hypotension. He is currently well sedated. Blood pressure still low and adjustments and vasopressors have been done. In consideration for toxic alcohol ingestion started on fomepizole folic acid and thiamine. Developed temperature elevation above 103. Broad-spectrum antibiotics have been started. No clear source of infection has been found. - Medications: Medications reviewed and adjusted accordingly: Yes Vasopressors:: Levophed, vasopressin, neosynephrine Sedation:: Dexmedetomidine, benzodiazepine, Dilaudid MENTAL HEALTH COUNSELOR Physical Exam Vital Signs: Temp Pulse Resp BP Pulse Ox 99.9 F 28 L 26 H 94/52 L 98 05/25/19 04:00 05/24/19 21:15 05/25/19 06:11 05/25/19 06:11 05/25/19 06:00 Intake & Output 05/24/19 05/25/19 05/26/19 06:59 06:59 06:59 Intake Total 4674 5 Output Total 236 Balance 4438 5 Weight 74.6 kg Weight/Height Weight 74.6 kg Height 6 ft General appearance: PRESENT: no acute distress, disheveled, thin Exam: Debated ill but nontoxic 48-year-old male slightly agitated with stimulus but no active distress when untouched Head exam: PRESENT: atraumatic, normocephalic Eye exam: PRESENT: conjunctiva pink, PERRLA. ABSENT: nystagmus, scleral icterus Mouth exam: PRESENT: dry mucosa Teeth exam: PRESENT: edentulous Neck exam: PRESENT: other - Right IJ central venous catheter clean dry and intact. ABSENT: carotid bruit, JVD, lymphadenopathy, thyromegaly, tracheal deviation Respiratory exam: PRESENT: clear to auscultation dmitri, unlabored, other. ABSENT: accessory muscle use, tachypnea Cardiovascular exam: PRESENT: RRR, tachycardia, other Pulses: PRESENT: +1 pedal pulses bilateral - Obdulio GI/Abdominal exam: PRESENT: ascites - Mild ascites not significant, diminished bowel sounds, firm, other - Patient's abdomen is only minimally firm no significant distention. There is minimal tenderness elicited when palpated. Intra-abdominal compartment pressure 13 mmHg. ABSENT: tenderness Rectal exam: PRESENT: deferred Gentrourinary exam: PRESENT: indwelling catheter Extremities exam: ABSENT: pedal edema Musculoskeletal exam: ABSENT: deformity, dislocation Neurological exam: PRESENT: altered - Sedated deeply secondary to agitation Psychiatric exam: ABSENT: agitated Skin exam: PRESENT: dry, intact, normal color, warm. ABSENT: cyanosis, jaundice, mottled, pallor, petechiae, rash Tubes/Lines: PRESENT: Endotracheal Tube, Central Line, Arterial Catheter, Other - OG tube, [place] type urinary catheter Laboratory/Radiographs Laboratory Results: 05/25/19 05:43 05/25/19 05:43 05/24/19 05/24/19 05/24/19 09:42 09:42 09:42 WBC 13.4 H RBC 5.28 Hgb 18.4 H Hct 54.1 H MCV 102 H MCH 34.9 H MCHC 34.1 RDW 13.0 Plt Count 94 L Seg Neutrophils % Not Reportable Carbonic Acid HCO3/H2CO3 Ratio ABG pH ABG pCO2 ABG pO2 ABG HCO3 ABG O2 Saturation ABG Base Excess FiO2 Sodium Cancelled Potassium Cancelled Chloride Cancelled Carbon Dioxide Cancelled Anion Gap Cancelled BUN Cancelled Creatinine Cancelled Est GFR ( Amer) Cancelled Est GFR (Non-Af Amer) Cancelled Glucose Cancelled Serum Osmolality Lactic Acid 13.2 H Calcium Cancelled Phosphorus Magnesium Ferritin Total Bilirubin Cancelled AST Cancelled Alkaline Phosphatase Cancelled Ammonia C-Reactive Protein Total Protein Cancelled Albumin Cancelled Triglycerides Cholesterol LDL Cholesterol Direct VLDL Cholesterol HDL Cholesterol Amylase Lipase Cancelled TSH Urine Color Urine Appearance Urine pH Ur Specific [place] Urine Protein Urine Glucose (UA) Urine Ketones Urine Blood Urine Nitrite Ur Leukocyte Esterase Urine WBC (Auto) Urine RBC (Auto) Urine Osmolality 05/24/19 05/24/19 05/24/19 11:08 11:08 11:08 WBC RBC Hgb Hct MCV MCH MCHC RDW Plt Count Seg Neutrophils % Carbonic Acid HCO3/H2CO3 Ratio ABG pH ABG pCO2 ABG pO2 ABG HCO3 ABG O2 Saturation ABG Base Excess FiO2 Sodium 130.9 L Potassium 4.3 Chloride 94 L Carbon Dioxide 15 L Anion Gap 22 H BUN 12 Creatinine 1.37 H Est GFR ( Amer) > 60 Est GFR (Non-Af Amer) Glucose 129 H Serum Osmolality Lactic Acid Calcium 8.3 L Phosphorus 5.4 H Magnesium 1.2 L* Ferritin Total Bilirubin 2.0 H AST 191 H Alkaline Phosphatase 128 H Ammonia C-Reactive Protein Total Protein 5.7 L Albumin 2.8 L Triglycerides 166 H Cholesterol 275.65 H LDL Cholesterol Direct 202 H VLDL Cholesterol 33.2 H HDL Cholesterol 51 Amylase Lipase 01057.0 H TSH Urine Color Urine Appearance Urine pH Ur Specific [place] Urine Protein Urine Glucose (UA) Urine Ketones Urine Blood Urine Nitrite Ur Leukocyte Esterase Urine WBC (Auto) Urine RBC (Auto) Urine Osmolality 05/24/19 05/24/19 05/24/19 11:08 14:03 14:03 WBC RBC Hgb Hct MCV MCH MCHC RDW Plt Count Seg Neutrophils % Carbonic Acid HCO3/H2CO3 Ratio ABG pH ABG pCO2 ABG pO2 ABG HCO3 ABG O2 Saturation ABG Base Excess FiO2 Sodium Potassium Chloride Carbon Dioxide Anion Gap BUN Creatinine Est GFR ( Amer) Est GFR (Non-Af Amer) Glucose Serum Osmolality Lactic Acid Calcium Phosphorus Magnesium Ferritin Total Bilirubin AST Alkaline Phosphatase Ammonia C-Reactive Protein Total Protein Albumin Triglycerides Cholesterol LDL Cholesterol Direct VLDL Cholesterol HDL Cholesterol Amylase Lipase TSH 4.61 Urine Color FADI Urine Appearance TURBID Urine pH 5.0 Ur Specific [place] 1.018 Urine Protein 100 H Urine Glucose (UA) 50 H Urine Ketones TRACE H Urine Blood LARGE H Urine Nitrite NEGATIVE Ur Leukocyte Esterase NEGATIVE Urine WBC (Auto) 1 Urine RBC (Auto) 1 Urine Osmolality Cancelled 05/24/19 05/24/19 05/24/19 14:03 15:29 15:34 WBC RBC Hgb Hct MCV MCH MCHC RDW Plt Count Seg Neutrophils % Carbonic Acid HCO3/H2CO3 Ratio ABG pH ABG pCO2 ABG pO2 ABG HCO3 ABG O2 Saturation ABG Base Excess FiO2 Sodium Potassium Chloride Carbon Dioxide Anion Gap BUN Creatinine Est GFR ( Amer) Est GFR (Non-Af Amer) Glucose Serum Osmolality Lactic Acid 13.1 H Calcium Phosphorus Magnesium Ferritin Total Bilirubin AST Alkaline Phosphatase Ammonia C-Reactive Protein Total Protein Albumin Triglycerides Cholesterol LDL Cholesterol Direct VLDL Cholesterol HDL Cholesterol Amylase Lipase 18463.6 H TSH Urine Color Cancelled Urine Appearance Cancelled Urine pH Cancelled Ur Specific [place] Cancelled Urine Protein Cancelled Urine Glucose (UA) Cancelled Urine Ketones Cancelled Urine Blood Cancelled Urine Nitrite Cancelled Ur Leukocyte Esterase Cancelled Urine WBC (Auto) Cancelled Urine RBC (Auto) Cancelled Urine Osmolality 05/24/19 05/24/19 05/24/19 16:45 21:00 21:00 WBC RBC Hgb Hct MCV MCH MCHC RDW Plt Count Seg Neutrophils % Carbonic Acid HCO3/H2CO3 Ratio ABG pH ABG pCO2 ABG pO2 ABG HCO3 ABG O2 Saturation ABG Base Excess FiO2 Sodium Potassium Chloride Carbon Dioxide Anion Gap BUN Creatinine Est GFR ( Amer) Est GFR (Non-Af Amer) Glucose Serum Osmolality Lactic Acid Calcium Phosphorus Magnesium Ferritin 1020.00 H Total Bilirubin AST Alkaline Phosphatase Ammonia 17.6 C-Reactive Protein 46.8 H Total Protein Albumin Triglycerides 133 Cholesterol LDL Cholesterol Direct VLDL Cholesterol HDL Cholesterol Amylase 2322 H Lipase TSH Urine Color Urine Appearance Urine pH Ur Specific [place] Urine Protein Urine Glucose (UA) Urine Ketones Urine Blood Urine Nitrite Ur Leukocyte Esterase Urine WBC (Auto) Urine RBC (Auto) Urine Osmolality 05/24/19 05/24/19 05/25/19 21:00 21:32 01:23 WBC RBC Hgb Hct MCV MCH MCHC RDW Plt Count Seg Neutrophils % Carbonic Acid 0.91 L HCO3/H2CO3 Ratio 13:1 ABG pH 7.24 L ABG pCO2 30.2 L ABG pO2 83.3 ABG HCO3 12.6 L ABG O2 Saturation 94.6 ABG Base Excess -13.5 FiO2 40% Sodium 126.2 L Potassium 3.8 Chloride 95 L Carbon Dioxide 14 L Anion Gap 17 BUN 20 Creatinine 2.12 H Est GFR ( Amer) 40 L Est GFR (Non-Af Amer) Glucose 240 H Serum Osmolality 292 Lactic Acid Calcium 6.3 L* Phosphorus Magnesium 2.5 H D Ferritin Total Bilirubin AST Alkaline Phosphatase Ammonia C-Reactive Protein Total Protein Albumin Triglycerides Cholesterol LDL Cholesterol Direct VLDL Cholesterol HDL Cholesterol Amylase Lipase TSH Urine Color Urine Appearance Urine pH Ur Specific [place] Urine Protein Urine Glucose (UA) Urine Ketones Urine Blood Urine Nitrite Ur Leukocyte Esterase Urine WBC (Auto) Urine RBC (Auto) Urine Osmolality 05/25/19 05/25/19 05/25/19 05:08 05:43 05:43 WBC 12.7 H RBC 3.68 L Hgb 12.8 L D Hct 37.5 L MCV 102 H MCH 34.7 H MCHC 34.0 RDW 12.7 Plt Count 55 L Seg Neutrophils % Not Reportable Carbonic Acid HCO3/H2CO3 Ratio ABG pH ABG pCO2 ABG pO2 ABG HCO3 ABG O2 Saturation ABG Base Excess FiO2 Sodium 123.8 L Potassium 4.1 Chloride 94 L Carbon Dioxide 14 L Anion Gap 16 BUN 21 H Creatinine 2.51 H Est GFR ( Amer) 33 L Est GFR (Non-Af Amer) Glucose 301 H Serum Osmolality Lactic Acid Calcium 6.1 L* Phosphorus 4.6 H Magnesium 2.1 Ferritin Total Bilirubin 4.0 H AST 175 H Alkaline Phosphatase 58 Ammonia C-Reactive Protein Total Protein 4.5 L Albumin 2.2 L Triglycerides 222 H Cholesterol 171.10 LDL Cholesterol Direct 93 VLDL Cholesterol 44.4 H HDL Cholesterol 29 L Amylase 2112 H Lipase 28382.9 H TSH Urine Color Urine Appearance Urine pH Ur Specific [place] Urine Protein Urine Glucose (UA) Urine Ketones Urine Blood Urine Nitrite Ur Leukocyte Esterase Urine WBC (Auto) Urine RBC (Auto) Urine Osmolality 293 L 05/25/19 05:43 WBC RBC Hgb Hct MCV MCH MCHC RDW Plt Count Seg Neutrophils % Carbonic Acid HCO3/H2CO3 Ratio ABG pH ABG pCO2 ABG pO2 ABG HCO3 ABG O2 Saturation ABG Base Excess FiO2 Sodium Potassium Chloride Carbon Dioxide Anion Gap BUN Creatinine Est GFR ( Amer) Est GFR (Non-Af Amer) Glucose Serum Osmolality Lactic Acid Calcium Phosphorus Magnesium Ferritin Total Bilirubin AST Alkaline Phosphatase Ammonia 15.5 C-Reactive Protein Total Protein Albumin Triglycerides Cholesterol LDL Cholesterol Direct VLDL Cholesterol HDL Cholesterol Amylase Lipase TSH Urine Color Urine Appearance Urine pH Ur Specific [place] Urine Protein Urine Glucose (UA) Urine Ketones Urine Blood Urine Nitrite Ur Leukocyte Esterase Urine WBC (Auto) Urine RBC (Auto) Urine Osmolality 05/24/19 05/24/19 05/24/19 11:08 11:08 21:00 Creatine Kinase CK-MB (CK-2) 3.19 Troponin I 0.013 0.056 NT-Pro-B Natriuret Pep 109 05/24/19 05/25/19 21:00 04:07 Creatine Kinase 403 H CK-MB (CK-2) Troponin I 0.106 NT-Pro-B Natriuret Pep Impressions: Abdomen/Pelvis CT 05/24/19 00:00 IMPRESSION: Marked fatty liver with a diffuse heterogeneous pattern to the liver but no focal masses. Extensive fluid around the pancreas and extending along the gutters and into the abdomen pelvis. Fluid around the liver and spleen. These findings related either to cirrhosis or pancreatitis. No contrast seen in the ureters on delayed imaging. Question early phase of imaging versus renal tubular dysfunction. Acute Abdomen Series 05/24/19 10:49 IMPRESSION: NO RADIOGRAPHIC EVIDENCE FOR ACUTE ABDOMINAL DISEASE. Head CT 05/24/19 13:32 IMPRESSION: NORMAL BRAIN CT WITHOUT CONTRAST. EVIDENCE OF ACUTE STROKE: NO. Chest/Abdomen CTA 05/24/19 14:09 IMPRESSION: No pulmonary emboli. Fluid in the interstitium of the lungs with basilar opacities and small effusions. Chest X-Ray 05/25/19 06:00 IMPRESSION: Advancement of the ET tube which is in good position with otherwise no significant change. All labs, radiographs, diagnostic studies and EKGs were personally reviewed: Yes In addition, reports of radiographic and diagnostic studies were read: Yes Assessment and Plan - Diagnosis (1) Refractory shock Is this a current diagnosis for this admission?: Yes (2) Pancreatitis, alcoholic, acute Is this a current diagnosis for this admission?: Yes (3) Acute renal failure Qualifiers: Acute renal failure type: with acute renal cortical necrosis Qualified Code(s): N17.1 - Acute kidney failure with acute cortical necrosis Is this a current diagnosis for this admission?: Yes (4) High anion gap metabolic acidosis Is this a current diagnosis for this admission?: Yes (5) High serum osmolar gap Is this a current diagnosis for this admission?: Yes (6) Toxic effect of unspecified alcohol Qualifiers: Encounter type: initial encounter Injury intent: accidental or unintentional Qualified Code(s): T51.91XA - Toxic effect of unspecified alcohol, accidental (unintentional), initial encounter Is this a current diagnosis for this admission?: Yes Plan: Suspected (7) Cardiac arrest Is this a current diagnosis for this admission?: Yes Plan: transient. ROSC with intact neurologic exam. Did not need Therapeutic hypothermia (8) Lactic acidosis Is this a current diagnosis for this admission?: Yes Plan Summary: Respiratory: Patient's respiratory status is somewhat quiescent. He required intubation secondary to acute hypoxic respiratory failure associated with his cardiac arrest. His chest x-ray, is quite clear and there is no evidence to support SARS, 2- CoViD19. I would not be surprised that interstitial changes do start to occur with the amount of volume the patient is needed but will continue to watch vigilantly Infectious: Patient's refractory shock may be the result of an infection however the source is still under investigation. Another possible infectious etiology would be Strongyloides superinfection. He does not have all the stigmata of this however if we do not find a source this would be a consideration. He has developed a fever and all of this may be the result of an autoimmune or infec tious process. I have broadened out his antibiotics and will include antifungals as well. Cardiac: Bedside critical care echo has been done which shows somewhat normal ejection fraction and a hyperdynamic state. Ordered a more formal echo to rule out any other causes. Due to the degree of pancreatitis I am unable to evaluate his IVC to determine his volume status. He is in refractory shock and may consider the use of methylene blue to reduce the vaso-plegia. Hematologic: Patient has again hemoconcentration. He did not seem to be in a capillary leak syndrome but this may have been the start. Hemoglobin hematocrit are lower but not to the degree that requires transfusion. Other consideration is that this patient may be in the early phases of lympho-cytosis hemophagocytic syndrome. We will continue to monitor. Endocrine: Cortisol level at 72 which is indicative of the degree of stress. This also would predict a higher mortality. He is on Solu-Cortef but will try to reduce the dose as quickly as possible. I have also kept him on this on the off chance that there is some degree of alcohol related liver disease. Discriminate factor is not high Renal: Patient is in oliguric renal failure and have asked the nephrology service for assistance. 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 If that is the case we may be compelled to transfer if we cannot do CRRT in this institution. Metabolic: Pt. has profound metabolic acidosis. He had an elevated anion gap and osmolar gap of 24 raising suspicion for toxic alcohol ingestion. Have started treatment and discussed the case with poison control who have been quite helpful. Changes IV solution to a higher bicarbonate. He may require CRRT given his hemodynamic instability. Continue to monitor closely and repeat labs have been ordered including lactic acid. Complete abdominal ultrasound has been ordered to look at his kidneys and his liver as well as portal flow. Alimentary: Patient has significant pancreatitis but exam is out of proportion to elevation. This may be related to his acidosis and a spurious result. Being said his CT scan findings are suspicious for significant fluid. This raises the diagnostic possibility of capillary leak syndrome which is usually a culmination of malignancy until proven otherwise. Ordered complete abdomen ultrasound and will follow amylase and lipase. Have ordered 4-hour abdominal compartment pressures as well. Neurologic: Need to maintain vigilance for alcohol withdrawal syndrome. Have started thiamine and other supplemental medications as well. Is been extremely difficult to sedate which may be the heralding event for withdrawal. He had complete neurological recovery after his cardiac arrest. Sedation: Maintained on benzodiazepine and Dilaudid as well as Precedex Lines/Tubes: Central venous catheter and arterial lines placed 05/24/2019. Has [place] in place which is necessary given his acute renal dysfunction and acute critical illness Other: Critical Time Critical Time (minutes): 90 Level of Care: ICU -: 1. The care of a critical patient is a dynamic process. This note is a account maintenance representative synopsis but static in nature. The timeframe for treatments given in order is not necessarily the actual time these treatments may have been done. 2. This patient requires critical care secondary to ongoing requirements for therapy not offered or safe outside the critical care environment. Transfer to a lower level of care will result in altered life or limb morbidity and mortality. 3. Multidisciplinary rounds completed. 4. ABCDE bundle addressed.
--- NOTE | 2019-07-10 17:29 | CRITICAL CARE ADMISSION REPORT ---
HPI Date:: 05/24/19 Time:: 18:30 HPI: MEHRDAD HERMOSILLO II is a 48 year old male with past history significant alcohol use who presented to the emergency department this evening with mild abdominal discomfort but significant malaise that he could not quantify. Critical care team was called to the ER because they could not obtain IV access and he was tachycardic. He was also confused but was able to answer occasional questions. Review of system review of systems could not be adequately obtained. He stated that he was more concerned about his vomiting after eating a known known amount of [place] food. He also need vague reference to the inability to urinate for 1 to 2 days. He was extremely tachycardic and a central line was placed prior to him being admitted. During the intervening time for chest x-ray he was laid flat for the central line and then placed upright and went into cardiac arrest. He received epinephrine and a round of CPR and responded to therapy. Vasopressor therapy was also started as well as volume. CT scan was done as well as amylase and lipase indicative of what appeared to be pancreatitis which was quite significant. We had ascertained that the patient had had a significant alcohol intake and history. This was confirmed when the family was finally contacted. SARS-CoV-2 testing has been undertaken and he has been placed in a protective environment. - Diagnosis/Plan (1) Cardiac arrest Is this a current diagnosis for this admission?: Yes (2) Refractory shock Is this a current diagnosis for this admission?: Yes (3) Pancreatitis, alcoholic, acute Is this a current diagnosis for this admission?: Yes (4) Acute renal failure Qualifiers: Acute renal failure type: with acute renal cortical necrosis Qualified Code(s): N17.1 - Acute kidney failure with acute cortical necrosis Is this a current diagnosis for this admission?: Yes (5) High anion gap metabolic acidosis Is this a current diagnosis for this admission?: Yes (6) High serum osmolar gap Is this a current diagnosis for this admission?: Yes (7) Toxic effect of unspecified alcohol Qualifiers: Encounter type: initial encounter Injury intent: accidental or unintentional Qualified Code(s): T51.91XA - Toxic effect of unspecified alcohol, accidental (unintentional), initial encounter Is this a current diagnosis for this admission?: Yes (8) Lactic acidosis Is this a current diagnosis for this admission?: Yes Plan Summary: Patient to be admitted to the ICU. Central line is already been placed for volume replacement. Adjust mechanical ventilator settings to support a higher PEEP to prevent atelectasis from pancreatitis. No antibiotics at this time and will consider early enteral feedings. Watch for alcohol withdrawal and will be prepared to treat and manage acco rdingly. The enzyme elevation is quite significant and will need to follow accordingly. Follow lactic acid, follow-up labs, pH and ABG. In concern for abdominal compartment syndrome which is known to occur in the situations with check bladder pressures as well. Past Medical History Cardiac Medical History: Reports: Hyperlipidema Past Surgical History Past Surgical History: Reports: None Social/Family History - Social History Smoking Status: Unknown if Ever Smoked Frequency of Alcohol Use: Heavy Amount of Alcoholic Beverages Per Day: significant Last Alcohol Use: 05/24/19 Hx Recreational Drug Use: No Hx Prescription Drug Abuse: No - Family History Family History: Other - Unable to obtain - Medication/Allergies Home Medications: No Home Medications 05/27/19 Allergies/Adverse Reactions: No Known Allergies Allergy (Verified 05/24/19 10:50) Review of Systems ROS unobtainable: Due to mental status Physical Exam Vital Signs: Temp Pulse Resp BP Pulse Ox 100.8 F H 119 H 12 113/56 L 72 L 05/28/19 02:00 05/28/19 00:47 05/28/19 00:47 05/28/19 02:14 05/28/19 02:14 Weight/Height Weight 91.8 kg Height 6 ft General appearance: PRESENT: cooperative, disheveled, well-developed, well- nourished Exam: Ill-appearing 48-year-old male confused no distress on initial examination. Became toxic appearing during cardiac arrest. Head exam: PRESENT: atraumatic, normocephalic Eye exam: PRESENT: conjunctival injection, conjunctiva pink, PERRLA. ABSENT: nystagmus, scleral icterus Ear exam: PRESENT: normal external ear exam Mouth exam: PRESENT: dry mucosa, neck supple Teeth exam: PRESENT: poor dentation Neck exam: ABSENT: carotid bruit, JVD, lymphadenopathy, meningismus, thyromegaly, tracheal deviation Respiratory exam: PRESENT: decreased breath sounds - At bases, tachypnea. ABSENT: unlabored Cardiovascular exam: PRESENT: RRR, tachycardia Pulses: ABSENT: normal dorsalis pedis pul Vascular exam: PRESENT: other - Increased capillary refill in lower extremities greater than 3 seconds. ABSENT: normal capillary refill GI/Abdominal exam: PRESENT: firm, hypoactive bowel sounds, soft, tenderness - Minimal tenderness in epigastric uncharacteristic of the amylase and lipase elevation, other - No bruising or discoloration of flanks or abdomen. ABSENT: ascites, distended, guarding, Ulrich's sign, rebound, rigid Rectal exam: PRESENT: deferred Gentrourinary exam: PRESENT: indwelling catheter Extremities exam: ABSENT: pedal edema Musculoskeletal exam: ABSENT: deformity, dislocation Neurological exam: PRESENT: altered, CN II-XII grossly intact, other - No focal motor deficits.. ABSENT: motor sensory deficit Psychiatric exam: PRESENT: anxious Focused psych exam: PRESENT: psychomotor agitation, restlessness. ABSENT: pressured speech Skin exam: PRESENT: dry, normal color, warm. ABSENT: cyanosis, mottled, petechiae, rash, urticaria, vesicles Tubes/Lines: PRESENT: Endotracheal Tube - [place] type urinary catheter, orogastric tube, Central Line Laboratory/Radiographs Laboratory Results: 05/27/19 03:33 05/27/19 03:33 05/24/19 05/24/19 05/24/19 11:08 11:08 21:00 Creatine Kinase CK-MB (CK-2) 3.19 Troponin I 0.013 0.056 NT-Pro-B Natriuret Pep 109 05/24/19 05/25/19 05/25/19 21:00 04:07 09:40 Creatine Kinase 403 H CK-MB (CK-2) Troponin I 0.106 0.122 NT-Pro-B Natriuret Pep 05/27/19 03:33 Creatine Kinase CK-MB (CK-2) Troponin I 0.098 NT-Pro-B Natriuret Pep Impressions: Abdomen/Pelvis CT 05/24/19 00:00 IMPRESSION: Marked fatty liver with a diffuse heterogeneous pattern to the liver but no focal masses. Extensive fluid around the pancreas and extending along the gutters and into the abdomen pelvis. Fluid around the liver and spleen. These findings related either to cirrhosis or pancreatitis. No contrast seen in the ureters on delayed imaging. Question early phase of imaging versus renal tubular dysfunction. Acute Abdomen Series 05/24/19 10:49 IMPRESSION: NO RADIOGRAPHIC EVIDENCE FOR ACUTE ABDOMINAL DISEASE. Head CT 05/24/19 13:32 IMPRESSION: NORMAL BRAIN CT WITHOUT CONTRAST. EVIDENCE OF ACUTE STROKE: NO. Chest/Abdomen CTA 05/24/19 14:09 IMPRESSION: No pulmonary emboli. Fluid in the interstitium of the lungs with basilar opacities and small effusions. Abdomen Ultrasound 05/25/19 00:00 IMPRESSION: 1. Limited ultrasound of the abdomen with non visualization of the pancreas, IVC, aorta and CBD due to overlying bowel. 2. Increased echogenicity of hepatic parenchyma consistent with diffuse hepatocellular disease (most commonly hepatic steatosis). 3. No hydronephrosis. 4. No splenomegaly. 5. Small amount of ascites. 6. Circumferential thickening of the gallbladder wall. KUB X-Ray 05/27/19 00:00 IMPRESSION: A nasogastric tube tip is seen overlying the left upper quadrant of the abdomen, projecting at the stomach. There is persistent enhancement of both kidneys which could be due to recent contrast administration or contrast nephropathy. All labs, radiographs, diagnostic studies and EKGs were personally reviewed: Yes In addition, reports of radiographic and diagnostic studies were read: Yes Critical Time Critical Time (minutes): 80 -: The care of a critically ill patient is dynamic. This note represents a static moment in the admission process. Orders and treatments may be given simultaneously and urgently, and time is not business center representative of the treatment process. This patient requires Critical Care secondary to life threatening organ or limb dysfunction. Without Critical Care services, the patient is at risk for increased mortality and morbidity.
== END 2019-05-28 06:58 | DRG 438 ==
LOC: ER 10:22 → EH 18:42 → ICU 20:30
PROVIDERS: ADMIT Internal Medicine Critical Care Medicine; ATTEND Internal Medicine Critical Care Medicine
PROC: 5A1945Z Respiratory Ventilation, 24-96 Consecutive Hours (ICD-10-PCS; principal; 2019-05-24)
PROC: 0BH17EZ Insertion of Endotracheal Airway into Trachea, Via Natural or Artificial Opening (ICD-10-PCS; 2019-05-24)
PROC: 03HY32Z Insertion of Monitoring Device into Upper Artery, Percutaneous Approach (ICD-10-PCS; 2019-05-24)
PROC: 02HV33Z Insertion of Infusion Device into Superior Vena Cava, Percutaneous Approach (ICD-10-PCS; 2019-05-24)
DX: K85.20 Alcohol induced acute pancreatitis without necrosis or infection (principal); J96.01 Acute respiratory failure with hypoxia; N17.1 Acute kidney failure with acute cortical necrosis; E87.2 Acidosis; T78.2XXA Anaphylactic shock, unspecified, initial encounter; R18.8 Other ascites; E87.1 Hypo-osmolality and hyponatremia; Z78.1 Physical restraint status; Y90.6 Blood alcohol level of 120-199 mg/100 ml; E78.5 Hyperlipidemia, unspecified; E83.51 Hypocalcemia; Z66 Do not resuscitate; E86.0 Dehydration; E78.00 Pure hypercholesterolemia, unspecified; T46.7X1A Poisoning by peripheral vasodilators, accidental (unintentional), initial encounter; I46.9 Cardiac arrest, cause unspecified; D64.9 Anemia, unspecified; I95.9 Hypotension, unspecified; T51.91XA Toxic effect of unspecified alcohol, accidental (unintentional), initial encounter; R11.2 Nausea with vomiting, unspecified; K76.0 Fatty (change of) liver, not elsewhere classified; R00.0 Tachycardia, unspecified; D69.6 Thrombocytopenia, unspecified; E78.1 Pure hyperglyceridemia; E83.39 Other disorders of phosphorus metabolism; I78.8 Other diseases of capillaries
CPT/HCPCS: 0099U; 31500; 36415; 36556; 36620; 51702; 70450; 71045; 71275; 74018; 74022; 74177; 76700; 80048; 80053; 80061; 80076; 80198; 80307; 81001; 82140; 82150; 82330; 82533; 82550; 82553; 82570; 82693; 82728; 82803; 82962; 83605; 83690; 83735; 83880; 83930; 83935; 84100; 84133; 84300; 84443; 84478; 84484; 85025; 85379; 85610; 85730; 86022; 86140; 86160; 86162; 86480; 86622; 86682; 86701; 86735; 87015; 87040; 87070; 87077; 87186; 87205; 87207; 87252; 87496; 87536; 87635; 93005; 93010; 93306; 93976; 94002; 94003; 94640; 96361; 96365; 96367; 96372; 96375; 99291; 99292; J0610; C9113; J0153; J0171; J0280; J0282; J0692; J0743; J1170; J1720; J1815; J2060; J2185; J2248; J2250; J2370; J2405; J2704; J3105; J3370; J3411; J3415; J3475; J3490; J7030; J7040; J7050; J7060; J7120; J7620; P9041; P9047; Q9968